=== PATIENT | female | born 1945 | race Caucasian/White ===

== ENCOUNTER 2018-03-14 01:33 | Inpatient (IN) | payer OTHER ==
[2018-03-14] MEDS ORDERED: HYDROCODONE/APAP 7.5/325 MG TAB ONE (02:33)
[2018-03-14] MEDS ORDERED: MEPERIDINE HCL 25 MG/0.5 ML ONE ×2 (03:40→05:04)
[2018-03-14] MEDS ORDERED: PROMETHAZINE 25 MG/ML VIAL ONE (03:41)
[2018-03-14 03:57] LABS: Absolute Lymphocytes (CBC) 1.3 K/uL (0.7-4.9); Absolute Neutrophil 14.5 K/uL (1.8-8.0); Basophils % 0.1 % (0-1.3); Eosinophils % 0.4 % (0-4.4); Hematocrit 41.5 % (36.0-45.0); MCH 27.3 pg (27.0-35.0); MCV 84.2 fL (80-100); MPV 7.7 fL (7.6-11.3); RBC Red Blood Cell Count 4.93 M/uL (3.86-4.86)
[2018-03-14 03:59] LABS: Protime INR 1.08
[2018-03-14 04:18] LABS: Potassium 3.6 mEq/L (3.6-5.0)
[2018-03-14 04:25] LABS: Albumin 4.2 g/dL (3.2-5.5); Bilirubin Direct 0.1 mg/dL (0-0.2); Bilirubin Total 0.4 mg/dL (0.3-1.2); Magnesium 1.9 mg/dL (1.8-2.5); Protein, Total 7.3 g/dL (6.0-8.3)
[2018-03-14 04:27] LABS: CKMB Creatine Kinase MB 2.7 ng/ml (0.3-4.0)
[2018-03-14] MEDS ORDERED: METOPROLOL TARTRATE 5 MG/5 ML INJ IV ONE (04:50)
--- NOTE | 2018-03-14 05:22 | EDPHYS ---
Physician Documentation [facility] Name: Rolando Cotto Age: 72 yrs Sex: Female : 1945 Arrival Date: 03/14/2018 Time: 01:49 Bed 15 Private MD: ED Physician Greg Antoine HPI: 03/14 02:51 This 72 yrs old Female presents to ER via EMS with unknown complaint. pkl 02:51 The patient or guardian reports an injury, pain. sustained from a fall. The complaints pkl affect the right hip. Onset: The symptoms/episode began/occurred just prior to arrival, 1 hour(s) ago. Associated signs and symptoms: Loss of consciousness: the patient experienced no loss of consciousness. Historical: - Allergies: 02:20 PENICILLINS; ea 02:20 Bactrim; ea - Home Meds: 02:20 carbamazepine 100 mg Oral chew 2 tabs every 8 hours [Active]; ea bisoprolol-hydrochlorothiazide 2.5-6.25 mg oral tab 1 tab once daily [Active]; losartan 100 mg oral tab 1 tab once daily [Active]; - PMHx: 02:20 Hypertension; ea - Immunization history:: Adult Immunizations up to date. - Social history:: Smoking status: Patient/guardian denies using tobacco. - Ebola Screening: : No symptoms or risks identified at this time. ROS: 02:51 Eyes: Negative for injury, pain, redness, and discharge, ENT: Negative for injury, pkl pain, and discharge, Neck: Negative for injury, pain, and swelling, Cardiovascular: Negative for chest pain, palpitations, and edema, Respiratory: Negative for shortness of breath, cough, wheezing, and pleuritic chest pain, Abdomen/GI: Negative for abdominal pain, nausea, vomiting, diarrhea, and constipation, Back: Negative for injury and pain, : Negative for injury, bleeding, discharge, and swelling. 02:51 MS/extremity: Positive for decreased range of motion, pain, of the right hip. 02:51 Skin: Negative for rash. 02:51 Neuro: Negative for altered mental status, loss of consciousness. Exam: 02:51 Head/Face: Normocephalic, atraumatic. Eyes: Pupils equal round and reactive to light, pkl extra-ocular motions intact. Lids and lashes normal. Conjunctiva and sclera are non-icteric and not injected. Cornea within normal limits. Periorbital areas with no swelling, redness, or edema. ENT: Nares patent. No nasal discharge, no septal abnormalities noted. Tympanic membranes are normal and external auditory canals are clear. Oropharynx with no redness, swelling, or masses, exudates, or evidence of obstruction, uvula midline. Mucous membranes moist. Neck: Trachea midline, no thyromegaly or masses palpated, and no cervical lymphadenopathy. Supple, full range of motion without nuchal rigidity, or vertebral point tenderness. No Meningismus. Chest/axilla: Normal chest wall appearance and motion. Nontender with no deformity. No lesions are appreciated. Cardiovascular: Regular rate and rhythm with a normal S1 and S2. No gallops, murmurs, or rubs. Normal PMI, no JVD. No pulse deficits. Respiratory: Lungs have equal breath sounds bilaterally, clear to auscultation and percussion. No rales, rhonchi or wheezes noted. No increased work of breathing, no retractions or nasal flaring. Abdomen/GI: Soft, non-tender, with normal bowel sounds. No distension or tympany. No guarding or rebound. No evidence of tenderness throughout. Back: No spinal tenderness. No costovertebral tenderness. Full range of motion. Skin: Warm, dry with normal turgor. Normal color with no rashes, no lesions, and no evidence of cellulitis. Neuro: Awake and alert, GCS 15, oriented to person, place, time, and situation. Cranial nerves II-XII grossly intact. Motor strength 5/5 in all extremities. Sensory grossly intact. Cerebellar exam normal. Normal gait. 02:51 Musculoskeletal/extremity: Extremities: grossly normal except: noted in the right hip: pain, tenderness, decreased ROM. Vital Signs: 01:30 BP 159 / 90; Pulse 129; Resp 18; Temp 97.6(O); Pulse Ox 93% on R/A; Weight 74.84 kg; ea Height 5 ft. 5 in. (165.10 cm); Pain 9/10; 03:51 BP 147 / 89; Pulse 144; Resp 18; Pulse Ox 97% on R/A; Pain 6/10; ea 04:30 BP 132 / 82; Pulse 139; Resp 18; Pulse Ox 98% ; ea 05:04 BP 138 / 72; Pulse 90; Resp 18; Pulse Ox 99% on 2 lpm NC; Pain 8/10; ea 05:44 BP 148 / 72; Pulse 84; Resp 18 S; Pulse Ox 97% on R/A; Pain 9/10; jd3 06:21 BP 131 / 58; Pulse 80; Resp 18; Temp 97.6(TE); Pulse Ox 99% on R/A; Pain 6/10; ea 01:30 Body Mass Index 27.46 (74.84 kg, 165.10 cm) ea MDM: 01:51 Patient medically screened. pkl 03:43 Data reviewed: vital signs, nurses notes, lab test result(s), EKG, radiologic studies, pkl plain films. 03/14 03:01 Order name: Basic Metabolic Panel; Complete Time: 04:59 pkl 03/14 03:01 Order name: BNP; Complete Time: 04:59 pkl 03/14 03:01 Order name: CBC with Diff; Complete Time: 06:26 pkl 03/14 03:01 Order name: Ckmb; Complete Time: 04:59 pkl 03/14 03:01 Order name: CPK; Complete Time: 04:59 pkl 03/14 03:01 Order name: LFT's; Complete Time: 04:59 pkl 03/14 02:31 Order name: Hip Right 2 View XRAY pkl 03/14 02:31 Order name: Pelvis XRAY pkl 03/14 03:00 Order name: XRAY CXR (1 view) pkl 03/14 03:01 Order name: Magnesium; Complete Time: 04:59 pkl 03/14 03:01 Order name: PT-INR; Complete Time: 04:59 pkl 03/14 03:01 Order name: Ptt, Activated; Complete Time: 04:59 pkl 03/14 03:01 Order name: Troponin (emerg Dept Use Only); Complete Time: 04:59 pkl 03/14 03:59 Order name: Manual Differential; Complete Time: 06:26 EDMS 03/14 03:01 Order name: EKG; Complete Time: 03:02 pkl 03/14 03:01 Order name: Cardiac monitoring; Complete Time: 04:49 pkl 03/14 03:01 Order name: EKG - Nurse/Tech; Complete Time: 04:49 pkl 03/14 03:01 Order name: IV Saline Lock; Complete Time: 04:50 pkl 03/14 03:01 Order name: Labs collected and sent; Complete Time: 04:50 pkl 03/14 03:01 Order name: O2 Per Protocol; Complete Time: 04:50 pkl 03/14 03:01 Order name: O2 Sat Monitoring; Complete Time: 04:50 pkl 03/14 03:01 Order name: Urine Dipstick-Ancillary (obtain specimen); Complete Time: 04:50 pkl Administered Medications: 02:35 Drug: [place] (7.5 mg-325 mg) 1 tabs Route: PO; ea 03:00 Follow up: Response: Pain is decreased jd3 04:19 Drug: Phenergan 12.5 mg Route: IVP; Site: right antecubital; ea 05:47 Follow up: Response: No adverse reaction; Nausea is decreased jd3 04:20 Drug: Demerol 25 mg Route: IVP; Site: right antecubital; ea 05:20 Follow up: Response: No adverse reaction jd3 05:00 Drug: NS 0.9% 1000 ml Route: IV; Rate: 100 ml/hr; Site: left antecubital; ea 05:47 Follow up: Response: No adverse reaction; IV Status: Infusion continued upon admission jd3 05:00 Drug: Lopressor 5 mg Route: IVP; Site: right antecubital; ea 05:47 Follow up: Response: Marked relief of symptoms jd3 05:12 Drug: Demerol 25 mg Route: IVP; Site: right antecubital; ea 05:40 Follow up: Response: No adverse reaction; Pain is unchanged, physician notified jd3 05:44 Drug: fentaNYL (PF) 50 mcg Route: IVP; Site: right antecubital; ea 06:11 Follow up: Response: No adverse reaction; Pain is decreased ea Disposition: 03/14/18 05:22 Hospitalization ordered by Jewel Mendiola for Inpatient Admission. Preliminary diagnosis is Subcapital fracture right femur. Supraventricular tachycardia. - Bed requested for Telemetry/MedSurg (Inpatient). - Status is Inpatient Admission. ea - Condition is Stable. - Problem is new. - Symptoms have improved. UTI on Admission? No Signatures: Dispatcher [employer] EDWY Elsa Mcmahon RN Greg Fragoso MD MD pkl Vivien David RN RN ea Davies, Jonathon RN jd3 Corrections: (The following items were deleted from the chart) 05:29 05:22 Hospitalization Ordered by Jewel Mendiola MD for Inpatient Admission. Preliminary mw diagnosis is Subcapital fracture right femur. Supraventricular tachycardia. Bed requested for Telemetry/MedSurg (Inpatient). Status is Inpatient Admission. Condition is Stable. Problem is new. Symptoms have improved. UTI on Admission? No. pkl 06:22 05:29 03/14/2018 05:22 Hospitalization Ordered by Jewel Mendiola MD for Inpatient ea Admission. Preliminary diagnosis is Subcapital fracture right femur. Supraventricular tachycardia. Bed requested for Telemetry/MedSurg (Inpatient). Status is Inpatient Admission. Condition is Stable. Problem is new. Symptoms have improved. UTI on Admission? No. mw
--- NOTE | 2018-03-14 05:22 | ER ---
Nurse's Notes [facility] Name: Rolando Cotto Age: 72 yrs Sex: Female : 1945 Arrival Date: 03/14/2018 Time: 01:49 Bed 15 Private MD: Diagnosis: Subcapital fracture right femur. Supraventricular tachycardia Presentation: 03/14 01:30 Presenting complaint: EMS states: Pt lost balance and fell. Pt denied hitting head or ea LOC. EMS states pt reported pain to right upper thigh that radiated to the groin and lower back. Transition of care: patient was not received from another setting of care. Onset of symptoms was March 14, 2018. Risk Assessment: Do you want to hurt yourself or someone else? Patient reports no desire to harm self or others. Initial Sepsis Screen: Does the patient meet any 2 criteria? No. Patient's initial sepsis screen is negative. Does the patient have a suspected source of infection? No. Patient's initial sepsis screen is negative. Care prior to arrival: None. 01:30 Method Of Arrival: EMS: [facility] ea 01:30 Acuity: [place] 3 ea Triage Assessment: 01:30 General: Appears uncomfortable, Behavior is cooperative. Pain: Complains of pain in ea right quadriceps Pain radiates to pelvis Pain currently is 9 out of 10 on a pain scale. Quality of pain is described as aching. EENT: No signs and/or symptoms were reported regarding the EENT system. Neuro: Level of Consciousness is awake, alert, obeys commands, Oriented to person, place, time, situation. Cardiovascular: Heart tones S1 S2 present Patient's skin is warm and dry. Respiratory: Airway is patent Respiratory effort is even, unlabored, Respiratory pattern is regular, symmetrical, Breath sounds are clear bilaterally. GI: No signs and/or symptoms were reported involving the gastrointestinal system. : No signs and/or symptoms were reported regarding the genitourinary system. Derm: Skin is pink, warm \T\ dry. Musculoskeletal: Reports pain in right quadriceps. Historical: - Allergies: 02:20 PENICILLINS; ea 02:20 Bactrim; ea - Home Meds: 02:20 carbamazepine 100 mg Oral chew 2 tabs every 8 hours [Active]; ea bisoprolol-hydrochlorothiazide 2.5-6.25 mg oral tab 1 tab once daily [Active]; losartan 100 mg oral tab 1 tab once daily [Active]; - PMHx: 02:20 Hypertension; ea - Immunization history:: Adult Immunizations up to date. - Social history:: Smoking status: Patient/guardian denies using tobacco. - Ebola Screening: : No symptoms or risks identified at this time. Screenin:22 Abuse screen: Denies threats or abuse. Nutritional screening: No deficits noted. ea Tuberculosis screening: No symptoms or risk factors identified. Fall Risk Fall in past 12 months (25 points). Assessment: 02:00 Reassessment: Patient and/or family updated on plan of care and expected duration. Pain ea level reassessed. Patient is alert, oriented x 3, equal unlabored respirations, skin warm/dry/pink. Awaiting results. 03:30 Reassessment: Patient and/or family updated on plan of care and expected duration. Pain ea level reassessed. Patient is alert, oriented x 3, equal unlabored respirations, skin warm/dry/pink. 04:55 Reassessment: Patient and/or family updated on plan of care and expected duration. Pain ea level reassessed. Patient is alert, oriented x 3, equal unlabored respirations, skin warm/dry/pink. 05:13 Reassessment: Patient and/or family updated on plan of care and expected duration. Pain ea level reassessed. Pt resting with eyes closed, respirations even and unlabored, chest expansions even and symmetrical. No s/s of pain or discomfort noted at this time. 06:11 Reassessment: Patient and/or family updated on plan of care and expected duration. Pain ea level reassessed. Patient is alert, oriented x 3, equal unlabored respirations, skin warm/dry/pink. Report called to Jennifer on fourth floor. Vital Signs: 01:30 BP 159 / 90; Pulse 129; Resp 18; Temp 97.6(O); Pulse Ox 93% on R/A; Weight 74.84 kg; ea Height 5 ft. 5 in. (165.10 cm); Pain 9/10; 03:51 BP 147 / 89; Pulse 144; Resp 18; Pulse Ox 97% on R/A; Pain 6/10; ea 04:30 BP 132 / 82; Pulse 139; Resp 18; Pulse Ox 98% ; ea 05:04 BP 138 / 72; Pulse 90; Resp 18; Pulse Ox 99% on 2 lpm NC; Pain 8/10; ea 05:44 BP 148 / 72; Pulse 84; Resp 18 S; Pulse Ox 97% on R/A; Pain 9/10; jd3 06:21 BP 131 / 58; Pulse 80; Resp 18; Temp 97.6(TE); Pulse Ox 99% on R/A; Pain 6/10; ea 01:30 Body Mass Index 27.46 (74.84 kg, 165.10 cm) ea ED Course: 01:30 Patient has correct armband on for positive identification. Bed in low position. Call ea light in reach. Side rails up X2. 01:30 Arm band placed on right wrist. Patient placed in an exam room, on a stretcher, on ea oxygen, on pulse oximetry. 01:49 Patient arrived in ED. ea 01:51 Greg Antoine MD is Attending Physician. pkl 02:16 Triage completed. ea 02:46 Vivien David RN is Primary Nurse. ea 03:08 X-ray completed. Portable x-ray completed in exam room. Patient tolerated procedure kw well. 03:12 Hip Right 2 View XRAY In Process Unspecified. EDMS 03:12 Pelvis XRAY In Process Unspecified. EDMS 03:12 XRAY CXR (1 view) In Process Unspecified. EDMS 04:50 Inserted saline lock: 22 gauge in right forearm, using aseptic technique. Blood ea collected. 05:21 Jewel Mendiola MD is Hospitalizing Provider. pkl 05:30 No provider procedures requiring assistance completed. ea 06:21 Patient admitted, IV remains in place. ea Administered Medications: 02:35 Drug: [place] (7.5 mg-325 mg) 1 tabs Route: PO; ea 03:00 Follow up: Response: Pain is decreased jd3 04:19 Drug: Phenergan 12.5 mg Route: IVP; Site: right antecubital; ea 05:47 Follow up: Response: No adverse reaction; Nausea is decreased jd3 04:20 Drug: Demerol 25 mg Route: IVP; Site: right antecubital; ea 05:20 Follow up: Response: No adverse reaction jd3 05:00 Drug: NS 0.9% 1000 ml Route: IV; Rate: 100 ml/hr; Site: left antecubital; ea 05:47 Follow up: Response: No adverse reaction; IV Status: Infusion continued upon admission jd3 05:00 Drug: Lopressor 5 mg Route: IVP; Site: right antecubital; ea 05:47 Follow up: Response: Marked relief of symptoms jd3 05:12 Drug: Demerol 25 mg Route: IVP; Site: right antecubital; ea 05:40 Follow up: Response: No adverse reaction; Pain is unchanged, physician notified jd3 05:44 Drug: fentaNYL (PF) 50 mcg Route: IVP; Site: right antecubital; ea 06:11 Follow up: Response: No adverse reaction; Pain is decreased ea Outcome: 05:22 Decision to Hospitalize by Provider. pkjunaid 05:34 Instructed on the need for admit. ea 06:20 Admitted to Med/surg accompanied by tech, via stretcher, with chart, Report called to fred Rodriguez RN 06:20 Condition: stable 06:22 Patient left the ED. ea Signatures: Dispatcher [employer] EDGreg Razo MD MD pkl Whitley, Kimberlee kw Antunez, Elena, RN RN Arnadlo Garcia RN RN jd3
[2018-03-14] MEDS ORDERED: MORPHINE 2 MG/ML SYR IV PRN (05:27)
[2018-03-14] MEDS ORDERED: ONDANSETRON 4 MG/2 ML VIAL IV PRN (05:27)
[2018-03-14] MEDS ORDERED: FENTANYL CITR 100 MCG/2 ML ONE (05:44)
[2018-03-14] MEDS: NA CHLORIDE 0.9% 1,000 ML IV SCH ×3 (06:00→20:26)
[2018-03-14 06:08] LABS: Blood Morphology Comment NOT SEEN (NOT SEEN); Platelet Estimate ADEQ
--- NOTE | 2018-03-14 08:16 | RAD REPORT ---
EXAM DESCRIPTION: Guy Single View03/14/2018 3:12 am CLINICAL HISTORY: Chest pain COMPARISON: none FINDINGS: The lungs appear clear of acute infiltrate. An area of scarring is present within the lef t lung. Calcified left lung granuloma is seen. The heart is normal size IMPRESSION: No acute abnormalities displayed
--- NOTE | 2018-03-14 08:17 | RAD REPORT ---
EXAM DESCRIPTION: RAD - Pelvis - 03/14/2018 3:12 am CLINICAL HISTORY: Pelvic pain status post injury FINDINGS: A transcervical fracture involves the right femur with mild displacement of fracture fragm ents. No dislocation is seen
--- NOTE | 2018-03-14 08:18 | RAD REPORT ---
EXAM DESCRIPTION: RAD - Hip Right 2 View - 03/14/2018 3:12 am CLINICAL HISTORY: Right hip pain FINDINGS: A transcervical fracture involves the right femur with mild displacement of fracture fragm ents. No dislocation is seen
[2018-03-14 10:22] VITALS: BMI 32.5
[2018-03-14] MEDS: MORPHINE 4 MG/ML SYR IV PRN ×2 (11:49→17:54)
--- NOTE | 2018-03-14 13:47 | CON ---
Date of Consultation: 03/14/2018 History Of Present Illness: Ms. Cotto is a 72-year-old female, who was seen in the past for a diff erent problem, this being the left knee pain accompanied with arthritis. She has been admitted. She had a fall last night injuring her right lower extremity. She was seen and examined in the emergenc y department. She was ruled out for other injuries; however, x-rays demonstrated displaced femoral n caor fracture on the right. Physical Examination: All the long bones and joints are palpated without pain with the exception of her right hip, which is painful to palpation or manipulation. Diagnostic Data: X-rays were reviewed, which revealed a displaced femoral neck fracture on the right . Assessment: This is a 72-year-old female, now with a displaced femoral neck fracture on the right. All risks, benefits, and alternatives to bipolar hemiarthroplasty were discussed with the patient and her family. They state they understand things as presented and wishes to proceed. Most likely, we will proceed tomorrow probably around 4 p.m. and she should be n.p.o. after 8 a.m. tomorrow morning. Otherwise all of her questions have been invited and answered today. ILIANA Voice ID: [id number] Report ID: [id number]
[2018-03-14] MEDS: CARBAMAZEPINE 200 MG TAB PO SCH ×2 (14:19→20:26)
--- NOTE | 2018-03-14 17:58 | P.HP ---
Certification for Inpatient Patient admitted to: Inpatient With expected LOS: >2 Midnights Practitioner: I am a practitioner with admitting privileges, knowledge of patient current condition, hospital course, and medical plan of care. Services: Services provided to patient in accordance with Admission requirements found in Title 42 Section 412.3 of the Code of Federal Regulations Patient History Date of Service: 03/14/18 Reason for admission: RIGHT HIP PAIN, SP FALL History of Present Illness: MS. HINKLE FELL ON RIGHT TROCHANTER AFTER GETTING UP. SHE AT TIMES GOES SIDWAYS AFTER SHE GETS UP AND SO HAPPENED TODAY ALSO. SHE HAS SUBCAPITAL FRACTURE. Allergies guaifenesin Allergy (Verified 11/18/17 17:48) Nausea/Vomiting Penicillins Allergy (Verified 11/18/17 17:48) Itching sulfamethoxazole [From Bactrim] Allergy (Verified 11/18/17 17:48) Nausea/Vomiting trimethoprim [From Bactrim] Allergy (Verified 11/18/17 17:48) Nausea/Vomiting Home Medications: Bisoprolol Fumarate [Zebeta] 5 mg PO DAILY 03/14/18 Carbamazepine 100 mg PO TID 03/14/18 Losartan Potassium [Cozaar] 100 mg PO DAILY 03/14/18 - Past Medical/Surgical History Has patient received pneumonia vaccine in the past: Yes Diabetic: No -: HTN -: trigeminal naurialgia -: skin cancer -: brain surgery/ screws -: cesearian -: radial rhiesotomy -: right breast beningn cyst removal - Family History Mother -: Hypertension, Cancer Father -: Stroke, Cancer - Social History Smoking Status: Never smoker Alcohol use: No CD- Drugs: No Caffeine use: Yes Place of Residence: Home Review of Systems 10-point ROS is otherwise unremarkable Musculoskeletal: As per HPI Physical Examination - Vital Signs Temperature: 97.0 F Blood Pressure: 184/80 Pulse: 83 Respirations: 18 Pulse Ox (%): 97 - Physical Exam General: Alert, Moderate distress HEENT: Atraumatic, PERRLA, Mucous membr. moist/pink, EOMI, Sclerae nonicteric Neck: Supple, 2+ carotid pulse no bruit, No LAD, Without JVD or thyroid abnormality Respiratory: Clear to auscultation bilaterally, Normal air movement Cardiovascular: Regular rate/rhythm, Normal S1 S2 Gastrointestinal: Normal bowel sounds, No tenderness Musculoskeletal: Other (RIGHT HP PAIN, SEVERE.) Integumentary: No rashes Neurological: Normal gait, Normal speech, Normal strength at 5/5 x4 extr, Normal tone, Normal affect Lymphatics: No axilla or inguinal lymphadenopathy - Studies Laboratory Data (last 24 hrs) 03/14/18 03:28: PT 12.7 H, INR 1.08, APTT 29.8 03/14/18 03:28: WBC 16.9 H, Hgb 13.5, Hct 41.5, Plt Count 240 03/14/18 03:28: B-Natriuretic Peptide 90 03/14/18 03:28: Sodium 135, Potassium 3.6, BUN 16, Creatinine 0.88, Glucose 165 H, Magnesium 1.9, Total Bilirubin 0.4, AST 25, ALT 18, Alkaline Phosphatase 92 Assessment and Plan - Problems (Diagnosis) (1) Hip fracture, right Current Visit: Yes Status: Acute Plan: DR. NEVES TO DO SURGERY IN AM MEDICALLY CLEARED WITH MILD RISK NO PERSONAL HISTORY OF CAD, SYMPTOMS OR RISK FACTORS EXCEPT FOR AGE. Qualifiers: Encounter type: initial encounter Fracture type: closed Qualified Code(s) : S72.001A - Fracture of unspecified part of neck of right femur, initial encounter for closed fracture (2) Chronic skin ulcer with fat layer exposed Current Visit: Yes Status: Chronic Plan: LISETH HAD ONE MORE BIOPSY AND I HAVE TO SEND THIS TO DR VILLELA 3 LOCAL LOT ATTENDANT HAVE NO ANSWERS YET. - Advance Directives Does patient have a Living Will: Yes Does patient have a Durable POA for Healthcare: Yes
[2018-03-14] MEDS: GABAPENTIN 100 MG CAP PO SCH (20:25)
[2018-03-14] MEDS ORDERED: CARBAMAZEPINE 200 MG TAB PO SCH (21:00)
[2018-03-15] MEDS ORDERED: MORPHINE 4 MG/ML SYR ONE (05:00)
[2018-03-15] MEDS: CARBAMAZEPINE 200 MG TAB PO SCH ×3 (08:26→20:18)
[2018-03-15] MEDS: GABAPENTIN 100 MG CAP PO SCH ×3 (08:26→20:18)
[2018-03-15] MEDS: BISOPROLOL 5 MG TABLET PO SCH (08:27)
[2018-03-15] MEDS: LOSARTAN POTASSIUM 50 MG TABLET PO SCH (08:27)
[2018-03-15] MEDS ORDERED: HOME MED 1 EA UNK (Losartan Potassium [Cozaar] 100 MG) PO SCH (09:00)
[2018-03-15] MEDS: NA CHLORIDE 0.9% 1,000 ML IV SCH ×2 (11:39→23:00)
[2018-03-15] MEDS: MORPHINE 4 MG/ML SYR IV PRN (15:55)
--- NOTE | 2018-03-15 18:28 | P.PN ---
Subjective Date of Service: 03/15/18 Chief Complaint: RIGHT HIP PAIN, SP FALL Subjective: Improving (SURGERY TODAY) Review of Systems 10-point ROS is otherwise unremarkable Musculoskeletal: Leg Pain, As per HPI Physical Examination - Vital Signs Temperature: 98.6 F Blood Pressure: 178/90 Pulse: 87 Respirations: 18 Pulse Ox (%): 96 - Physical Exam General: Alert, Mild distress HEENT: Atraumatic, PERRLA, EOMI Neck: Supple, JVD not distended Respiratory: Clear to auscultation bilaterally, Normal air movement Cardiovascular: Regular rate/rhythm, Normal S1 S2 Gastrointestinal: Normal bowel sounds, No tenderness Musculoskeletal: Other Integumentary: No rashes Neurological: Normal speech, Normal tone, Normal affect Lymphatics: No axilla or inguinal lymphadenopathy - Studies Medications List Reviewed: Yes Assessment And Plan - Current Problems (Diagnosis) (1) Hip fracture, right Current Visit: Yes Status: Acute Plan: DR. NEVES TO DO SURGERY IN AM MEDICALLY CLEARED WITH MILD RISK NO PERSONAL HISTORY OF CAD, SYMPTOMS OR RISK FACTORS EXCEPT FOR AGE. SURGERY TODAY. Qualifiers: Encounter type: initial encounter Fracture type: closed Qualified Code(s) : S72.001A - Fracture of unspecified part of neck of right femur, initial encounter for closed fracture (2) Chronic skin ulcer with fat layer exposed Current Visit: Yes Status: Chronic Plan: LISETH HAD ONE MORE BIOPSY AND I HAVE TO SEND THIS TO DR VILLELA 3 LOCAL CORPORATE SAFETY DIRECTOR HAVE NO ANSWERS YET. BX REPORT SHOWS ARTHROPOD INFESTATION REACTION. I ADVISED NEW MATTRESS TO THEM AND WASH SHEETS IN HOT WATER.
[2018-03-15] MEDS ORDERED: ENOXAPARIN 30 MG/0.3 ML SQ ONE (19:00)
[2018-03-16] MEDS: MORPHINE 4 MG/ML SYR IV PRN ×3 (04:21→22:37)
[2018-03-16] MEDS: NA CHLORIDE 0.9% 1,000 ML IV SCH ×2 (08:42→18:00)
[2018-03-16] MEDS: LOSARTAN POTASSIUM 50 MG TABLET PO SCH (08:42)
[2018-03-16] MEDS: CARBAMAZEPINE 200 MG TAB PO SCH ×3 (08:43→22:30)
[2018-03-16] MEDS: GABAPENTIN 100 MG CAP PO SCH ×3 (08:44→22:31)
[2018-03-16] MEDS: BISOPROLOL 5 MG TABLET PO SCH (08:44)
[2018-03-16] MEDS: TRIAMCINOLONE ACETONIDE IH SCH (08:50)
[2018-03-16] MEDS ORDERED: Ringers Lactate 1,000 ML IV ONE ×2 (12:50→16:20)
[2018-03-16] MEDS ORDERED: LIDOCAINE 1% MPF 5 ML VIAL ONE (13:40)
[2018-03-16] MEDS ORDERED: FENTANYL CITR 100 MCG/2 ML ONE ×2 (13:40→15:54)
[2018-03-16] MEDS ORDERED: PROPOFOL 200 MG/20 ML VIAL IV ONE (13:40)
[2018-03-16] MEDS ORDERED: TRANEXAMIC ACID 1,000 MG in NA CHLORIDE 0.9% 50 ML IV SCH (14:15)
[2018-03-16] MEDS ORDERED: CLINDAMYCIN INJ 900 MG in NA CHLORIDE 0.9% 50 ML IV ONE (14:15)
[2018-03-16] MEDS ORDERED: ROCURONIUM 50 MG/5 ML VIAL IV ONE ×2 (14:22→15:47)
[2018-03-16] MEDS ORDERED: EPHEDRINE SULF 50 MG/ML SYR ONE (15:10)
[2018-03-16] MEDS ORDERED: NS 0.9% VIAL 10 ML ONE (15:11)
[2018-03-16] MEDS ORDERED: NA CHLORIDE 0.9% 1,000 ML ONE (16:20)
[2018-03-16] MEDS ORDERED: GLYCOPYRROLATE 0.2 MG/ML SYR ONE (16:49)
[2018-03-16] MEDS ORDERED: NEOSTIGMINE 1 MG/ML -5 ML SYRINGE ONE (16:58)
--- NOTE | 2018-03-16 16:58 | P.BOP ---
Preoperative diagnosis: right hip femoral neck fx Postoperative diagnosis: same Primary procedure: right hip hemiarthoplasty Estimated blood loss: 300 ccs Anesthesia: General Complications: None Transferred to: Recovery Room Condition: Good
[2018-03-16] MEDS ORDERED: MEPERIDINE HCL 25 MG/0.5 ML ONE (17:30)
--- NOTE | 2018-03-16 21:25 | P.PN ---
Subjective Date of Service: 03/16/18 Chief Complaint: RIGHT HIP PAIN, SP FALL SURGERY TODAY. DELAYED BYA DAY. Review of Systems 10-point ROS is otherwise unremarkable Physical Examination - Vital Signs Temperature: 97.4 F Blood Pressure: 133/59 Pulse: 77 Respirations: 17 Pulse Ox (%): 94 - Physical Exam General: Alert, In no apparent distress HEENT: Atraumatic, PERRLA, EOMI Neck: Supple, JVD not distended Respiratory: Clear to auscultation bilaterally, Normal air movement Cardiovascular: Regular rate/rhythm, Normal S1 S2 Gastrointestinal: Normal bowel sounds, No tenderness Musculoskeletal: No tenderness Integumentary: No rashes Neurological: Normal speech, Normal tone, Normal affect Lymphatics: No axilla or inguinal lymphadenopathy - Studies Medications List Reviewed: Yes Assessment And Plan - Current Problems (Diagnosis) (1) Hip fracture, right Current Visit: Yes Status: Acute Plan: DR. NEVES TO DO SURGERY IN AM MEDICALLY CLEARED WITH MILD RISK NO PERSONAL HISTORY OF CAD, SYMPTOMS OR RISK FACTORS EXCEPT FOR AGE. SURGERY TODAY. Qualifiers: Encounter type: initial encounter Fracture type: closed Qualified Code(s) : S72.001A - Fracture of unspecified part of neck of right femur, initial encounter for closed fracture (2) Chronic skin ulcer with fat layer exposed Current Visit: Yes Status: Chronic Plan: LISETH HAD ONE MORE BIOPSY AND I HAVE TO SEND THIS TO DR VILLELA 3 LOCAL ONLINE EDITOR HAVE NO ANSWERS YET. BX REPORT SHOWS ARTHROPOD INFESTATION REACTION. I ADVISED NEW MATTRESS TO THEM AND WASH SHEETS IN HOT WATER. SHE HAS SPORADIC RARE SPOTS, NONE ACTIVE FOR NOW SKIN DOES NOT HAVE ANY ACUTE INFESTATTION.
[2018-03-17] MEDS: NA CHLORIDE 0.9% 1,000 ML IV SCH ×4 (00:12→20:44)
[2018-03-17] MEDS ORDERED: CEFAZOLIN/NS 1gm 1 GM/50 ML BAG IVPB SCH (01:00)
[2018-03-17] MEDS ORDERED: CEFAZOLIN SODIUM 1 GM/VIAL ONE (01:17)
[2018-03-17] MEDS ORDERED: NA CHLORIDE 0.9% 50 ML ONE (01:30)
[2018-03-17] MEDS: MORPHINE 4 MG/ML SYR IV PRN ×3 (02:12→10:21)
--- NOTE | 2018-03-17 03:29 | OP ---
Date of Procedure: 03/16/2018 Surgeon: Jb Patel MD Preoperative Diagnosis: Right hip femoral neck fracture which is displaced. Postoperative Diagnosis: Right hip femoral neck fracture which is displaced. Procedure: Right hip hemiarthroplasty using the Biomet fracture stem which is cemented. Complications: There were no complications. Specimen: The bone was sent to Pathology. Estimated Blood Loss: 300 cc. Indication For Operation: Ms. Cotto is a 72-year-old female who unfortunately fell injuring her [facility] lower extremity. She was seen and examined in the emergency department, where she was ruled out for other injuries. However, unfortunately, x-rays demonstrated a displaced right femoral neck fract ure. All risks, benefits, and alternatives of treating this have been discussed with the patient and family. They state they understand things as presented and wished to proceed. Description Of Procedure: The patient was taken to the operating room and placed in supine position. General anesthesia was obtained by Anesthesia staff. Following this, she was then transferred onto the operative table. She was then rolled left side down with all her bony prominences being checked and an axillary roll being used. She was then properly positioned using the hip positioners. Her [facility] lower extremity was then prepped and draped in usual sterile fashion for the procedure. A stand cynthia posterolateral incision was then taken down carefully through skin and soft tissue. There was qu ite a bit of adipose tissue. However, the correct incisional plane was maintained as we progress thr ough the adipose tissue with meticulous hemostasis being maintained. Following this, the fascia was encountered. A small stab wound was made in the fascia. The gluteal tendon was palpated to ensure c orrect placement of the fascial incision. This was then brought up slowly until near the tip of the greater trochanter when the fibers of the gluteus frank were encountered. They were then divided. Following this, some bursal tissue was removed and then the external rotators and capsule were then taken down and tagged for later repair. A Hohmann was placed under the lesser trochanter and a stand cynthia corduroy cutter operator perhaps slightly lower than standard neck cut was then achieved. This was followed b y removal of the neck pieces. The head was then removed and sized by ring gauges. Any obstructions or material within the acetabulum was gently removed. This was then irrigated. Following this, atte ntion turned back to the femur where a box shook patcher was used to lateralize. This was followed by cylin drical reaming up to a size 15, which was fairly surprising. However, broaching progressed to a size 13 progressing with a 14 may have been possible but perhaps fracturing the femur. Therefore, decisi on was made to place an 11 stem cemented. Femoral canal was then copiously irrigated until it runs c lean. Two Ray-Tecs were placed within the acetabulum. Third generation cementation technique was th en used and the fracture stem was then placed to appropriate depth and appropriate version. This was held in place until the cement was allowed to harden. Any unsupported cement was removed. The Ray- Tecs were removed from the acetabulum. I then trialed with a +3. This was somewhat difficult to red uce because of the patient's size, however, after it was reduced was found to be stable to greater th an 90 degrees of flexion, full adduction, and at least 45 degrees of internal rotation. There was no shuck. She does come back to full extension as well demonstrating it did not appear to be too tight . The trial ball was then removed. The wound was copiously irrigated and checked for any obstructio ns in the acetabulum. The final ball was then placed and relocated. It was stable and the same para meters. It was again irrigated and the external rotators and capsule were repaired back to the great er trochanter via bone tunnels. Had again irrigated and the fascia closed in a watertight fashion us ing heavy Vicryl sutures. Was again irrigated and the skin was closed using Vicryl sutures, followed by brooks. The patient was then placed in Aquacel dressing as well as a hip abduction pillow, awakened, and taken to recovery room in good condition. There were no complica tions. SE/MODL Voice ID: [id number] Report ID: [id number]
[2018-03-17 05:21] LABS: Absolute Lymphocytes (CBC) 1.1 K/uL (0.7-4.9); Absolute Neutrophil 7.7 K/uL (1.8-8.0); Basophils % 0.4 % (0-1.3); Eosinophils % 0.4 % (0-4.4); Hematocrit 30.8 % (36.0-45.0); Lymphocytes % 11.3 % (15.3-44.8); MCH 28.6 pg (27.0-35.0); MPV 8.1 fL (7.6-11.3); RBC Red Blood Cell Count 3.76 M/uL (3.86-4.86)
[2018-03-17 05:40] LABS: Potassium 3.8 mEq/L (3.6-5.0)
[2018-03-17] MEDS ORDERED: CEFAZOLIN/SWI 1gm 1 GM/10 ML SYR IV ONE (09:00)
[2018-03-17] MEDS: TRIAMCINOLONE ACETONIDE IH SCH (09:00)
[2018-03-17] MEDS: CARBAMAZEPINE 200 MG TAB PO SCH ×3 (09:05→20:39)
[2018-03-17] MEDS: BISOPROLOL 5 MG TABLET PO SCH (09:06)
[2018-03-17] MEDS: GABAPENTIN 100 MG CAP PO SCH ×3 (09:07→20:39)
[2018-03-17] MEDS: LOSARTAN POTASSIUM 50 MG TABLET PO SCH (09:07)
--- NOTE | 2018-03-17 13:08 | P.PN ---
Subjective Date of Service: 03/17/18 Chief Complaint: RIGHT HIP PAIN, SP FALL Subjective: Improving SURGERY TODAY. DELAYED BYA DAY. SP HIP REPAIR. Review of Systems 10-point ROS is otherwise unremarkable Physical Examination - Vital Signs Temperature: 99.2 F Blood Pressure: 144/68 Pulse: 104 Respirations: 18 Pulse Ox (%): 97 - Physical Exam General: Alert, Mild distress HEENT: Atraumatic, PERRLA, EOMI Neck: Supple, JVD not distended Respiratory: Clear to auscultation bilaterally, Normal air movement Cardiovascular: Regular rate/rhythm, Normal S1 S2 Gastrointestinal: Normal bowel sounds, No tenderness Musculoskeletal: No tenderness Integumentary: No rashes Neurological: Normal speech, Normal tone, Normal affect Lymphatics: No axilla or inguinal lymphadenopathy - Studies Medications List Reviewed: Yes Assessment And Plan - Current Problems (Diagnosis) (1) Hip fracture, right Current Visit: Yes Status: Acute Plan: DR. NEVES TO DO SURGERY IN AM MEDICALLY CLEARED WITH MILD RISK NO PERSONAL HISTORY OF CAD, SYMPTOMS OR RISK FACTORS EXCEPT FOR AGE. SURGERY TODAY. SP SURGERY STABLE TOREHAB IN AM. Qualifiers: Encounter type: initial encounter Fracture type: closed Qualified Code(s) : S72.001A - Fracture of unspecified part of neck of right femur, initial encounter for closed fracture (2) Chronic skin ulcer with fat layer exposed Current Visit: Yes Status: Chronic Plan: LISETH HAD ONE MORE BIOPSY AND I HAVE TO SEND THIS TO DR VILLELA 3 LOCAL VENEER DRIER TAILER HAVE NO ANSWERS YET. BX REPORT SHOWS ARTHROPOD INFESTATION REACTION. I ADVISED NEW MATTRESS TO THEM AND WASH SHEETS IN HOT WATER. SHE HAS SPORADIC RARE SPOTS, NONE ACTIVE FOR NOW SKIN DOES NOT HAVE ANY ACUTE INFESTATTION.
[2018-03-17] MEDS: ACETAMINOPHEN 500 MG TAB PO PRN (15:10)
[2018-03-17] MEDS: ENOXAPARIN 30 MG/0.3 ML SQ SCH (20:46)
--- NOTE | 2018-03-18 03:09 | DS ---
Subjective: The patient is seen today. She has recently completed physical therapy. She physical therapy for a while. When she attempted to stand, she was a little lightheaded and therefo re did very limited standing today, but otherwise doing well. Her heels are nontender. EHL, tibiali s anterior, and plantar flexion are strong. Her dressing is clean, dry, and intact. Her hemoglobin was in the 10s. At this point, we will start Lovenox. We will continue with physical therapy. I wi ll follow her at this time. ILIANA Voice ID: [id number] Report ID: [id number]
[2018-03-18] MEDS: ACETAMINOPHEN 500 MG TAB PO PRN ×2 (04:15→13:40)
[2018-03-18 05:37] LABS: Absolute Lymphocytes (CBC) 1.3 K/uL (0.7-4.9); Absolute Monocytes 1.4 K/uL (0.1-1.3); Absolute Neutrophil 7.5 K/uL (1.8-8.0); Basophils % 0.4 % (0-1.3); Eosinophils % 0.5 % (0-4.4); Hematocrit 28.1 % (36.0-45.0); Lymphocytes % 12.8 % (15.3-44.8); MCH 28.4 pg (27.0-35.0); MCV 82.8 fL (80-100); MPV 8.5 fL (7.6-11.3); Monocytes % 13.7 % (3.3-12.3); RBC Red Blood Cell Count 3.39 M/uL (3.86-4.86)
[2018-03-18] MEDS: NA CHLORIDE 0.9% 1,000 ML IV SCH ×3 (06:29→20:00)
[2018-03-18] MEDS: TRIAMCINOLONE ACETONIDE IH SCH (09:00)
[2018-03-18] MEDS: LOSARTAN POTASSIUM 50 MG TABLET PO SCH (10:23)
[2018-03-18] MEDS: BISOPROLOL 5 MG TABLET PO SCH (10:23)
[2018-03-18] MEDS: ENOXAPARIN 30 MG/0.3 ML SQ SCH ×2 (10:23→20:59)
[2018-03-18] MEDS: GABAPENTIN 100 MG CAP PO SCH ×3 (10:23→20:58)
[2018-03-18] MEDS: CARBAMAZEPINE 200 MG TAB PO SCH ×3 (10:23→20:59)
--- NOTE | 2018-03-18 16:47 | RAD REPORT ---
EXAM DESCRIPTION: RAD - Chest Single View - 03/18/2018 4:29 pm CLINICAL HISTORY: Fever, chest pain COMPARISON: 03/14/2018 FINDINGS: Portable technique limits examination quality. The lungs are grossly clear. The heart is normal in size. No displaced fractures. IMPRESSION: No acute intrathoracic process suspected.
--- NOTE | 2018-03-18 16:53 | P.PN ---
Subjective Date of Service: 03/18/18 Chief Complaint: FEVER TODAY Subjective: New changes SURGERY TODAY. DELAYED BYA DAY. SP HIP REPAIR. FEVER THIS PM NURSE CALLED. Review of Systems 10-point ROS is otherwise unremarkable General: Fever Physical Examination - Vital Signs Temperature: 101.5 F Blood Pressure: 152/70 Pulse: 104 Respirations: 18 Pulse Ox (%): 92 - Physical Exam General: Mild distress (FROM HIP.) HEENT: Atraumatic, PERRLA, EOMI Neck: Supple, JVD not distended Respiratory: Clear to auscultation bilaterally, Normal air movement Cardiovascular: Regular rate/rhythm, Normal S1 S2 Gastrointestinal: Normal bowel sounds, No tenderness Musculoskeletal: No tenderness Integumentary: No rashes Neurological: Normal speech, Normal tone, Normal affect Lymphatics: No axilla or inguinal lymphadenopathy - Studies Medications List Reviewed: Yes Assessment And Plan - Current Problems (Diagnosis) (1) Hip fracture, right Current Visit: Yes Status: Acute Plan: DR. NEVES TO DO SURGERY IN AM MEDICALLY CLEARED WITH MILD RISK NO PERSONAL HISTORY OF CAD, SYMPTOMS OR RISK FACTORS EXCEPT FOR AGE. SURGERY TODAY. SP SURGERY STABLE TOREHAB IN AM. Qualifiers: Encounter type: initial encounter Fracture type: closed Qualified Code(s) : S72.001A - Fracture of unspecified part of neck of right femur, initial encounter for closed fracture (2) Chronic skin ulcer with fat layer exposed Current Visit: Yes Status: Chronic Plan: LISETH HAD ONE MORE BIOPSY AND I HAVE TO SEND THIS TO DR VILLELA 3 LOCAL QUILLER HAND HAVE NO ANSWERS YET. BX REPORT SHOWS ARTHROPOD INFESTATION REACTION. I ADVISED NEW MATTRESS TO THEM AND WASH SHEETS IN HOT WATER. SHE HAS SPORADIC RARE SPOTS, NONE ACTIVE FOR NOW SKIN DOES NOT HAVE ANY ACUTE INFESTATTION. (3) Fever Current Visit: Yes Status: Acute Plan: NO SOURCE OF INFECTION NO RESP, GI, , NEURO OR DERMAL SYMPTOMS DO TWO CS [facility] CATH. AFTER REMOVING DAWSON. HOLD OFF ON ABX UNTIL CLEAR SOURCE IT MAY FROM POST OP HEMATOMA. STABLE. WILL WATCH DAILY
[2018-03-18 19:25] LABS: Urine Appearance CLEAR; Urine Bilirubin NEGATIVE (NEG); Urine Blood NEGATIVE (NEG); Urine Color YELLOW; Urine Glucose NEGATIVE (NEG); Urine Protein NEGATIVE (NEG)
[2018-03-18 19:45] LABS: Urine Bacteria <20 /HPF (<20); Urine Culture Reflex Order NOT NEEDED; Urine RBC <5 /HPF (NONE SEEN)
[2018-03-19] MEDS: NA CHLORIDE 0.9% 1,000 ML IV SCH ×2 (03:30→12:49)
[2018-03-19 07:04] LABS: BUN Blood Urea Nitrogen 9 mg/dL (6-20); Bicarbonate 24 mEq/L (21-31); Glucose Level 107 mg/dL (65-120); Potassium 3.6 mEq/L (3.6-5.0); Sodium Level 138 mEq/L (135-145)
[2018-03-19 07:16] LABS: Absolute Lymphocytes (CBC) 1.1 K/uL (0.7-4.9); Absolute Monocytes 0.9 K/uL (0.1-1.3); Absolute Neutrophil 6.7 K/uL (1.8-8.0); Basophils % 0.6 % (0-1.3); Eosinophils % 1.1 % (0-4.4); Hematocrit 28.2 % (36.0-45.0); Lymphocytes % 12.9 % (15.3-44.8); MCH 28.5 pg (27.0-35.0); MCV 82.7 fL (80-100); MPV 8.6 fL (7.6-11.3); Monocytes % 9.7 % (3.3-12.3)
[2018-03-19 07:18] LABS: Urine White Blood Cell Casts OK
[2018-03-19 07:19] LABS: Blood Morphology Comment NOT SEEN (NOT SEEN); Platelet Estimate ADEQ
[2018-03-19] MEDS: TRIAMCINOLONE ACETONIDE IH SCH (08:57)
[2018-03-19] MEDS: ENOXAPARIN 30 MG/0.3 ML SQ SCH ×2 (08:58→20:07)
[2018-03-19] MEDS: CARBAMAZEPINE 200 MG TAB PO SCH ×3 (08:59→20:07)
[2018-03-19] MEDS: GABAPENTIN 100 MG CAP PO SCH ×3 (08:59→20:07)
[2018-03-19] MEDS: BISOPROLOL 5 MG TABLET PO SCH (09:00)
[2018-03-19] MEDS: LOSARTAN POTASSIUM 50 MG TABLET PO SCH (09:00)
--- NOTE | 2018-03-19 11:26 | P.DS ---
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 HINKLE FELL ON RIGHT TROCHANTER AFTER GETTING UP. SHE AT TIMES GOES SIDWAYS AFTER SHE GETS UP AND SO HAPPENED TODAY ALSO. SHE HAS SUBCAPITAL FRACTURE. MR. HINKLE HAD FEVER YESTERDAY, SHE HAS NO SIGNS OF INFECTION. FEVER CAN HAPPEN WITH HEMATOMA, POST OP. SHE IS STABLE FOR REHAB. Vital Signs/Physical Exam: Temp Pulse Resp BP Pulse Ox 98.4 F 100 H 18 154/74 H 93 03/19/18 08:00 03/19/18 09:00 03/19/18 08:00 03/19/18 09:00 03/19/18 08:00 Laboratory Data at Discharge: WBC 8.9 K/uL (4.3-10.9) 03/19/18 05:33 Hgb 9.7 g/dL (12.0-15.0) L 03/19/18 05:33 Hct 28.2 % (36.0-45.0) L 03/19/18 05:33 Plt Count 173 K/uL (152-406) 03/19/18 05:33 PT 12.7 SECONDS (9.5-12.5) H 03/14/18 03:28 INR 1.08 03/14/18 03:28 APTT 29.8 SECONDS (24.3-36.9) 03/14/18 03:28 Sodium 138 mEq/L (135-145) 03/19/18 05:33 Potassium 3.6 mEq/L (3.6-5.0) 03/19/18 05:33 BUN 9 mg/dL (6-20) 03/19/18 05:33 Creatinine 0.65 mg/dL (0.44-1.00) 03/19/18 05:33 Glucose 107 mg/dL (65-120) 03/19/18 05:33 Magnesium 1.9 mg/dL (1.8-2.5) 03/14/18 03:28 Total Bilirubin 0.4 mg/dL (0.3-1.2) 03/14/18 03:28 AST 25 IU/L (10-42) 03/14/18 03:28 ALT 18 IU/L (10-60) 03/14/18 03:28 Alkaline Phosphatase 92 IU/L (42-121) 03/14/18 03:28 B-Natriuretic Peptide 90 pg/ml (<=100) 03/14/18 03:28 Home Medications: Bisoprolol Fumarate [Zebeta*] 5 mg PO DAILY 03/14/18 Carbamazepine 100 mg PO TID 03/14/18 Losartan Potassium [Cozaar] 100 mg PO DAILY 03/14/18 Triamcinolone Acetonide [Nasacort] 2 sprays IH DAILY 03/15/18 Enoxaparin Sodium [Lovenox 30 MG INJ*] 30 mg SQ Q12HR #1 syr 03/18/18 Gabapentin [Neurontin*] 100 mg PO TID #1 cap 03/18/18 New Medications: Enoxaparin Sodium [Lovenox 30 MG INJ*] 30 mg SQ Q12HR #1 syr Gabapentin [Neurontin*] 100 mg PO TID #1 cap Followup: Jewel Mendiola MD [Primary Care Provider] - Jb Patel MD [ACTIVE - CAN ADMIT] - 1-2 Weeks (Call to schedule an appointment)
[2018-03-19] MEDS: ACETAMINOPHEN 325 MG TABLET PO PRN ×2 (12:47→20:08)
[2018-03-19] MEDS ORDERED: MAGNESIUM HYDROXIDE 8% 30 ML PO ONE (12:55)
[2018-03-20] MEDS: NA CHLORIDE 0.9% 1,000 ML IV SCH (00:57)
[2018-03-20 06:01] LABS: Absolute Monocytes 0.7 K/uL (0.1-1.3); Absolute Neutrophil 4.7 K/uL (1.8-8.0); Basophils % 0.6 % (0-1.3); Eosinophils % 1.8 % (0-4.4); Hematocrit 25.7 % (36.0-45.0); Lymphocytes % 15.3 % (15.3-44.8); MCV 82.1 fL (80-100); MPV 8.2 fL (7.6-11.3); Monocytes % 11.2 % (3.3-12.3); RBC Red Blood Cell Count 3.13 M/uL (3.86-4.86)
[2018-03-20 08:36] VITALS: O2SAT 94
[2018-03-20] MEDS: TRIAMCINOLONE ACETONIDE IH SCH (08:40)
[2018-03-20] MEDS: ENOXAPARIN 30 MG/0.3 ML SQ SCH (08:45)
[2018-03-20] MEDS: BISOPROLOL 5 MG TABLET PO SCH (08:46)
[2018-03-20] MEDS: GABAPENTIN 100 MG CAP PO SCH (08:46)
[2018-03-20 08:47] VITALS: BP 181/78
[2018-03-20] MEDS: LOSARTAN POTASSIUM 50 MG TABLET PO SCH (08:47)
[2018-03-20] MEDS: CARBAMAZEPINE 200 MG TAB PO SCH (08:47)
[2018-03-20 09:13] VITALS: TEMP 97.9
--- NOTE | 2018-03-20 11:11 | P.DS ---
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 HINKLE FELL ON RIGHT TROCHANTER AFTER GETTING UP. SHE AT TIMES GOES SIDWAYS AFTER SHE GETS UP AND SO HAPPENED TODAY ALSO. SHE HAS SUBCAPITAL FRACTURE. MR. HINKLE HAD FEVER YESTERDAY, SHE HAS NO SIGNS OF INFECTION. FEVER CAN HAPPEN WITH HEMATOMA, POST OP. SHE IS STABLE FOR REHAB. DC DELAYED ONE DAY REHAB CAN' ACCEPT PATIENTS WHEN THE REHAB DOCTOR IS NOT ABLE TO SEE PATIENT WITHIN 24 HOURS. MEDIALLY STABLE. Vital Signs/Physical Exam: Temp Pulse Resp BP Pulse Ox 97.9 F 99 H 20 181/78 H 93 03/20/18 08:00 03/20/18 08:46 03/20/18 08:00 03/20/18 08:46 03/20/18 08:00 Laboratory Data at Discharge: WBC 6.6 K/uL (4.3-10.9) D 03/20/18 05:16 Hgb 9.1 g/dL (12.0-15.0) L 03/20/18 05:16 Hct 25.7 % (36.0-45.0) L 03/20/18 05:16 Plt Count 193 K/uL (152-406) 03/20/18 05:16 PT 12.7 SECONDS (9.5-12.5) H 03/14/18 03:28 INR 1.08 03/14/18 03:28 APTT 29.8 SECONDS (24.3-36.9) 03/14/18 03:28 Sodium 138 mEq/L (135-145) 03/19/18 05:33 Potassium 3.6 mEq/L (3.6-5.0) 03/19/18 05:33 BUN 9 mg/dL (6-20) 03/19/18 05:33 Creatinine 0.65 mg/dL (0.44-1.00) 03/19/18 05:33 Glucose 107 mg/dL (65-120) 03/19/18 05:33 Magnesium 1.9 mg/dL (1.8-2.5) 03/14/18 03:28 Total Bilirubin 0.4 mg/dL (0.3-1.2) 03/14/18 03:28 AST 25 IU/L (10-42) 03/14/18 03:28 ALT 18 IU/L (10-60) 03/14/18 03:28 Alkaline Phosphatase 92 IU/L (42-121) 03/14/18 03:28 B-Natriuretic Peptide 90 pg/ml (<=100) 03/14/18 03:28 Home Medications: Bisoprolol Fumarate [Zebeta*] 5 mg PO DAILY 03/14/18 Carbamazepine 100 mg PO TID 03/14/18 Losartan Potassium [Cozaar] 100 mg PO DAILY 03/14/18 Triamcinolone Acetonide [Nasacort] 2 sprays IH DAILY 03/15/18 Enoxaparin Sodium [Lovenox 30 MG INJ*] 30 mg SQ Q12HR #1 syr 03/18/18 Gabapentin [Neurontin*] 100 mg PO TID #1 cap 03/18/18 New Medications: Enoxaparin Sodium [Lovenox 30 MG INJ*] 30 mg SQ Q12HR #1 syr Gabapentin [Neurontin*] 100 mg PO TID #1 cap Followup: Jewel Mendiola MD [Primary Care Provider] - Jb Patel MD [ACTIVE - CAN ADMIT] - 1-2 Weeks (Call to schedule an appointment)
== END 2018-03-20 11:40 | DRG 470 ==
LOC: ER 01:33 → ERHOLD 05:30 → 4TH 05:38
PROVIDERS: ADMIT Internal Medicine; ATTEND Internal Medicine
PROC: 0SRR0J9 Replacement of Right Hip Joint, Femoral Surface with Synthetic Substitute, Cemented, Open Approach (ICD-10-PCS; principal; 2018-03-16 13:00)
DX: S72.001A Fracture of unspecified part of neck of right femur, initial encounter for closed fracture (principal); I10 Essential (primary) hypertension; G50.0 Trigeminal neuralgia; L98.492 Non-pressure chronic ulcer of skin of other sites with fat layer exposed; W19.XXXA Unspecified fall, initial encounter
CPT/HCPCS: 36415; 71045; 72170; 80048; 80076; 81001; 82550; 82553; 83735; 83880; 84484; 85025; 85610; 85730; 87040; 87086; 87088; 88305; 88311; 96361; 96374; 96375; 97163; 99285; J0690; J1650; J2175; J2270; J2550; J2710; J3010; J7030

== ENCOUNTER 2018-03-18 12:53 | Inpatient (IN) | payer OTHER ==
--- NOTE | 2018-03-18 15:05 | R.PREADM ---
SCREENING DATE AND TIME 03/18/2018 13:22 (CDT) ANTICIPATED REHAB ADMISSION DATE 03/20/[address] [facility] [place], [place] REFERRAL DATE AND TIME 03/18/2018 13:22 (CDT) ACUTE ADMIT DATE 03/14/2018 Previous Rehabilitation(s): No. REFERRING PHYSICIAN Jewel Mendiola REHAB FACILITY [facility] CLINICAL LIAISON Andre Parikh PHYSICIAN REVIEWER Dr. Joao Robles M.D. [facility] [id number] [facility] [id number] NAME DOC HINKLE ADDRESS [address] [facility] [id number] DATE OF 1945 AGE 72 SSN# [id number] GENDER female MARITAL STATUS RACE white ADMIT FROM 02 - [facility] PRE-HOSPITAL LIVING SETTING 01 - Home (private home/apt. board/care, assisted living, shelter, transitional living) HOME TYPE AND DETAILS Type of home: single family house # of levels in the residence: 1 # of steps within the residence: 0 # of steps to enter the residence: 1 PRE-HOSPITAL LIVING WITH Family/Relatives FAMILY SUPPORT Yes PRIMARY FAMILY CONTACT NAME NITESH HINKLE PRIMARY FAMILY CONTACT PHONE PHONE PRIMARY FAMILY CONTACT ON ADM.? no IS PRIMARY FAMILY CONTACT AUTH. REP.? no 1ST EMERGENCY CONTACT NIETSH HINKLE 1ST CONTACT PHONE PHONE 1ST CONTACT ON ADM. no IS 1ST CONTACT AUTH. REP.? no PHONE 2ND CONTACT ON ADM.? no PATIENT EMPLOYMENT STATUS Retired (for age) PATIENT EMPLOYER No Employer PAYOR INFORMATION: 1ST PAYOR NAME MEDICARE 1ST PAYOR PHONE [phone] 1ST PAYOR INJURY/ILLNESS DUE TO ACCIDENT? No ANOTHER DEMOCRAT RESPONSIBLE? No PRIMARY REHAB/ACUTE DIAGNOSIS: RIGHT HIP FEMORAL NECK FRACTURE ONSET DATE 03/14/2018 REHAB IMPAIRMENT CATEGORY (ADRIAN): 07 Fracture of LE (FracLE) does NOT meet 60% rule AFFECTED EXTREMITIES: RLE PRIMARY DIAGNOSIS-RELATED SURGERIES: RIGHT HIP HEMIARTHROPLASTY on 03/16/2018 COMORBID REHAB/ACUTE DIAGNOSES: - N/A HTN TRIGEMINAL NEURALGIA SKIN CANCER SUMMARY OF ACUTE HOSPITALIZATION: Pt. is a 72 yo Right-handed white female. Her impairment category is Orthopaedic Disorders 08 - Femur (Shaft) Fracture (08.2). Pre-morbidly, Pt. was independent/mod-I in Social Cognition, Self-Care, Locomotion, Sphincter Control , Transfers Control, and Communication; and she had good Sphincter Control. Currently, she has deficits of Balance, Locomotion, Endurance, Safety Awareness, Transfers Control, a nd Self-Care. Pt. is now referred to [facility] for acute in-patient rehabilitation in order to maximize patient's functional independence in activities of daily living, strength, ROM, and mobi lity. Patient has realistic goal of being discharged at assistance level 6-Sherrie to reside at Home with Fam syed/Relatives. PAST MEDICAL HISTORY HTN SKIN CANCER TRIGEMINAL NEURALGIA PAST SURGICAL HISTORY: BRAIN SURGERY CAESARIAN RADIAL RHIESOTOMY RIGHT BREAST BENIGN CYST REMOVAL MEDICATION ALLERGIES: GUAIFENESIN PENICILLIN Sulfamethoxazole TRIMETHOPRIM ENVIRONMENTAL ALLERGIES: None Known - Substance Allergies None Known - Other Allergies None Known CODE STATUS: Full code WEIGHT/HEIGHT/BMI: WEIGHT 190 lbs HEIGHT 5' 4" BMI 32.6 DIET: - Diet Type Regular - Diet - Solid Texture Regular - Diet - Liquid Texture Regular - Tube Feed N/A SKIN DIAGRAM: Incision on Other; extent - small; stage - NS(Not Stageable). Treatment - Per Physician's Orders. REVIEW OF SYSTEMS: - Gen Alert and awake Lying in bed No apparent distress Oriented to: person, time, and place - Vital Signs Temperature: 98.2 F SBP/DBP: 119/67 Pulse: 105 Resp: 18 Vital signs stable, afebrile - CVS RRR VITAL SIGNS Temperature: 98.2 F SBP/DBP: 119/67 Pulse: 105 Resp: 18 Vital signs stable, afebrile CURRENT SPHINCTER CONTROL: Pre-hospital bladder status: continent # of bladder accidents in the last 7 days prior to screenin Pre-hospital bowel status: continent # of bowel accidents in the last 7 days prior to screenin Last Bowel Movement Date: DETAILED CURRENT FUNCTIONAL STATUS: - Bladder accident frequency: Ind - No accidents in the past 7 days - Bowel accident frequency: Ind - No accidents in the past 7 days - Walking score based on distance walked: 1(<=50ft) - Wheelchair score based on distance traveled: 0(N/A) FUNCTIONAL STATUS: - Self-Care A. Eating Ind Ind B. Grooming Ind Sherrie C. Bathing Ind Dot D. Dressing - Upper Ind Dot E. Dressing - Lower Ind Dot F. Toileting Ind Dot - Sphincter Control G: Bladder control Ind Ind H: Bowel control Ind Ind - Transfers Control I. Bed/Chair/Wheelchair Ind maxA J. Toilet Ind maxA K. Tub/Shower Ind ADNO - Locomotion L. Walk/Wheelchair (C) Ind maxA L. Walk/Wheelchair (W) Ind maxA M. Stairs Ind ADNO - Communication N. Comprehension (B) Ind Ind O. Expression (B) Ind Ind - Social Cognition P. Social Interaction Ind Ind Q. Problem Solving Ind Ind R. Memory Ind Ind - Endurance Fair - Balance Fair - Safety Awareness Fair CURRENT FUNC. DEFICITS: Balance, Locomotion, Endurance, Safety Awareness, Transfers Control, and Self-Care THERAPY NOTES FROM ACUTE CARE: Attached. SPECIAL NEEDS: - Safety Concerns Skin breakdown precautions needed due to skin breakdown risk PRECAUTIONS: - Weight Bearing Precaution WBAT right LE - Fall Precaution Bed and chair alarm PATIENT NEEDS ACTIVE AND ONGOING THERAPEUTIC INTERVENTION OF MULTIPLE THERAPY DISCIPLINES, INCLUDING: - Occupational Therapy Evaluate and Treat. - Physical Therapy Evaluate and Treat. PATIENT NEEDS CLOSE MEDICAL SUPERVISION BY A REHABILITATION PHYSICIAN FOR: Bowel and Bladder Management Coordination of Treatment Team Medical and Co-Morbidity Management Wound Care Pain Management DVT Management PATIENT REQUIRES 24X7 REHAB NURSING FOR MEDICAL AND FUNCTIONAL MGT. OF THE FOLLOWING DEFICITS: ADL's Ambulation Bowel and Bladder Management Communication Disease Management Medication Management Patient/Family Education Providing Safe Environment Skin Integrity Transfers Pain Management PATIENT REQUIRES INTENSIVE, COORDINATED INTERDISCIPLINARY APPROACH TO REHAB: Arranging Home Equipment/Services Discharge Planning Family Intervention/Training Copper Plater/Case Management PATIENT REHAB POTENTIAL: Expected level of measurable improvement will be of a practical value to patient's functional capacit y or adaptations to impairments Has a viable Discharge Plan Medically appropriate; condition is sufficiently stable to participate in intensive rehab program Patient is able and expected to receive 3 hours of individualized therapy daily on at least 5 of ever y 7 days Patient's prognosis for significant practical improvement within a reasonable period of time appears Good DISCHARGE PLAN: - Estimated Length of Stay (days) 14. - Consensus on plan Discharge plan has been discussed with primary caregiver. Patient/Family is in agreement with the kalani n. Primary caregiver is in agreement with the plan. - Patient/Family Goals Return home with assistance. - Planned Living Setting Upon Discharge Home, to live with Family/Relatives. RECOMMENDED CARE LEVEL: IRF RECOMMENDATION DETAILS: Recommended Admission to Comprehensive Rehabilitation Program to Increase Functional [place] SCREENER'S COMPLETENESS CONFIRMATION: - Screening Confirmation The patient data collection on this preadmission screening form is finished PHYSICIANS REVIEW AND ADMISSION DETERMINATION Admit - Based on my review of the Pre-Admission Screening results, in my medical judgment and experie nce, I concur with the findings and recommend admission to [facility], as this patient requires an IRF level of care. SIGNATURE PANEL: Clinical Liaison - [electronically] signed by Andre Parikh on 03/18/2018 at 13:36 (CDT) Physician Reviewer - [electronically] signed by Dr. Joao Robles M.D. on 03/18/2018 at 14:05 (CDT )
[2018-03-20 11:36] VITALS: BMI 32.5
[2018-03-20] MEDS ORDERED: DOCUSATE NA/SENNA CONC 1 TAB PO PRN (12:25)
[2018-03-20] MEDS ORDERED: BISOPROLOL 5 MG TABLET PO SCH (13:15)
[2018-03-20] MEDS: ACETAMINOPHEN 500 MG TAB PO PRN (13:36)
[2018-03-20] MEDS: CARBAMAZEPINE 200 MG TAB PO SCH ×2 (13:36→20:52)
[2018-03-20] MEDS: FE SULF/FA/VIT B COMP & C TAB PO SCH (13:36)
[2018-03-20] MEDS: GABAPENTIN 100 MG CAP PO SCH ×2 (13:36→20:52)
[2018-03-20] MEDS: FERROUS SULFATE 325 MG TAB PO SCH (13:36)
[2018-03-20] MEDS ORDERED: LOSARTAN POTASSIUM 50 MG TABLET PO SCH (14:00)
[2018-03-20] MEDS: DOCUSATE NA 100 MG CAP PO SCH (14:26)
--- NOTE | 2018-03-20 16:26 | FAST ---
SHIFT START DATE/TIME: 03/20/2018 07:00 (CDT) SHIFT END DATE/TIME: 03/20/2018 19:00 (CDT) NAME DOC HINKLE DATE OF : 1945 DATE OF ADMISSION: 03/20/2018 11:23 (CDT) PHONE: AGE: 72 [facility]# [id number] GENDER: Female ENCOUNTER PHYSICIAN: Dr. Joao Robles M.D. ADMISSION DIAGNOSIS: - Orthopaedic Disorders 08 - Femur (Shaft) Fracture (08.2) RIGHT HIP FEMORAL NECK FRACTURE. EATING: EATING - STEP 1: Does the patient require assistance when eating? Yes. EATING - STEP 2: Does the patient require the assistance of a helper? No, patient only requires an assistive device, O R s/he takes more than reasonable time to eat, OR there is a safety concern, OR s/he requires modifie d food consistency EATING - SCORE: 6-CADEN GROOMING: Activity did not occur on this shift GROOMING - SCORE: 0-UNK BATHING: Activity did not occur on this shift BATHING - SCORE: 0-UNK DRESSING - UPPER BODY: Activity did not occur on this shift ARTICLES SCORE Total number of steps: 0 DRESSING - UPPER BODY - SCORE: 0-UNK DRESSING - LOWER BODY: Activity did not occur on this shift ARTICLES SCORE Total number of steps: 0 DRESSING - LOWER BODY - SCORE: 0-UNK TOILETING: TOILETING - STEP 1: Does the patient require assistance with toileting? Yes. TOILETING - STEP 2: Does the patient require the assistance of a helper? Yes. TOILETING - STEP 3: How much assistance does the patient require from the helper? Hands-on assistance from the helper TOILETING - STEP 4: Of the 3 tasks: 1) Adjusting clothing prior to use, 2) Cleansing of perineal area, 3) Adjusting clot ruperto after use; How many tasks does the patient perform WITHOUT assistance of the helper? One task TOILETING - SCORE: 2-MAX BLADDER MANAGEMENT: BLADDER MANAGEMENT - STEP 1: Does the patient control the bladder completely and intentionally without equipment or devices or med ications, and is always continent? Yes. BLADDER MANAGEMENT - SCORE: 7-IND BOWEL MANAGEMENT: Activity did not occur on this shift BOWEL MANAGEMENT - SCORE: 7-IND TRANSFERS: BED, CHAIR, WHEELCHAIR: TRANSFERS: BED, CHAIR, WHEELCHAIR - STEP 1: Does the patient require assistance with bed, chair, or wheelchair transfers? Yes. TRANSFERS: BED, CHAIR, WHEELCHAIR - STEP 2: Does the patient require the assistance of a helper? Yes. TRANSFERS: BED, CHAIR, WHEELCHAIR - STEP 3: How much assistance does the patient require from the helper? Lifting of the legs TRANSFERS: BED, CHAIR, WHEELCHAIR - STEP 4: How many legs does the patient require the helper to lift? one leg TRANSFERS: BED, CHAIR, WHEELCHAIR - SCORE: 4-MIN TRANSFERS: TOILET: TRANSFERS: TOILET - STEP 1: Does the patient require assistance with toilet transfers? Yes. TRANSFERS: TOILET - STEP 2: Does the patient require the assistance of a helper? Yes. TRANSFERS: TOILET - STEP 3: How much assistance does the patient require from the helper? Patient performs half or more of the tr ansferring tasks TRANSFERS: TOILET - STEP 4: Does the patient need only incidental help such as contact guard or steadying during toilet transfer? No. Patient needs more than incidental help TRANSFERS: TOILET - SCORE: 3-MOD TRANSFERS: SHOWER: Activity did not occur on this shift TRANSFERS: SHOWER - SCORE: 0-UNK TRANSFERS: TUB: Activity did not occur on this shift TRANSFERS: TUB - SCORE: 0-UNK LOCOMOTION: WALK: Activity did not occur on this shift LOCOMOTION: WALK - SCORE: 0-UNK LOCOMOTION: WHEELCHAIR: Activity did not occur on this shift LOCOMOTION: WHEELCHAIR - SCORE: 0-UNK COMPREHENSION: COMPREHENSION - SCORE: 0-UNK EXPRESSION EXPRESSION - SCORE: 0-UNK SOCIAL INTERACTION: SOCIAL INTERACTION - SCORE: 0-UNK PROBLEM SOLVING: PROBLEM SOLVING - SCORE: 0-UNK MEMORY: MEMORY - SCORE: 0-UNK SIGNATURE PANEL: The following modified sections: Eating - Score, Grooming - Score, Bathing - Score, Dressing - Upper Body - Score, Dressing - Lower Body - Score, Toileting - Score, Bladder Management - Score, Bowel Man agement - Score, Transfers: Bed, Chair, Wheelchair - Score, Transfers: Toilet - Score, Transfers: Coby wer - Score, Transfers: Tub - Score, Locomotion: Walk - Score, Locomotion: Wheelchair - Score, Compre hension - Score, Expression - Score, Social Interaction - Score, Problem Solving - Score, Memory - Sc ore were [electronically] signed by Tigre Wilson on WedMar 20 2018 15:26:29 GMT-0500 (Central Daylight Time)
[2018-03-20 20:39] LABS: Urine Appearance CLEAR; Urine Bilirubin NEGATIVE (NEG); Urine Blood NEGATIVE (NEG); Urine Color YELLOW; Urine Glucose NEGATIVE (NEG); Urine Protein NEGATIVE (NEG); Urine Specific Gravity 1.015 (1.005-1.030); Urine pH 7.5 (5.0-7.0)
[2018-03-20] MEDS: PROMOD 30 ML DOSE PO SCH (20:52)
[2018-03-20 20:54] LABS: Urine Bacteria 20-50 /HPF (<20); Urine Culture Reflex Order NOT NEEDED; Urine RBC NONE SEEN /HPF (NONE SEEN)
--- NOTE | 2018-03-21 03:06 | FAST ---
SHIFT START DATE/TIME: 03/20/2018 19:00 (CDT) SHIFT END DATE/TIME: 03/21/2018 07:00 (CDT) NAME DOC HINKLE DATE OF : 1945 DATE OF ADMISSION: 03/20/2018 11:23 (CDT) PHONE: AGE: 72 N# [id number] GENDER: Female ENCOUNTER PHYSICIAN: Dr. Joao Robles M.D. ADMISSION DIAGNOSIS: - Orthopaedic Disorders 08 - Femur (Shaft) Fracture (08.2) RIGHT HIP FEMORAL NECK FRACTURE. EATING: Activity did not occur on this shift EATING - SCORE: 0-UNK GROOMING: Activity did not occur on this shift GROOMING - SCORE: 0-UNK BATHING: Activity did not occur on this shift BATHING - SCORE: 0-UNK DRESSING - UPPER BODY: Activity did not occur on this shift ARTICLES SCORE Total number of steps: 0 DRESSING - UPPER BODY - SCORE: 0-UNK DRESSING - LOWER BODY: Activity did not occur on this shift ARTICLES SCORE Total number of steps: 0 DRESSING - LOWER BODY - SCORE: 0-UNK TOILETING: Activity did not occur on this shift TOILETING - SCORE: 0-UNK BLADDER MANAGEMENT: [place] removes incontinent device (Depends, pull ups, etc.); cleans the patient after accident / inco ntinent episode; and, applies new incontinent device. BLADDER MANAGEMENT - SCORE: 1-DEP BOWEL MANAGEMENT: Activity did not occur on this shift BOWEL MANAGEMENT - SCORE: 7-IND TRANSFERS: BED, CHAIR, WHEELCHAIR: TRANSFERS: BED, CHAIR, WHEELCHAIR - STEP 1: Does the patient require assistance with bed, chair, or wheelchair transfers? Yes. TRANSFERS: BED, CHAIR, WHEELCHAIR - STEP 2: Does the patient require the assistance of a helper? Yes. TRANSFERS: BED, CHAIR, WHEELCHAIR - STEP 3: How much assistance does the patient require from the helper? Lifting of the legs TRANSFERS: BED, CHAIR, WHEELCHAIR - STEP 4: How many legs does the patient require the helper to lift? both legs TRANSFERS: BED, CHAIR, WHEELCHAIR - SCORE: 3-MOD TRANSFERS: TOILET: TRANSFERS: TOILET - STEP 1: Does the patient require assistance with toilet transfers? Yes. TRANSFERS: TOILET - STEP 2: Does the patient require the assistance of a helper? Yes. TRANSFERS: TOILET - STEP 3: How much assistance does the patient require from the helper? Patient performs half or more of the tr ansferring tasks TRANSFERS: TOILET - STEP 4: Does the patient need only incidental help such as contact guard or steadying during toilet transfer? Yes. TRANSFERS: TOILET - SCORE: 4-MIN TRANSFERS: SHOWER: Activity did not occur on this shift TRANSFERS: SHOWER - SCORE: 0-UNK TRANSFERS: TUB: Activity did not occur on this shift TRANSFERS: TUB - SCORE: 0-UNK LOCOMOTION: WALK: Activity did not occur on this shift LOCOMOTION: WALK - SCORE: 0-UNK LOCOMOTION: WHEELCHAIR: Activity did not occur on this shift LOCOMOTION: WHEELCHAIR - SCORE: 0-UNK COMPREHENSION: COMPREHENSION - STEP 1: Does the patient require help to understand complex and abstract ideas (such as current events, finan neal, discharge planning, medical issues, relationships, etc)? No. COMPREHENSION - STEP 2: Does the patient need extra time, require an assistive device (such as glasses, hearing aids, or an a ugmentative communication system), OR does s/he have mild difficulty expressing complex and abstract ideas (including mild dysarthria or mild word-finding problems)? Yes. COMPREHENSION - SCORE: 6-CADEN EXPRESSION EXPRESSION - STEP 1: Does the patient require help expressing complex and abstract ideas (such as current events, finances , discharge planning, medical issues, relationships, etc)? No. EXPRESSION - STEP 2: Does the patient need extra time, require an assistive device (such as augmentive communication syste m or a communication board), OR does s/he have mild difficulty expressing complex and abstract ideas (including mild dysarthria or mild word-find problems)? No. EXPRESSION - SCORE: 7-IND SOCIAL INTERACTION: SOCIAL INTERACTION - STEP 1: Does the patient require a helper to interact with others in social and therapeutic situations? No. SOCIAL INTERACTION - STEP 2: Does the patient need extra time in social situations, OR does s/he interact with staff, other patien ts, and family members ONLY in structured environments, OR does s/he require medication for social in teraction? No. SOCIAL INTERACTION - SCORE: 7-IND PROBLEM SOLVING: PROBLEM SOLVING - STEP 1: Does the patient need help to solve complex problems such as managing a checking account or confronti ng interpersonal problems? No. PROBLEM SOLVING - STEP 2: Does the patient require extra time to make decisions or solve problems, OR does s/he have slight dif ficulty reading, initiating, or self-correcting in unfamiliar situations? No. PROBLEM SOLVING - SCORE: 7-IND MEMORY: MEMORY - STEP 1: Does the patient need help to remember frequently encountered people, daily routines, and executing r equests? No. MEMORY - STEP 2: Does the patient have slight difficulty recognizing frequently encountered people, daily routines, or executing requests without the need for repetition or using self-initiated or environmental cues to remember? No. MEMORY - SCORE: 7-IND SIGNATURE PANEL: The following modified sections: Eating - Score, Grooming - Score, Bathing - Score, Dressing - Upper Body - Score, Dressing - Lower Body - Score, Toileting - Score, Bladder Management - Score, Bowel Man agement - Score, Transfers: Bed, Chair, Wheelchair - Score, Transfers: Toilet - Score, Transfers: Coby wer - Score, Transfers: Tub - Score, Locomotion: Walk - Score, Locomotion: Wheelchair - Score, Compre hension - Score, Expression - Score, Social Interaction - Score, Problem Solving - Score, Memory - Sc ore were [electronically] signed by Teresa Bo RN on WedMar 21 2018 02:07:05 T-0500 ([facility] Time)
[2018-03-21 05:49] LABS: Absolute Lymphocytes (CBC) 1.3 K/uL (0.7-4.9); Absolute Monocytes 0.8 K/uL (0.1-1.3); Absolute Neutrophil 4.5 K/uL (1.8-8.0); Basophils % 0.9 % (0-1.3); Eosinophils % 2.1 % (0-4.4); Hematocrit 25.9 % (36.0-45.0); Lymphocytes % 18.6 % (15.3-44.8); MCH 28.3 pg (27.0-35.0); MCV 82.7 fL (80-100); MPV 7.9 fL (7.6-11.3); Monocytes % 11.6 % (3.3-12.3); RBC Red Blood Cell Count 3.13 M/uL (3.86-4.86)
[2018-03-21 06:42] LABS: Albumin 2.4 g/dL (3.2-5.5); BUN Blood Urea Nitrogen 12 mg/dL (6-20); Bicarbonate 25 mEq/L (21-31); Glucose Level 112 mg/dL (65-120); Potassium 3.3 mEq/L (3.6-5.0); Prealbumin 8.9 mg/dl (18-38); Sodium Level 139 mEq/L (135-145)
[2018-03-21] MEDS: PROMOD 30 ML DOSE PO SCH ×2 (08:00→20:56)
[2018-03-21] MEDS: FLUTICASONE 50MCG NASAL SPRAY NAS SCH (08:00)
[2018-03-21] MEDS ORDERED: ENOXAPARIN 30 MG/0.3 ML SQ SCH (08:00)
[2018-03-21] MEDS: TRIAMCINOLONE ACETONIDE IH SCH (08:00)
[2018-03-21] MEDS: ENOXAPARIN 30 MG/0.3 ML SQ SCH (08:41)
[2018-03-21] MEDS: DOCUSATE NA 100 MG CAP PO SCH (08:42)
[2018-03-21] MEDS: GABAPENTIN 100 MG CAP PO SCH ×3 (08:42→20:56)
[2018-03-21] MEDS: FERROUS SULFATE 325 MG TAB PO SCH (08:42)
[2018-03-21] MEDS: CARBAMAZEPINE 200 MG TAB PO SCH ×3 (08:42→20:56)
[2018-03-21] MEDS: FE SULF/FA/VIT B COMP & C TAB PO SCH (08:42)
[2018-03-21] MEDS: LOSARTAN POTASSIUM 50 MG TABLET PO SCH (08:43)
[2018-03-21] MEDS: BISOPROLOL 5 MG TABLET PO SCH (08:43)
[2018-03-21] MEDS: ACETAMINOPHEN 500 MG TAB PO PRN ×2 (09:35→14:43)
--- NOTE | 2018-03-21 15:53 | FAST ---
SHIFT START DATE/TIME: 03/21/2018 07:00 (CDT) SHIFT END DATE/TIME: 03/21/2018 19:00 (CDT) NAME DOC HINKLE DATE OF : 1945 DATE OF ADMISSION: 03/20/2018 11:23 (CDT) PHONE: AGE: 72 [facility]# [id number] GENDER: Female ENCOUNTER PHYSICIAN: Dr. Joao Robles M.D. ADMISSION DIAGNOSIS: - Orthopaedic Disorders 08 - Femur (Shaft) Fracture (08.2) RIGHT HIP FEMORAL NECK FRACTURE. EATING: EATING - STEP 1: Does the patient require assistance when eating? Yes. EATING - STEP 2: Does the patient require the assistance of a helper? Yes. EATING - STEP 3: Does the patient perform half or more of the eating tasks? Yes. EATING - STEP 4: Does the patient need only supervision, cuing, coaxing OR help to apply an orthosis OR help to cut fo od, open containers, pour liquids, or butter bread? Yes. EATING - SCORE: 5-SUP GROOMING: Comb/brush hair Oral care Wash, rinse, and dry face Wash, rinse, and dry hands GROOMING - STEP 1: Does the patient require assistance when grooming? Yes. GROOMING - STEP 2: Does the patient require the assistance of a helper? Yes. GROOMING - STEP 3: How much assistance does the patient require from the helper? Only prior equipment preparation/set up from the helper GROOMING - SCORE: 5-SUP BATHING: Activity did not occur on this shift BATHING - SCORE: 0-UNK DRESSING - UPPER BODY: T-shirt/pullover shirt (four steps) ARTICLES SCORE Total number of steps: 4 DRESSING - UPPER BODY - STEP 1: Does the patient require help when dressing above the waist? Yes. DRESSING - UPPER BODY - STEP 2: Does the patient require the assistance of a helper? Yes. DRESSING - UPPER BODY - STEP 3: Does the helper touch the patient while dressing? No. DRESSING - UPPER BODY - SCORE: 5-SUP DRESSING - LOWER BODY: Elastic waist pants (three steps) Slip-on shoe - Left foot (one step) Slip-on shoe - Right foot (one step) ARTICLES SCORE Total number of steps: 5 DRESSING - LOWER BODY - STEP 1: Does the patient require help when dressing below the waist? Yes. DRESSING - LOWER BODY - STEP 2: Does the patient require the assistance of a helper? Yes. DRESSING - LOWER BODY - STEP 3: Does the helper touch the patient while dressing? No. DRESSING - LOWER BODY - SCORE: 5-SUP TOILETING: TOILETING - STEP 1: Does the patient require assistance with toileting? Yes. TOILETING - STEP 2: Does the patient require the assistance of a helper? Yes. TOILETING - STEP 3: How much assistance does the patient require from the helper? Only supervision TOILETING - SCORE: 5-SUP BLADDER MANAGEMENT: BLADDER MANAGEMENT - STEP 1: Does the patient control the bladder completely and intentionally without equipment or devices or med ications, and is always continent? No. BLADDER MANAGEMENT - STEP 2: Does the patient require the assistance of a helper? Yes. BLADDER MANAGEMENT - STEP 3: How much assistance does the patient require from the helper? Only supervision, stand-by, cuing, or c oaxing BLADDER MANAGEMENT - SCORE: 5-SUP BLADDER MANAGEMENT - FREQUENCY OF ACCIDENTS: BLADDER MANAGEMENT(FA) - STEP 1: How many accidents has the patient had during the current shift? 0 BOWEL MANAGEMENT: Activity did not occur on this shift BOWEL MANAGEMENT - SCORE: 7-IND BOWEL MANAGEMENT - FREQUENCY OF ACCIDENTS: BOWEL MANAGEMENT(FA) - STEP 1: How many accidents has the patient had during the current shift? 0 TRANSFERS: BED, CHAIR, WHEELCHAIR: TRANSFERS: BED, CHAIR, WHEELCHAIR - STEP 1: Does the patient require assistance with bed, chair, or wheelchair transfers? Yes. TRANSFERS: BED, CHAIR, WHEELCHAIR - STEP 2: Does the patient require the assistance of a helper? Yes. TRANSFERS: BED, CHAIR, WHEELCHAIR - STEP 3: How much assistance does the patient require from the helper? Lifting of the legs TRANSFERS: BED, CHAIR, WHEELCHAIR - STEP 4: How many legs does the patient require the helper to lift? both legs TRANSFERS: BED, CHAIR, WHEELCHAIR - SCORE: 3-MOD TRANSFERS: TOILET: TRANSFERS: TOILET - STEP 1: Does the patient require assistance with toilet transfers? Yes. TRANSFERS: TOILET - STEP 2: Does the patient require the assistance of a helper? No. Patient only requires an assistive device cunningham ch as a grab bar or special seat, OR s/he takes more than reasonable time to perform toilet transfers , OR there is a safety concern when s/he performs toilet transfers. TRANSFERS: TOILET - SCORE: 6-CADEN TRANSFERS: SHOWER: Activity did not occur on this shift TRANSFERS: SHOWER - SCORE: 0-UNK TRANSFERS: TUB: Activity did not occur on this shift TRANSFERS: TUB - SCORE: 0-UNK LOCOMOTION: WALK: Activity did not occur on this shift LOCOMOTION: WALK - SCORE: 0-UNK LOCOMOTION: WHEELCHAIR: LOCOMOTION: WHEELCHAIR - STEP 1: Does the patient need help to go 150 feet in a wheelchair? Yes. LOCOMOTION: WHEELCHAIR - STEP 2: How much assistance does the patient need from the helper? Only supervision, cuing, or coaxing LOCOMOTION: WHEELCHAIR - SCORE: 5-SUP COMPREHENSION: COMPREHENSION: TYPE: Both COMPREHENSION - STEP 1: Does the patient require help to understand complex and abstract ideas (such as current events, finan neal, discharge planning, medical issues, relationships, etc)? No. COMPREHENSION - STEP 2: Does the patient need extra time, require an assistive device (such as glasses, hearing aids, or an a ugmentative communication system), OR does s/he have mild difficulty expressing complex and abstract ideas (including mild dysarthria or mild word-finding problems)? Yes. COMPREHENSION - SCORE: 6-CADEN EXPRESSION EXPRESSION: TYPE: Both EXPRESSION - STEP 1: Does the patient require help expressing complex and abstract ideas (such as current events, finances , discharge planning, medical issues, relationships, etc)? Yes. EXPRESSION - STEP 2: Does the patient require help to express basic necessities or ideas (such as hunger, thirst, sleep, s afety, daily schedule, room location, or discomfort) half or more of the time? No. EXPRESSION - STEP 3: How often does the patient need help to express directions and conversation about basic needs? Less t silvestre 10% of the time EXPRESSION - SCORE: 5-SUP SOCIAL INTERACTION: SOCIAL INTERACTION - STEP 1: Does the patient require a helper to interact with others in social and therapeutic situations? No. SOCIAL INTERACTION - STEP 2: Does the patient need extra time in social situations, OR does s/he interact with staff, other patien ts, and family members ONLY in structured environments, OR does s/he require medication for social in teraction? No. SOCIAL INTERACTION - SCORE: 7-IND PROBLEM SOLVING: PROBLEM SOLVING - STEP 1: Does the patient need help to solve complex problems such as managing a checking account or confronti ng interpersonal problems? Yes. PROBLEM SOLVING - STEP 2: Does the patient solve basic routine problems half or more of the time? Yes. PROBLEM SOLVING - STEP 3: How often does the patient need help to solve basic routine problems? Less than 10% of the time PROBLEM SOLVING - SCORE: 5-SUP MEMORY: MEMORY - STEP 1: Does the patient need help to remember frequently encountered people, daily routines, and executing r equests? No. MEMORY - STEP 2: Does the patient have slight difficulty recognizing frequently encountered people, daily routines, or executing requests without the need for repetition or using self-initiated or environmental cues to remember? Yes. MEMORY - SCORE: 6-CADEN SIGNATURE PANEL: The following modified sections: Eating - Score, Grooming - Score, Bathing - Score, Dressing - Upper Body - Score, Dressing - Lower Body - Score, Toileting - Score, Bladder Management - Score, Bowel Man agement - Score, Transfers: Bed, Chair, Wheelchair - Score, Transfers: Toilet - Score, Transfers: Coby wer - Score, Transfers: Tub - Score, Locomotion: Walk - Score, Locomotion: Wheelchair - Score, Compre hension - Score, Expression - Score, Social Interaction - Score, Problem Solving - Score, Memory - Sc ore were [electronically] signed by Cesia Dumont C.N.A. on WedMar 21 2018 14:53:47 T-0500 ([place] Daylight Time)
--- NOTE | 2018-03-21 16:42 | FAST ---
ENCOUNTER DATE AND TIME: 03/21/2018 08:00 (CDT) NAME DOC HINKLE DATE OF : 1945 DATE OF ADMISSION: 03/20/2018 11:23 (CDT) PHONE: AGE: 72 N# [id number] GENDER: Female ENCOUNTER PHYSICIAN: Dr. Joao Robles M.D. ADMISSION DIAGNOSIS: - Orthopaedic Disorders 08 - Femur (Shaft) Fracture (08.2) RIGHT HIP FEMORAL NECK FRACTURE. EATING: Activity did not occur on this shift EATING - SCORE: 0-UNK GROOMING: Activity did not occur on this shift GROOMING - SCORE: 0-UNK BATHING: Activity did not occur on this shift BATHING - SCORE: 0-UNK DRESSING - UPPER BODY: Activity did not occur on this shift Patient is not dressing in public clothing ARTICLES SCORE Total number of steps: 0 DRESSING - UPPER BODY - SCORE: 0-UNK DRESSING - LOWER BODY: Activity did not occur on this shift Patient is not dressing in public clothing ARTICLES SCORE Total number of steps: 0 DRESSING - LOWER BODY - SCORE: 0-UNK TOILETING: Activity did not occur on this shift TOILETING - SCORE: 0-UNK BLADDER MANAGEMENT: Activity did not occur on this shift BLADDER MANAGEMENT - SCORE: 7-IND BOWEL MANAGEMENT: Activity did not occur on this shift BOWEL MANAGEMENT - SCORE: 7-IND TRANSFERS: BED, CHAIR, WHEELCHAIR: TRANSFERS: BED, CHAIR, WHEELCHAIR - STEP 1: Does the patient require assistance with bed, chair, or wheelchair transfers? Yes. TRANSFERS: BED, CHAIR, WHEELCHAIR - STEP 2: Does the patient require the assistance of a helper? Yes. TRANSFERS: BED, CHAIR, WHEELCHAIR - STEP 3: How much assistance does the patient require from the helper? Lifting of the legs TRANSFERS: BED, CHAIR, WHEELCHAIR - STEP 4: How many legs does the patient require the helper to lift? one leg TRANSFERS: BED, CHAIR, WHEELCHAIR - SCORE: 4-MIN TRANSFERS: TOILET: Activity did not occur on this shift TRANSFERS: TOILET - SCORE: 0-UNK TRANSFERS: SHOWER: Activity did not occur on this shift TRANSFERS: SHOWER - SCORE: 0-UNK TRANSFERS: TUB: Activity did not occur on this shift TRANSFERS: TUB - SCORE: 0-UNK LOCOMOTION: WALK: Patient walks less than 50 feet LOCOMOTION: WALK - SCORE: 1-DEP LOCOMOTION: WHEELCHAIR: Patient propels wheelchair less than 50 ft LOCOMOTION: WHEELCHAIR - SCORE: 1-DEP LOCOMOTION: STAIRS: Activity did not occur on this shift LOCOMOTION: STAIRS - SCORE: 0-UNK COMPREHENSION: COMPREHENSION - SCORE: 0-UNK EXPRESSION EXPRESSION - SCORE: 0-UNK SOCIAL INTERACTION: SOCIAL INTERACTION - SCORE: 0-UNK PROBLEM SOLVING: PROBLEM SOLVING - SCORE: 0-UNK MEMORY: MEMORY - SCORE: 0-UNK SIGNATURE PANEL: The following modified sections: Transfers: Bed, Chair, Wheelchair - Score, Transfers: Toilet - Score , Locomotion: Walk - Score, Locomotion: Wheelchair - Score, Locomotion: Stairs - Score were [electron icaaman] signed by Mauro Rodriguez PT on WedMar 21 2018 15:42:51 T-0500 (Central Daylight Time)
--- NOTE | 2018-03-21 16:50 | R.HP ---
FACILITY: [facility] ENCOUNTER DATE AND TIME: 03/21/2018 14:55 (CDT) MR#: [id number] NAME DOC HINKLE ADDRESS: [address] [place] [address] CITY: [place] ZIP [id number] PHONE: DATE OF : 1945 AGE: 72 SSN# [id number] GENDER: Female DEXTERITY Right-handed MARITAL STATUS RACE White PRE-HOSPITAL LIVING SETTING 01 - Home (private home/apt. board/care, assisted living, prison, transitional living) PRE-HOSPITAL LIVING WITH Family/Relatives ENCOUNTER PHYSICIAN: Dr. Joao Robles M.D. REFERRING DOCTOR: dwaine Mendiola DATE OF ADMISSION: 03/20/2018 11:23 (CDT) REFERRING FACILITY [facility] HOME TYPE AND DETAILS: Type of home: single family house # of levels in the residence: 1 # of steps within the residence: 0 # of steps to enter the residence: 1 ADMISSION DIAGNOSIS: RIGHT HIP FEMORAL NECK FRACTURE ONSET DATE: 03/14/2018 PRIMARY DIAGNOSIS-RELATED SURGERIES: RIGHT HIP HEMIARTHROPLASTY on 03/16/2018 SECONDARY/COMORBID DIAGNOSES (TIERED): - N/A HTN TRIGEMINAL NEURALGIA SKIN CANCER HISTORY OF PRESENT ILLNESS (HPI): Pt. is a 72 yo Right-handed white female. Her impairment category is Orthopaedic Disorders 08 - Femur (Shaft) Fracture (08.2). Pre-morbidly, Pt. was independent/mod-I in Social Cognition, Self-Care, Locomotion, Sphincter Control , Transfers Control, and Communication; and she had good Sphincter Control. Currently, she has deficits of Balance, Locomotion, Endurance, Safety Awareness, Transfers Control, a nd Self-Care. Pt. is now referred to [facility] for acute in-patient rehabilitation in order to maximize patient's functional independence in activities of daily living, strength, ROM, and mobi lity. Patient has realistic goal of being discharged at assistance level 6-Sherrie to reside at Home with Fam syed/Relatives. MEDICATION ALLERGIES: GUAIFENESIN PENICILLIN Sulfamethoxazole TRIMETHOPRIM ENVIRONMENTAL ALLERGIES: None Known - Substance Allergies None Known - Other Allergies None Known PAST MEDICAL HISTORY: HTN SKIN CANCER TRIGEMINAL NEURALGIA PAST SURGICAL HISTORY: BRAIN SURGERY CAESARIAN RADIAL RHIESOTOMY RIGHT BREAST BENIGN CYST REMOVAL FAMILY HISTORY: Family history is not contributory. SOCIAL HISTORY: - Home Living Family/Relatives REVIEW OF SYSTEMS: - Gen No Chills No Fatigue No Fever - Eyes No Double Vision No itchiness - ENMT No Difficulty Swallowing - CVS No Chest Discomfort No Chest Pain No Fatigue No Weight Gain - Resp No Cough No Shortness of Breath - GI Continent No Abdominal Pain No Constipation No Diarrhea - Continent No Kidney Pain No Painful Urination No Urinary Urgency - MSK No Joint Pain No Muscle Cramps No Stiffness - Skin No Itching No Rash No Suspicious Lesions - Neuro No Coordination Difficulty No Difficulty with Concentration No Memory Loss No Seizures No Weakness - Psych No Anxiety No Depression No HIV Exposure No Persistent Infections No Seasonal Allergies - Endo No Cold/Heat Intolerance No Excessive Hunger No Excessive Thirst No Excessive Urination PHYSICAL EXAM - Gen Alert and awake Lying in bed No apparent distress Oriented to: person, time, and place - Skin No skin breakdown. Normacephalic - Eyes No abnormalities - ENMT No abnormalities - Neck No abnormalities - CVS RRR - Chest Clear - Abd Soft - GI + bowel sound Deferred - No abnormalities - Ext Right hip surgical site has good hemostasis. - MSK 4+/5 weakness in right lower extremity - Neuro 4/5 strength right lower extremity. - Psych No abnormalities VITAL SIGNS Temperature: 98.2 F SBP/DBP: 119/67 Pulse: 105 Resp: 18 Vital signs stable, afebrile NURSING: - Shower allowing shower - Skin care per protocol PRECAUTIONS: - Weight Bearing Precaution WBAT right LE - Fall Precaution Bed and chair alarm ACTIVITIES OOB only with supervision FUNCTIONAL STATUS: - Self-Care A. Eating Ind Ind B. Grooming Ind Sherrie C. Bathing Ind Dot D. Dressing - Upper Ind Dot E. Dressing - Lower Ind Dot F. Toileting Ind Dot - Sphincter Control G: Bladder control Ind Ind H: Bowel control Ind Ind - Transfers Control I. Bed/Chair/Wheelchair Ind maxA J. Toilet Ind maxA K. Tub/Shower Ind ADNO - Locomotion L. Walk/Wheelchair (C) Ind maxA L. Walk/Wheelchair (W) Ind maxA M. Stairs Ind ADNO - Communication N. Comprehension (B) Ind Ind O. Expression (B) Ind Ind - Social Cognition P. Social Interaction Ind Ind Q. Problem Solving Ind Ind R. Memory Ind Ind - Endurance Fair - Balance Fair - Safety Awareness Fair CURRENT FUNC. DEFICITS: Balance, Locomotion, Endurance, Safety Awareness, Transfers Control, and Self-Care ASSESSMENT: Pt. is a 72 yo Right-handed white female.Her impairment category is Orthopaedic Disorders 08 - Femur (Shaft) Fracture (08.2).Pre-morbidly, Pt. was independent/mod-I in Social Cognition, Self-Care, [place] motion, Sphincter Control, Transfers Control, and Communication; and she had good Sphincter Control.C urrently, she has deficits of Balance, Locomotion, Endurance, Safety Awareness, Transfers Control, an d Self-Care.Pt. is now referred to [facility] for acute in-patient rehabilitat ion in order to maximize patient's functional independence in activities of daily living, strength, R OM, and mobility.- Rehab Goal Patient has realistic goal of being discharged at assistance level 6-Sherrie to reside at Home with Fam syed/Relatives. REHAB PLAN: - Physical Therapy Decreased range of motion - to improve, our physical therapists will perform initial evaluation of pt 's status upon admission and devise an individualized program for increasing patient's Range of Motio n. Gait dysfunction - to improve, our physical therapists will perform initial evaluation of pt's status upon admission and devise an individualized program for Gait Training, and Wheel Chair mobility Inability to transfer - to improve, our physical therapists will perform initial evaluation of pt's s tatus upon admission and devise an individualized program for Bed mobility Need for home safety evaluation - to improve, our physical therapists will perform initial evaluation of pt's status upon admission and devise an individualized program for Home Evaluation Need in caregiver upon discharge - to improve, our physical therapists will perform initial evaluatio n of pt's status upon admission and devise an individualized program for Caregiver Training New precaution - to improve, our physical therapists will perform initial evaluation of pt's status u allyson admission and devise an individualized program for Patient precaution education Poor balance - to improve, our physical therapists will perform initial evaluation of pt's status upo n admission and devise an individualized program for Balance Training Poor endurance - to improve, our physical therapists will perform initial evaluation of pt's status u allyson admission and devise an individualized program for Endurance Training Weakness - to improve, our physical therapists will perform initial evaluation of pt's status upon ad mission and devise an individualized program for Aquatic Therapy, Neuromuscular Reeducation, and Stre ngthening Achieving independence - to improve, our physical therapists will perform initial evaluation of pt's status upon admission and devise an individualized program for Community Reintegration Activities - Occupational Therapy ADL deficits - to improve, our occupation therapists will perform initial evaluation of pt's status u allyson admission and devise an individualized program for Bathing, Bed mobility, Community Reintegration , Cooking, Dressing, Eating, Fine Motor Skills, Grooming, Homemaking, Kitchen Mobility, Laundry, Estelle ent Education, Safety Awareness, Splinting - Positioning, Transfers(Toilet, Tub, Shower), and Wheel C hair Management Need for continuum of care manager - to improve, our occupation therapists will perform initial evaluation of pt's s tatus upon admission and devise an individualized program for Caregiver Training Weakness - to improve, our occupation therapists will perform initial evaluation of pt's status upon admission and devise an individualized program for Aquatic Therapy, Balance, Endurance, UE ROM, and U E strengthening MEDICAL PLAN: - Diet Type Start Regular - Diet - Liquid Texture Start Regular - Tube Feed Start N/A - Weight Bearing Precaution WBAT right LE - Fall Precaution Bed and chair alarm - Skin care per protocol - Diet - Solid Texture Regular - Shower shower DISCHARGE PLAN: - Estimated Length of Stay (days) 14. - Consensus on plan Discharge plan has been discussed with primary caregiver. Patient/Family is in agreement with the kalani n. Primary caregiver is in agreement with the plan. - Patient/Family Goals Return home with assistance. - Planned Living Setting Upon Discharge Home, to live with Family/Relatives. SIGNATURE PANEL: (CDT)
--- NOTE | 2018-03-21 16:50 | PAPE ---
PATIENT: [facility] MR# [id number] REFERRING DOCTOR dwaine Mendiola EVALUATION DATE AND TIME 03/21/2018 15:50 (CDT) NAME DOC HINKLE DATE OF 1945 AGE 72 PHONE N# [id number] GENDER female EVALUATING PHYSICIAN Dr. Joao Robles M.D. ADMISSION DIAGNOSIS: RIGHT HIP FEMORAL NECK FRACTURE ONSET DATE 03/14/2018 SECONDARY/COMORBID DIAGNOSES TIERED: - N/A HTN TRIGEMINAL NEURALGIA SKIN CANCER POST-ADMISSION FUNCTIONAL/MEDICAL STATUS: - Bladder Same accident frequency: Ind - No accidents in the past 7 days - Bowel Same accident frequency: Ind - No accidents in the past 7 days - Walking Same score based on distance walked: 1(<=50ft) - Wheelchair Same score based on distance traveled: 0(N/A) STATUS CHANGE EVALUATION: No change in Functional or Medical Status is identified compared with Pre-Admission screening. PATIENT NEEDS CLOSE MEDICAL SUPERVISION BY A REHABILITATION PHYSICIAN FOR: Bowel and Bladder Management Coordination of Treatment Team Medical and Co-Morbidity Management Wound Care Pain Management DVT Management PATIENT REQUIRES 24X7 REHAB NURSING FOR MEDICAL AND FUNCTIONAL MGT. OF THE FOLLOWING DEFICITS: ADL's Ambulation Bowel and Bladder Management Communication Disease Management Medication Management Patient/Family Education Providing Safe Environment Skin Integrity Transfers Pain Management PATIENT REQUIRES INTENSIVE, COORDINATED INTERDISCIPLINARY APPROACH TO REHAB: Arranging Home Equipment/Services Discharge Planning Family Intervention/Training [employer] Consultant/Case Management LIST OF IDENTIFIED AND POTENTIAL PROBLEMS: Alteration in leisure activities Bladder, Incontinence Bowel, Incontinence Infection, Actual or Potential Mobility Impaired Pain, Alteration in Comfort Self Care Deficit Skin Integrity, Actual or Potential Urinary Tract Infection (UTI), Actual or Potential PATIENT COULD BE AT RISK FOR COMPLICATIONS FROM ADVERSE MEDICAL CONDITIONS DUE TO HIS/HER COMORBIDITI ES AND THE RIGORS OF THE INTENSIVE REHABILLITATION PROGRAM. METHODS OR INTERVENTIONS TO AVOID COMPLIC ATIONS INCLUDE: - Deep Vein Thrombosis (DVT) Prophylaxis therapy for prevention . Sequential Compression Device (SCD). TE D Hose. - Bleeding Assess lab values and manage abnormalities. Nursing to teach precautions for anti-coagulation therapy . Wound to be assessed every shift. - Infection Clinical staff to assess and manage the signs and symptoms of infection including fever, redness, war mth, etc. - Urinary Tract Infection - Falls Patient will be evaluated for Fall Precautions and will be placed on Fall Precautions as indicated pe r protocol. - Skin Breakdown Nursing will assess skin daily using assessment tool and will place on Skin Breakdown Precautions as indicated per protocol. - Pain Clinical staff may employ non-medication methods such as massage, distraction, decrease stimulus, etc . as needed. Clinical staff will assess patient's pain level every shift per protocol to assess and e nsure pain management effectiveness. Medications will be given and the pain level re-assessed. PRELIMINARY PLAN OF CARE: - Physical Therapy Patient needs Physical Therapy for a daily minimum of 1.5 hours at least 5 out of 7 days, to improve: Mobility, Strengthening, Transfers, Stretching, ROM, Endurance, Ability to manage stairs, Gait, and Balance. - Rehabilitation Nursing Patient requires 24x7 Rehabilitation Nursing for: Pain Issues, Identifying and preventing risk factor s, Monitoring and reporting current medical conditions, Assisting with ambulation and transfer, Les ting with all ADL-s, Teaching patients about disease process and medications, Family teaching, Provid ing safe environment, Bowel and Bladder Issues, Skin Integrity, and Medication Management. Patient needs [employer] Consultant and/or Case Management for: Discharge Planning, Arranging Home Equipmen t or Services, and Family Interventions. - Dietary and Nutrition Services Patient needs Dietary and Nutrition Services for: Adequate Nutrition, Nutritional Supplements, and Nu tritional Education. - Occupational Therapy Patient needs Occupational Therapy for a daily minimum of 1.5 hours at least 5 out of 7 days, to impr ove Activities of Daily Living, including: Eating, Grooming, Bathing, Dressing, Toileting, Toilet Tra nsfers, Community Reintegration, Higher functional activities, Adaptive Equipment, Splinting, Househo ld Tasks, and Other activities as determined. POTENTIAL FUNCTIONAL GOALS FOR PATIENT TO ACHIEVE BY DISCHARGE: - Safety Precaution Patient will remain free from falls or injury at time of discharge. - Bed Mobility Patient will perform bed mobility at 4-Dot level of assistance. - Transfers Patient will complete transfers from bed to chair at 4-Dot level of assistance. - Mobility Patient will ambulate 150 ft with 4-Dot level of assistance with RW. PATIENT REHAB POTENTIAL Expected level of measurable improvement will be of a practical value to patient's functional capacit y or adaptations to impairments Has a viable Discharge Plan Medically appropriate; condition is sufficiently stable to participate in intensive rehab program Patient is able and expected to receive 3 hours of individualized therapy daily on at least 5 of ever y 7 days Patient's prognosis for significant practical improvement within a reasonable period of time appears Good DISCHARGE PLAN: - Estimated Length of Stay (days) 14. - Consensus on plan Discharge plan has been discussed with primary caregiver. Patient/Family is in agreement with the kalani n. Primary caregiver is in agreement with the plan. - Patient/Family Goals Return home with assistance. - Planned Living Setting Upon Discharge Home, to live with Family/Relatives. CONCLUSION ON REHABILITATION NECESSITY: I have evaluated patient's pre-admission functional status and, comparing it to the patient's post-ad mission functional status now, I conclude that the pre-admission assessment was accurate. Patient's c ondition on admission supports the medical necessity of admission to IRF. It is safe to proceed with patient's therapy program. SIGNATURE PANEL: (CDT)
--- NOTE | 2018-03-21 17:57 | P.PN ---
Subjective Date of Service: 03/21/18 Chief Complaint: FU , WELL Subjective: Improving Review of Systems 10-point ROS is otherwise unremarkable Physical Examination - Vital Signs Temperature: 97.4 F Blood Pressure: 140/69 Pulse: 101 Respirations: 20 Pulse Ox (%): 93 - Physical Exam General: Alert, In no apparent distress HEENT: Atraumatic, PERRLA, EOMI Neck: Supple, JVD not distended Respiratory: Clear to auscultation bilaterally, Normal air movement Cardiovascular: Regular rate/rhythm, Normal S1 S2 Gastrointestinal: Normal bowel sounds, No tenderness Musculoskeletal: Other (RIGHT HIP SP SURGERY.) Integumentary: No rashes Neurological: Normal speech, Normal tone, Normal affect Lymphatics: No axilla or inguinal lymphadenopathy - Studies Laboratory Data (last 24 hrs) 03/21/18 05:34: Sodium 139, Potassium 3.3 L, BUN 12, Creatinine 0.60, Glucose 112, Magnesium 2.0 03/21/18 05:34: WBC 6.7, Hgb 8.9 L, Hct 25.9 L, Plt Count 258 D Medications List Reviewed: Yes Assessment And Plan - Current Problems (Diagnosis) (1) HTN (hypertension) Current Visit: Yes Status: Acute (2) Hip fracture, right Current Visit: No Status: Acute Plan: RESUME PT LOW K- FRUIT DAILY CHECK TWICE A WEEK SHE IS NOT ON DIURETICS. Qualifiers: Fracture type: closed
[2018-03-21] MEDS ORDERED: POLYETHYL GLY 3350 17 GM/DOSE PO PRN (19:15)
--- NOTE | 2018-03-22 03:13 | FAST ---
SHIFT START DATE/TIME: 03/21/2018 19:00 (CDT) SHIFT END DATE/TIME: 03/22/2018 07:00 (CDT) NAME DOC HINKLE DATE OF : 1945 DATE OF ADMISSION: 03/20/2018 11:23 (CDT) PHONE: AGE: 72 [facility]# [id number] GENDER: Female ENCOUNTER PHYSICIAN: Dr. Joao Robles M.D. ADMISSION DIAGNOSIS: - Orthopaedic Disorders 08 - Femur (Shaft) Fracture (08.2) RIGHT HIP FEMORAL NECK FRACTURE. EATING: Activity did not occur on this shift EATING - SCORE: 0-UNK GROOMING: Wash, rinse, and dry hands GROOMING - STEP 1: Does the patient require assistance when grooming? Yes. GROOMING - STEP 2: Does the patient require the assistance of a helper? Yes. GROOMING - STEP 3: How much assistance does the patient require from the helper? Only prior equipment preparation/set up from the helper GROOMING - SCORE: 5-SUP BATHING: Activity did not occur on this shift BATHING - SCORE: 0-UNK DRESSING - UPPER BODY: Patient is not dressing in public clothing ARTICLES SCORE Total number of steps: 0 DRESSING - UPPER BODY - SCORE: 0-UNK DRESSING - LOWER BODY: Patient is not dressing in public clothing ARTICLES SCORE Total number of steps: 0 DRESSING - LOWER BODY - SCORE: 0-UNK TOILETING: TOILETING - STEP 1: Does the patient require assistance with toileting? Yes. TOILETING - STEP 2: Does the patient require the assistance of a helper? Yes. TOILETING - STEP 3: How much assistance does the patient require from the helper? Hands-on assistance from the helper TOILETING - STEP 4: Of the 3 tasks: 1) Adjusting clothing prior to use, 2) Cleansing of perineal area, 3) Adjusting clot ruperto after use; How many tasks does the patient perform WITHOUT assistance of the helper? Three tasks with steadying assistance from the helper TOILETING - SCORE: 4-MIN BLADDER MANAGEMENT: BLADDER MANAGEMENT - STEP 1: Does the patient control the bladder completely and intentionally without equipment or devices or med ications, and is always continent? No. BLADDER MANAGEMENT - STEP 2: Does the patient require the assistance of a helper? Yes. BLADDER MANAGEMENT - STEP 3: How much assistance does the patient require from the helper? Patient requires contact assistance fro m the helper BLADDER MANAGEMENT - STEP 4: How much contact assistance does the patient require from the helper? Patient requires minimal assist ance to maintain an external device - by positioning, and the patient performs 75% or more of bladder management tasks, while the helper provides less than 25% of the assistance to position patient on / off bedpan BLADDER MANAGEMENT - SCORE: 4-MIN BOWEL MANAGEMENT: Activity did not occur on this shift BOWEL MANAGEMENT - SCORE: 7-IND TRANSFERS: BED, CHAIR, WHEELCHAIR: TRANSFERS: BED, CHAIR, WHEELCHAIR - STEP 1: Does the patient require assistance with bed, chair, or wheelchair transfers? Yes. TRANSFERS: BED, CHAIR, WHEELCHAIR - STEP 2: Does the patient require the assistance of a helper? Yes. TRANSFERS: BED, CHAIR, WHEELCHAIR - STEP 3: How much assistance does the patient require from the helper? Lifting of the legs TRANSFERS: BED, CHAIR, WHEELCHAIR - STEP 4: How many legs does the patient require the helper to lift? one leg TRANSFERS: BED, CHAIR, WHEELCHAIR - SCORE: 4-MIN TRANSFERS: TOILET: TRANSFERS: TOILET - STEP 1: Does the patient require assistance with toilet transfers? Yes. TRANSFERS: TOILET - STEP 2: Does the patient require the assistance of a helper? Yes. TRANSFERS: TOILET - STEP 3: How much assistance does the patient require from the helper? Patient performs half or more of the tr ansferring tasks TRANSFERS: TOILET - STEP 4: Does the patient need only incidental help such as contact guard or steadying during toilet transfer? No. Patient needs more than incidental help TRANSFERS: TOILET - SCORE: 3-MOD TRANSFERS: SHOWER: Activity did not occur on this shift TRANSFERS: SHOWER - SCORE: 0-UNK TRANSFERS: TUB: Activity did not occur on this shift TRANSFERS: TUB - SCORE: 0-UNK LOCOMOTION: WALK: Activity did not occur on this shift LOCOMOTION: WALK - SCORE: 0-UNK LOCOMOTION: WHEELCHAIR: Activity did not occur on this shift LOCOMOTION: WHEELCHAIR - SCORE: 0-UNK COMPREHENSION: COMPREHENSION: TYPE: Both COMPREHENSION - STEP 1: Does the patient require help to understand complex and abstract ideas (such as current events, finan neal, discharge planning, medical issues, relationships, etc)? No. COMPREHENSION - STEP 2: Does the patient need extra time, require an assistive device (such as glasses, hearing aids, or an a ugmentative communication system), OR does s/he have mild difficulty expressing complex and abstract ideas (including mild dysarthria or mild word-finding problems)? Yes. COMPREHENSION - SCORE: 6-CADEN EXPRESSION EXPRESSION: TYPE: Both EXPRESSION - STEP 1: Does the patient require help expressing complex and abstract ideas (such as current events, finances , discharge planning, medical issues, relationships, etc)? No. EXPRESSION - STEP 2: Does the patient need extra time, require an assistive device (such as augmentive communication syste m or a communication board), OR does s/he have mild difficulty expressing complex and abstract ideas (including mild dysarthria or mild word-find problems)? No. EXPRESSION - SCORE: 7-IND SOCIAL INTERACTION: SOCIAL INTERACTION - STEP 1: Does the patient require a helper to interact with others in social and therapeutic situations? No. SOCIAL INTERACTION - STEP 2: Does the patient need extra time in social situations, OR does s/he interact with staff, other patien ts, and family members ONLY in structured environments, OR does s/he require medication for social in teraction? No. SOCIAL INTERACTION - SCORE: 7-IND PROBLEM SOLVING: PROBLEM SOLVING - STEP 1: Does the patient need help to solve complex problems such as managing a checking account or confronti ng interpersonal problems? No. PROBLEM SOLVING - STEP 2: Does the patient require extra time to make decisions or solve problems, OR does s/he have slight dif ficulty reading, initiating, or self-correcting in unfamiliar situations? No. PROBLEM SOLVING - SCORE: 7-IND MEMORY: MEMORY - STEP 1: Does the patient need help to remember frequently encountered people, daily routines, and executing r equests? No. MEMORY - STEP 2: Does the patient have slight difficulty recognizing frequently encountered people, daily routines, or executing requests without the need for repetition or using self-initiated or environmental cues to remember? No. MEMORY - SCORE: 7-IND
[2018-03-22] MEDS: FLUTICASONE 50MCG NASAL SPRAY NAS SCH (06:53)
[2018-03-22] MEDS: FERROUS SULFATE 325 MG TAB PO SCH (06:54)
[2018-03-22] MEDS: FE SULF/FA/VIT B COMP & C TAB PO SCH (06:54)
[2018-03-22] MEDS: ACETAMINOPHEN 500 MG TAB PO PRN ×2 (06:54→12:52)
[2018-03-22] MEDS: ENOXAPARIN 30 MG/0.3 ML SQ SCH (06:54)
[2018-03-22] MEDS: DOCUSATE NA 100 MG CAP PO SCH (06:55)
[2018-03-22] MEDS: GABAPENTIN 100 MG CAP PO SCH ×3 (06:55→20:59)
[2018-03-22] MEDS: BISOPROLOL 5 MG TABLET PO SCH (06:55)
[2018-03-22] MEDS: CARBAMAZEPINE 200 MG TAB PO SCH ×3 (06:57→20:59)
[2018-03-22] MEDS: LOSARTAN POTASSIUM 50 MG TABLET PO SCH (06:57)
[2018-03-22] MEDS: PROMOD 30 ML DOSE PO SCH ×2 (06:58→20:59)
[2018-03-22] MEDS: TRIAMCINOLONE ACETONIDE IH SCH (06:58)
--- NOTE | 2018-03-22 12:56 | P.PN ---
Subjective Date of Service: 03/22/18 Chief Complaint: FU , WELL Subjective: Improving Review of Systems 10-point ROS is otherwise unremarkable Physical Examination - Vital Signs Temperature: 97.4 F Blood Pressure: 157/77 Pulse: 113 Respirations: 20 Pulse Ox (%): 95 - Physical Exam General: Alert, In no apparent distress HEENT: Atraumatic, PERRLA, EOMI Neck: Supple, JVD not distended Respiratory: Clear to auscultation bilaterally, Normal air movement Cardiovascular: Regular rate/rhythm, Normal S1 S2 Gastrointestinal: Normal bowel sounds, No tenderness Musculoskeletal: Other (RIGHT HIP PAIN.) Integumentary: No rashes Neurological: Normal speech, Normal tone, Normal affect Lymphatics: No axilla or inguinal lymphadenopathy - Studies Microbiology Data (last 24 hrs): 03/20/18 20:28 Clean Catch Urine [place] Count - Final >100,000 CFU/ML. 03/20/18 20:28 Clean Catch Urine - Final Enterococcus Faecalis Medications List Reviewed: Yes Assessment And Plan - Current Problems (Diagnosis) (1) HTN (hypertension) Onset Date: 03/22/18 Current Visit: Yes Status: Acute Qualifiers: Hypertension type: essential hypertension Qualified Code(s): I10 - Essential (primary) hypertension (2) Hip fracture, right Onset Date: 03/22/18 Current Visit: Yes Status: Acute Plan: RESUME PT LOW K- FRUIT DAILY CHECK TWICE A WEEK SHE IS NOT ON DIURETICS. Qualifiers: Fracture type: closed
--- NOTE | 2018-03-22 15:37 | FAST ---
SHIFT START DATE/TIME: 03/22/2018 07:00 (CDT) SHIFT END DATE/TIME: 03/22/2018 19:00 (CDT) NAME DOC HINKLE DATE OF : 1945 DATE OF ADMISSION: 03/20/2018 11:23 (CDT) PHONE: AGE: 72 [facility]# [id number] GENDER: Female ENCOUNTER PHYSICIAN: Dr. Joao Robles M.D. ADMISSION DIAGNOSIS: - Orthopaedic Disorders 08 - Femur (Shaft) Fracture (08.2) RIGHT HIP FEMORAL NECK FRACTURE. EATING: EATING - STEP 1: Does the patient require assistance when eating? Yes. EATING - STEP 2: Does the patient require the assistance of a helper? Yes. EATING - STEP 3: Does the patient perform half or more of the eating tasks? Yes. EATING - STEP 4: Does the patient need only supervision, cuing, coaxing OR help to apply an orthosis OR help to cut fo od, open containers, pour liquids, or butter bread? Yes. EATING - SCORE: 5-SUP GROOMING: Comb/brush hair Oral care Wash, rinse, and dry face Wash, rinse, and dry hands GROOMING - STEP 1: Does the patient require assistance when grooming? Yes. GROOMING - STEP 2: Does the patient require the assistance of a helper? Yes. GROOMING - STEP 3: How much assistance does the patient require from the helper? Only prior equipment preparation/set up from the helper GROOMING - SCORE: 5-SUP BATHING: Activity did not occur on this shift BATHING - SCORE: 0-UNK DRESSING - UPPER BODY: Bra (three steps) T-shirt/pullover shirt (four steps) ARTICLES SCORE Total number of steps: 7 DRESSING - UPPER BODY - STEP 1: Does the patient require help when dressing above the waist? Yes. DRESSING - UPPER BODY - STEP 2: Does the patient require the assistance of a helper? Yes. DRESSING - UPPER BODY - STEP 3: Does the helper touch the patient while dressing? No. DRESSING - UPPER BODY - SCORE: 5-SUP DRESSING - LOWER BODY: Elastic waist pants (three steps) Slip-on shoe - Left foot (one step) Slip-on shoe - Right foot (one step) Underwear (three steps) ARTICLES SCORE Total number of steps: 8 DRESSING - LOWER BODY - STEP 1: Does the patient require help when dressing below the waist? Yes. DRESSING - LOWER BODY - STEP 2: Does the patient require the assistance of a helper? Yes. DRESSING - LOWER BODY - STEP 3: Does the helper touch the patient while dressing? No. DRESSING - LOWER BODY - SCORE: 5-SUP TOILETING: TOILETING - STEP 1: Does the patient require assistance with toileting? Yes. TOILETING - STEP 2: Does the patient require the assistance of a helper? Yes. TOILETING - STEP 3: How much assistance does the patient require from the helper? Only supervision TOILETING - SCORE: 5-SUP BLADDER MANAGEMENT: BLADDER MANAGEMENT - STEP 1: Does the patient control the bladder completely and intentionally without equipment or devices or med ications, and is always continent? No. BLADDER MANAGEMENT - STEP 2: Does the patient require the assistance of a helper? Yes. BLADDER MANAGEMENT - STEP 3: How much assistance does the patient require from the helper? Only supervision, stand-by, cuing, or c oaxing BLADDER MANAGEMENT - SCORE: 5-SUP BLADDER MANAGEMENT - FREQUENCY OF ACCIDENTS: BLADDER MANAGEMENT(FA) - STEP 1: How many accidents has the patient had during the current shift? 0 BOWEL MANAGEMENT: Activity did not occur on this shift BOWEL MANAGEMENT - SCORE: 7-IND BOWEL MANAGEMENT - FREQUENCY OF ACCIDENTS: BOWEL MANAGEMENT(FA) - STEP 1: How many accidents has the patient had during the current shift? 0 TRANSFERS: BED, CHAIR, WHEELCHAIR: TRANSFERS: BED, CHAIR, WHEELCHAIR - STEP 1: Does the patient require assistance with bed, chair, or wheelchair transfers? Yes. TRANSFERS: BED, CHAIR, WHEELCHAIR - STEP 2: Does the patient require the assistance of a helper? Yes. TRANSFERS: BED, CHAIR, WHEELCHAIR - STEP 3: How much assistance does the patient require from the helper? Only supervision TRANSFERS: BED, CHAIR, WHEELCHAIR - SCORE: 5-SUP TRANSFERS: TOILET: TRANSFERS: TOILET - STEP 1: Does the patient require assistance with toilet transfers? Yes. TRANSFERS: TOILET - STEP 2: Does the patient require the assistance of a helper? No. Patient only requires an assistive device cunningham ch as a grab bar or special seat, OR s/he takes more than reasonable time to perform toilet transfers , OR there is a safety concern when s/he performs toilet transfers. TRANSFERS: TOILET - SCORE: 6-CADEN TRANSFERS: SHOWER: Activity did not occur on this shift TRANSFERS: SHOWER - SCORE: 0-UNK TRANSFERS: TUB: Activity did not occur on this shift TRANSFERS: TUB - SCORE: 0-UNK LOCOMOTION: WALK: Activity did not occur on this shift LOCOMOTION: WALK - SCORE: 0-UNK LOCOMOTION: WHEELCHAIR: LOCOMOTION: WHEELCHAIR - STEP 1: Does the patient need help to go 150 feet in a wheelchair? Yes. LOCOMOTION: WHEELCHAIR - STEP 2: How much assistance does the patient need from the helper? Only supervision, cuing, or coaxing LOCOMOTION: WHEELCHAIR - SCORE: 5-SUP COMPREHENSION: COMPREHENSION: TYPE: Both COMPREHENSION - STEP 1: Does the patient require help to understand complex and abstract ideas (such as current events, finan neal, discharge planning, medical issues, relationships, etc)? No. COMPREHENSION - STEP 2: Does the patient need extra time, require an assistive device (such as glasses, hearing aids, or an a ugmentative communication system), OR does s/he have mild difficulty expressing complex and abstract ideas (including mild dysarthria or mild word-finding problems)? Yes. COMPREHENSION - SCORE: 6-CADEN EXPRESSION EXPRESSION - STEP 1: Does the patient require help expressing complex and abstract ideas (such as current events, finances , discharge planning, medical issues, relationships, etc)? Yes. EXPRESSION - STEP 2: Does the patient require help to express basic necessities or ideas (such as hunger, thirst, sleep, s afety, daily schedule, room location, or discomfort) half or more of the time? No. EXPRESSION - STEP 3: How often does the patient need help to express directions and conversation about basic needs? Less t silvestre 10% of the time EXPRESSION - SCORE: 5-SUP SOCIAL INTERACTION: SOCIAL INTERACTION - STEP 1: Does the patient require a helper to interact with others in social and therapeutic situations? No. SOCIAL INTERACTION - STEP 2: Does the patient need extra time in social situations, OR does s/he interact with staff, other patien ts, and family members ONLY in structured environments, OR does s/he require medication for social in teraction? Yes, patient needs extra time SOCIAL INTERACTION - SCORE: 6-CADEN PROBLEM SOLVING: PROBLEM SOLVING - STEP 1: Does the patient need help to solve complex problems such as managing a checking account or confronti ng interpersonal problems? Yes. PROBLEM SOLVING - STEP 2: Does the patient solve basic routine problems half or more of the time? Yes. PROBLEM SOLVING - STEP 3: How often does the patient need help to solve basic routine problems? Less than 10% of the time PROBLEM SOLVING - SCORE: 5-SUP MEMORY: MEMORY - STEP 1: Does the patient need help to remember frequently encountered people, daily routines, and executing r equests? No. MEMORY - STEP 2: Does the patient have slight difficulty recognizing frequently encountered people, daily routines, or executing requests without the need for repetition or using self-initiated or environmental cues to remember? Yes. MEMORY - SCORE: 6-CADEN SIGNATURE PANEL: The following modified sections: Eating - Score, Grooming - Score, Bathing - Score, Dressing - Upper Body - Score, Dressing - Lower Body - Score, Toileting - Score, Bladder Management - Score, Bowel Man agement - Score, Transfers: Bed, Chair, Wheelchair - Score, Transfers: Toilet - Score, Transfers: Coby wer - Score, Transfers: Tub - Score, Locomotion: Walk - Score, Locomotion: Wheelchair - Score, Compre hension - Score, Expression - Score, Social Interaction - Score, Problem Solving - Score, Memory - Sc ore were [electronically] signed by Cesia Dumont C.N.A. on WedMar 22 2018 14:38:01 T-0500 (Cent[facility] Daylight [facility])
--- NOTE | 2018-03-22 17:14 | FAST ---
ENCOUNTER DATE AND TIME: 03/21/2018 08:00 (CDT) NAME DOC HINKLE DATE OF : 1945 DATE OF ADMISSION: 03/20/2018 11:23 (CDT) PHONE: AGE: 72 N# [id number] GENDER: Female ENCOUNTER PHYSICIAN: Dr. Joao Robles M.D. ADMISSION DIAGNOSIS: - Orthopaedic Disorders 08 - Femur (Shaft) Fracture (08.2) RIGHT HIP FEMORAL NECK FRACTURE. EATING: EATING - STEP 1: Does the patient require assistance when eating? No. EATING - SCORE: 7-IND GROOMING: Comb/brush hair Oral care Wash, rinse, and dry face Wash, rinse, and dry hands GROOMING - STEP 1: Does the patient require assistance when grooming? No. GROOMING - SCORE: 7-IND BATHING: Abdomen Buttocks Chest Left arm Left lower leg and foot Left upper leg Perineal area Right arm Right lower leg and foot Right upper leg BATHING - STEP 1: Does the patient require assistance when bathing? Yes. BATHING - STEP 2: Does the patient require the assistance of a helper? Yes. BATHING - STEP 3: How much assistance does the patient require from the helper? More than just incidental help BATHING - STEP 4: What percent of the body parts did the patient bathe WITHOUT the helper? Half or more of the body par ts BATHING - SCORE: 3-MOD DRESSING - UPPER BODY: Bra (three steps) T-shirt/pullover shirt (four steps) ARTICLES SCORE Total number of steps: 7 DRESSING - UPPER BODY - STEP 1: Does the patient require help when dressing above the waist? Yes. DRESSING - UPPER BODY - STEP 2: Does the patient require the assistance of a helper? Yes. DRESSING - UPPER BODY - STEP 3: Does the helper touch the patient while dressing? No. DRESSING - UPPER BODY - SCORE: 5-SUP DRESSING - LOWER BODY: Elastic waist pants (three steps) Sock - Left foot (one step) Sock - Right foot (one step) Underwear (three steps) ARTICLES SCORE Total number of steps: 8 DRESSING - LOWER BODY - STEP 1: Does the patient require help when dressing below the waist? Yes. DRESSING - LOWER BODY - STEP 2: Does the patient require the assistance of a helper? Yes. DRESSING - LOWER BODY - STEP 3: Does the helper touch the patient while dressing? Yes. DRESSING - LOWER BODY - STEP 4: How many of the total steps does the patient complete on his/her own? 2 DRESSING - LOWER BODY - STEP 5: Does patient require total assistance for dressing below the waist such as the helper holding clothin g and performing basically all the activities? No. DRESSING - LOWER BODY - SCORE: 2-MAX TOILETING: TOILETING - STEP 1: Does the patient require assistance with toileting? Yes. TOILETING - STEP 2: Does the patient require the assistance of a helper? Yes. TOILETING - STEP 3: How much assistance does the patient require from the helper? Hands-on assistance from the helper TOILETING - STEP 4: Of the 3 tasks: 1) Adjusting clothing prior to use, 2) Cleansing of perineal area, 3) Adjusting clot ruperto after use; How many tasks does the patient perform WITHOUT assistance of the helper? One task TOILETING - SCORE: 2-MAX BLADDER MANAGEMENT: Activity did not occur on this shift BLADDER MANAGEMENT - SCORE: 7-IND BOWEL MANAGEMENT: Activity did not occur on this shift BOWEL MANAGEMENT - SCORE: 7-IND TRANSFERS: BED, CHAIR, WHEELCHAIR: Activity did not occur on this shift TRANSFERS: BED, CHAIR, WHEELCHAIR - SCORE: 0-UNK TRANSFERS: TOILET: TRANSFERS: TOILET - STEP 1: Does the patient require assistance with toilet transfers? Yes. TRANSFERS: TOILET - STEP 2: Does the patient require the assistance of a helper? Yes. TRANSFERS: TOILET - STEP 3: How much assistance does the patient require from the helper? Patient performs half or more of the tr ansferring tasks TRANSFERS: TOILET - STEP 4: Does the patient need only incidental help such as contact guard or steadying during toilet transfer? Yes. TRANSFERS: TOILET - SCORE: 4-MIN TRANSFERS: SHOWER: TRANSFERS: SHOWER - STEP 1: Does the patient require assistance with shower transfers? Yes. TRANSFERS: SHOWER - STEP 2: Does the patient require the assistance of a helper? Yes. TRANSFERS: SHOWER - STEP 3: How much assistance does the patient require from the helper? Only incidental help such as contact gu arding or steadying during shower transfers, or help to lift one leg into the shower TRANSFERS: SHOWER - SCORE: 4-MIN TRANSFERS: TUB: Activity did not occur on this shift TRANSFERS: TUB - SCORE: 0-UNK LOCOMOTION: WALK: Activity did not occur on this shift LOCOMOTION: WALK - SCORE: 0-UNK LOCOMOTION: WHEELCHAIR: Activity did not occur on this shift LOCOMOTION: WHEELCHAIR - SCORE: 0-UNK LOCOMOTION: STAIRS: Activity did not occur on this shift LOCOMOTION: STAIRS - SCORE: 0-UNK COMPREHENSION: COMPREHENSION: TYPE: Both COMPREHENSION - STEP 1: Does the patient require help to understand complex and abstract ideas (such as current events, finan neal, discharge planning, medical issues, relationships, etc)? No. COMPREHENSION - STEP 2: Does the patient need extra time, require an assistive device (such as glasses, hearing aids, or an a ugmentative communication system), OR does s/he have mild difficulty expressing complex and abstract ideas (including mild dysarthria or mild word-finding problems)? No. COMPREHENSION - SCORE: 7-IND EXPRESSION EXPRESSION: TYPE: Both EXPRESSION - STEP 1: Does the patient require help expressing complex and abstract ideas (such as current events, finances , discharge planning, medical issues, relationships, etc)? No. EXPRESSION - STEP 2: Does the patient need extra time, require an assistive device (such as augmentive communication syste m or a communication board), OR does s/he have mild difficulty expressing complex and abstract ideas (including mild dysarthria or mild word-find problems)? No. EXPRESSION - SCORE: 7-IND SOCIAL INTERACTION: SOCIAL INTERACTION - STEP 1: Does the patient require a helper to interact with others in social and therapeutic situations? No. SOCIAL INTERACTION - STEP 2: Does the patient need extra time in social situations, OR does s/he interact with staff, other patien ts, and family members ONLY in structured environments, OR does s/he require medication for social in teraction? No. SOCIAL INTERACTION - SCORE: 7-IND PROBLEM SOLVING: PROBLEM SOLVING - STEP 1: Does the patient need help to solve complex problems such as managing a checking account or confronti ng interpersonal problems? No. PROBLEM SOLVING - STEP 2: Does the patient require extra time to make decisions or solve problems, OR does s/he have slight dif ficulty reading, initiating, or self-correcting in unfamiliar situations? Yes, patient needs extra ti me. PROBLEM SOLVING - SCORE: 6-CADEN MEMORY: MEMORY - STEP 1: Does the patient need help to remember frequently encountered people, daily routines, and executing r equests? No. MEMORY - STEP 2: Does the patient have slight difficulty recognizing frequently encountered people, daily routines, or executing requests without the need for repetition or using self-initiated or environmental cues to remember? Yes. MEMORY - SCORE: 6-CADEN SIGNATURE PANEL: The following modified sections: Eating - Score, Grooming - Score, Bathing - Score, Dressing - Upper Body - Score, Dressing - Lower Body - Score, Toileting - Score, Transfers: Bed, Chair, Wheelchair - S core, Transfers: Toilet - Score, Transfers: Tub - Score, Transfers: Shower - Score, Comprehension - S core, Expression - Score, Social Interaction - Score, Problem Solving - Score, Memory - Score were [e lectronically] signed by Izabela Callahan OT on WedMar 22 2018 16:14:50 T-0500 ([place] Day[place])
--- NOTE | 2018-03-22 17:41 | FAST ---
ENCOUNTER DATE AND TIME: 03/22/2018 08:00 (CDT) NAME DOC HINKLE DATE OF : 1945 DATE OF ADMISSION: 03/20/2018 11:23 (CDT) PHONE: AGE: 72 N# [id number] GENDER: Female ENCOUNTER PHYSICIAN: Dr. Joao Robles M.D. ADMISSION DIAGNOSIS: - Orthopaedic Disorders 08 - Femur (Shaft) Fracture (08.2) RIGHT HIP FEMORAL NECK FRACTURE. EATING: Activity did not occur on this shift EATING - SCORE: 0-UNK GROOMING: Activity did not occur on this shift GROOMING - SCORE: 0-UNK BATHING: Activity did not occur on this shift BATHING - SCORE: 0-UNK DRESSING - UPPER BODY: Activity did not occur on this shift Patient is not dressing in public clothing ARTICLES SCORE Total number of steps: 0 DRESSING - UPPER BODY - SCORE: 0-UNK DRESSING - LOWER BODY: Activity did not occur on this shift Patient is not dressing in public clothing ARTICLES SCORE Total number of steps: 0 DRESSING - LOWER BODY - SCORE: 0-UNK TOILETING: Activity did not occur on this shift TOILETING - SCORE: 0-UNK BLADDER MANAGEMENT: Activity did not occur on this shift BLADDER MANAGEMENT - SCORE: 7-IND BOWEL MANAGEMENT: Activity did not occur on this shift BOWEL MANAGEMENT - SCORE: 7-IND TRANSFERS: BED, CHAIR, WHEELCHAIR: TRANSFERS: BED, CHAIR, WHEELCHAIR - STEP 1: Does the patient require assistance with bed, chair, or wheelchair transfers? Yes. TRANSFERS: BED, CHAIR, WHEELCHAIR - STEP 2: Does the patient require the assistance of a helper? Yes. TRANSFERS: BED, CHAIR, WHEELCHAIR - STEP 3: How much assistance does the patient require from the helper? Only supervision TRANSFERS: BED, CHAIR, WHEELCHAIR - SCORE: 5-SUP TRANSFERS: TOILET: Activity did not occur on this shift TRANSFERS: TOILET - SCORE: 0-UNK TRANSFERS: SHOWER: Activity did not occur on this shift TRANSFERS: SHOWER - SCORE: 0-UNK TRANSFERS: TUB: Activity did not occur on this shift TRANSFERS: TUB - SCORE: 0-UNK LOCOMOTION: WALK: LOCOMOTION: WALK - STEP 1: Does the patient need help to walk 150 feet? Yes. LOCOMOTION: WALK - STEP 2: How much assistance does the patient require to walk a minimum of 150 feet? Only incidental help such as contact guarding or steadying LOCOMOTION: WALK - SCORE: 4-MIN LOCOMOTION: WHEELCHAIR: Activity did not occur on this shift LOCOMOTION: WHEELCHAIR - SCORE: 0-UNK LOCOMOTION: STAIRS: Activity did not occur on this shift LOCOMOTION: STAIRS - SCORE: 0-UNK COMPREHENSION: COMPREHENSION - SCORE: 0-UNK EXPRESSION EXPRESSION - SCORE: 0-UNK SOCIAL INTERACTION: SOCIAL INTERACTION - SCORE: 0-UNK PROBLEM SOLVING: PROBLEM SOLVING - SCORE: 0-UNK MEMORY: MEMORY - SCORE: 0-UNK SIGNATURE PANEL: The following modified sections: Transfers: Bed, Chair, Wheelchair - Score, Transfers: Toilet - Score , Locomotion: Walk - Score, Locomotion: Wheelchair - Score, Locomotion: Stairs - Score were [electron icaaman] signed by Mauro Rodriguez PT on WedMar 22 2018 16:41:31 T-0500 (Central Daylight Time)
--- NOTE | 2018-03-22 19:30 | R.PN ---
ENCOUNTER DATE AND TIME: 03/22/2018 18:25 (CDT) NAME DOC HINKLE DATE OF : 1945 DATE OF ADMISSION: 03/20/2018 11:23 (CDT) RIGHT HIP FEMORAL NECK FRACTURECHIEF COMPLAINT: Right hip fracture SUBJECTIVE: Pt denied any Shortness of Breath. Pt denied any depression. Ambulated 480' with contact guard assistance using a rolling walker. Wheelchair mobility 300 feet x 2 with standby assistance, with rolling walker 90 feet x 3 with contac t guard assistance. VITAL SIGNS Temperature: 98.2 F SBP/DBP: 157/77 Pulse: 113 Resp: 16 MEDICATION ALLERGIES: GUAIFENESIN PENICILLIN Sulfamethoxazole TRIMETHOPRIM ENVIRONMENTAL ALLERGIES: None Known - Substance Allergies None Known - Other Allergies None Known NURSING: - Shower allowing shower - Skin care per protocol PRECAUTIONS: - Weight Bearing Precaution WBAT right LE - Fall Precaution Bed and chair alarm ACTIVITIES OOB only with supervision THERAPIES: - Occupational Therapy Evaluate and Treat. - Physical Therapy Evaluate and Treat. PHYSICAL EXAM - Gen Alert and awake Lying in bed No apparent distress Oriented to: person, time, and place - Skin No skin breakdown. Normacephalic - Eyes No abnormalities - ENMT No abnormalities - Neck No abnormalities - CVS RRR - Chest Clear - Abd Soft - GI + bowel sound Deferred - No abnormalities - Ext Right hip surgical site has good hemostasis. - MSK 4+/5 weakness in right lower extremity - Neuro 4/5 strength right lower extremity. - Psych No abnormalities ASSESSMENT: Pt. is a 72 yo Right-handed white female.Her impairment category is Orthopaedic Disorders 08 - Femur (Shaft) Fracture (08.2).Pre-morbidly, Pt. was independent/mod-I in Social Cognition, Self-Care, [place] motion, Sphincter Control, Transfers Control, and Communication; and she had good Sphincter Control.C urrently, she has deficits of Balance, Locomotion, Endurance, Safety Awareness, Transfers Control, an d Self-Care.Pt. is now referred to [facility] for acute in-patient rehabilitat ion in order to maximize patient's functional independence in activities of daily living, strength, R OM, and mobility.- Rehab Goal Patient has realistic goal of being discharged at assistance level 6-Sherrie to reside at Home with Fam syed/Relatives. MDM/PLAN: - Diet Type Continue Regular - Physical Therapy Decreased range of motion - to improve, our physical therapists will perform initial evaluation of p t's status upon admission and devise an individualized program for increasing patient's Range of [place] on. Gait dysfunction - to improve, our physical therapists will perform initial evaluation of pt's statu s upon admission and devise an individualized program for Gait Training, and Wheel Chair mobility Inability to transfer - to improve, our physical therapists will perform initial evaluation of pt's status upon admission and devise an individualized program for Bed mobility Need for home safety evaluation - to improve, our physical therapists will perform initial evaluatio n of pt's status upon admission and devise an individualized program for Home Evaluation Need in caregiver upon discharge - to improve, our physical therapists will perform initial evaluati on of pt's status upon admission and devise an individualized program for Caregiver Training New precaution - to improve, our physical therapists will perform initial evaluation of pt's status upon admission and devise an individualized program for Patient precaution education Poor balance - to improve, our physical therapists will perform initial evaluation of pt's status up on admission and devise an individualized program for Balance Training Poor endurance - to improve, our physical therapists will perform initial evaluation of pt's status upon admission and devise an individualized program for Endurance Training Weakness - to improve, our physical therapists will perform initial evaluation of pt's status upon a dmission and devise an individualized program for Aquatic Therapy, Neuromuscular Reeducation, and Str engthening Achieving independence - to improve, our physical therapists will perform initial evaluation of pt's status upon admission and devise an individualized program for Community Reintegration Activities - Diet - Liquid Texture Continue Regular - Tube Feed Continue N/A - Weight Bearing Precaution WBAT right LE - Fall Precaution Bed and chair alarm - Skin care per protocol - Diet - Solid Texture Continue Regular - Shower allowing shower - Occupational Therapy ADL deficits - to improve, our occupation therapists will perform initial evaluation of pt's status upon admission and devise an individualized program for Bathing, Bed mobility, Community Reintegratio n, Cooking, Dressing, Eating, Fine Motor Skills, Grooming, Homemaking, Kitchen Mobility, Laundry, Pat ient Education, Safety Awareness, Splinting - Positioning, Transfers(Toilet, Tub, Shower), and Wheel Chair Management Need for home care assistant - to improve, our occupation therapists will perform initial evaluation of pt's status upon admission and devise an individualized program for Caregiver Training Weakness - to improve, our occupation therapists will perform initial evaluation of pt's status upon admission and devise an individualized program for Aquatic Therapy, Balance, Endurance, UE ROM, and UE strengthening FUNCTIONAL STATUS: UPDATED AT WEEKLY TEAM CONFERENCE - Bladder Same accident frequency: 7-Ind - No accidents in the past 7 days - Bowel Same accident frequency: 7-Ind - No accidents in the past 7 days - Walking Same score based on distance walked: 1(<=50ft) - Wheelchair Same score based on distance traveled: 0(N/A) FUNCTIONAL STATUS: - Self-Care A. Eating Ind B. Grooming Sherrie C. Bathing Dot D. Dressing - Upper Dot E. Dressing - Lower Dot F. Toileting Dto - Sphincter Control G: Bladder control Ind H: Bowel control Ind - Transfers Control I. Bed/Chair/Wheelchair maxA J. Toilet maxA K. Tub/Shower ADNO - Locomotion L. Walk/Wheelchair (C) maxA L. Walk/Wheelchair (W) maxA M. Stairs ADNO - Communication N. Comprehension (B) Ind O. Expression (B) Ind - Social Cognition P. Social Interaction Ind Q. Problem Solving Ind R. Memory Ind - Endurance Fair - Balance Fair - Safety Awareness Fair CURRENT FUNC. DEFICITS: Balance, Locomotion, Endurance, Safety Awareness, Transfers Control, and Self-Care SIGNATURE PANEL: (CDT)
--- NOTE | 2018-03-23 04:20 | FAST ---
SHIFT START DATE/TIME: 03/22/2018 19:00 (CDT) SHIFT END DATE/TIME: 03/23/2018 07:00 (CDT) NAME DOC HINKLE DATE OF : 1945 DATE OF ADMISSION: 03/20/2018 11:23 (CDT) PHONE: AGE: 72 [facility]# [id number] GENDER: Female ENCOUNTER PHYSICIAN: Dr. Joao Robles M.D. ADMISSION DIAGNOSIS: - Orthopaedic Disorders 08 - Femur (Shaft) Fracture (08.2) RIGHT HIP FEMORAL NECK FRACTURE. EATING: Activity did not occur on this shift EATING - SCORE: 0-UNK GROOMING: Activity did not occur on this shift GROOMING - SCORE: 0-UNK BATHING: Activity did not occur on this shift BATHING - SCORE: 0-UNK DRESSING - UPPER BODY: Activity did not occur on this shift ARTICLES SCORE Total number of steps: 0 DRESSING - UPPER BODY - SCORE: 0-UNK DRESSING - LOWER BODY: Activity did not occur on this shift ARTICLES SCORE Total number of steps: 0 DRESSING - LOWER BODY - SCORE: 0-UNK TOILETING: TOILETING - STEP 1: Does the patient require assistance with toileting? Yes. TOILETING - STEP 2: Does the patient require the assistance of a helper? Yes. TOILETING - STEP 3: How much assistance does the patient require from the helper? Only supervision TOILETING - SCORE: 5-SUP BLADDER MANAGEMENT: BLADDER MANAGEMENT - STEP 1: Does the patient control the bladder completely and intentionally without equipment or devices or med ications, and is always continent? No. BLADDER MANAGEMENT - STEP 2: Does the patient require the assistance of a helper? Yes. BLADDER MANAGEMENT - STEP 3: How much assistance does the patient require from the helper? Only supervision, stand-by, cuing, or c oaxing BLADDER MANAGEMENT - SCORE: 5-SUP BLADDER MANAGEMENT - FREQUENCY OF ACCIDENTS: BLADDER MANAGEMENT(FA) - STEP 1: How many accidents has the patient had during the current shift? 0 BOWEL MANAGEMENT: Activity did not occur on this shift BOWEL MANAGEMENT - SCORE: 7-IND BOWEL MANAGEMENT - FREQUENCY OF ACCIDENTS: BOWEL MANAGEMENT(FA) - STEP 1: How many accidents has the patient had during the current shift? 0 TRANSFERS: BED, CHAIR, WHEELCHAIR: TRANSFERS: BED, CHAIR, WHEELCHAIR - STEP 1: Does the patient require assistance with bed, chair, or wheelchair transfers? Yes. TRANSFERS: BED, CHAIR, WHEELCHAIR - STEP 2: Does the patient require the assistance of a helper? Yes. TRANSFERS: BED, CHAIR, WHEELCHAIR - STEP 3: How much assistance does the patient require from the helper? Lifting of the legs TRANSFERS: BED, CHAIR, WHEELCHAIR - STEP 4: How many legs does the patient require the helper to lift? one leg TRANSFERS: BED, CHAIR, WHEELCHAIR - SCORE: 4-MIN TRANSFERS: TOILET: TRANSFERS: TOILET - STEP 1: Does the patient require assistance with toilet transfers? Yes. TRANSFERS: TOILET - STEP 2: Does the patient require the assistance of a helper? Yes. TRANSFERS: TOILET - STEP 3: How much assistance does the patient require from the helper? Only supervision, cuing, coaxing, OR he lp to set out transfer equipment or to lock brakes and/or lift foot rests TRANSFERS: TOILET - SCORE: 5-SUP TRANSFERS: SHOWER: Activity did not occur on this shift TRANSFERS: SHOWER - SCORE: 0-UNK TRANSFERS: TUB: Activity did not occur on this shift TRANSFERS: TUB - SCORE: 0-UNK LOCOMOTION: WALK: Activity did not occur on this shift LOCOMOTION: WALK - SCORE: 0-UNK LOCOMOTION: WHEELCHAIR: Activity did not occur on this shift LOCOMOTION: WHEELCHAIR - SCORE: 0-UNK COMPREHENSION: COMPREHENSION: TYPE: Both COMPREHENSION - STEP 1: Does the patient require help to understand complex and abstract ideas (such as current events, finan neal, discharge planning, medical issues, relationships, etc)? No. COMPREHENSION - STEP 2: Does the patient need extra time, require an assistive device (such as glasses, hearing aids, or an a ugmentative communication system), OR does s/he have mild difficulty expressing complex and abstract ideas (including mild dysarthria or mild word-finding problems)? Yes. COMPREHENSION - SCORE: 6-CADEN EXPRESSION EXPRESSION: TYPE: Both EXPRESSION - STEP 1: Does the patient require help expressing complex and abstract ideas (such as current events, finances , discharge planning, medical issues, relationships, etc)? Yes. EXPRESSION - STEP 2: Does the patient require help to express basic necessities or ideas (such as hunger, thirst, sleep, s afety, daily schedule, room location, or discomfort) half or more of the time? No. EXPRESSION - STEP 3: How often does the patient need help to express directions and conversation about basic needs? Less t silvestre 10% of the time EXPRESSION - SCORE: 5-SUP SOCIAL INTERACTION: SOCIAL INTERACTION - STEP 1: Does the patient require a helper to interact with others in social and therapeutic situations? No. SOCIAL INTERACTION - STEP 2: Does the patient need extra time in social situations, OR does s/he interact with staff, other patien ts, and family members ONLY in structured environments, OR does s/he require medication for social in teraction? No. SOCIAL INTERACTION - SCORE: 7-IND PROBLEM SOLVING: PROBLEM SOLVING - STEP 1: Does the patient need help to solve complex problems such as managing a checking account or confronti ng interpersonal problems? Yes. PROBLEM SOLVING - STEP 2: Does the patient solve basic routine problems half or more of the time? Yes. PROBLEM SOLVING - STEP 3: How often does the patient need help to solve basic routine problems? Less than 10% of the time PROBLEM SOLVING - SCORE: 5-SUP MEMORY: MEMORY - STEP 1: Does the patient need help to remember frequently encountered people, daily routines, and executing r equests? No. MEMORY - STEP 2: Does the patient have slight difficulty recognizing frequently encountered people, daily routines, or executing requests without the need for repetition or using self-initiated or environmental cues to remember? Yes. MEMORY - SCORE: 6-CADEN SIGNATURE PANEL: The following modified sections: Eating - Score, Grooming - Score, Bathing - Score, Dressing - Upper Body - Score, Dressing - Lower Body - Score, Toileting - Score, Bladder Management - Score, Bowel Man agement - Score, Transfers: Bed, Chair, Wheelchair - Score, Transfers: Toilet - Score, Transfers: Coby wer - Score, Transfers: Tub - Score, Locomotion: Walk - Score, Locomotion: Wheelchair - Score, Compre hension - Score, Expression - Score, Social Interaction - Score, Problem Solving - Score, Memory - Sc ore were [electronically] signed by Luz Hein RN on WedMar 23 2018 03:20:22 GMT-0500 (Centra l Daylight Time)
[2018-03-23] MEDS: ACETAMINOPHEN 500 MG TAB PO PRN ×2 (05:13→14:10)
[2018-03-23] MEDS: LOSARTAN POTASSIUM 50 MG TABLET PO SCH (08:00)
[2018-03-23] MEDS: BISOPROLOL 5 MG TABLET PO SCH (08:00)
[2018-03-23] MEDS: ENOXAPARIN 30 MG/0.3 ML SQ SCH (08:16)
[2018-03-23] MEDS: DOCUSATE NA 100 MG CAP PO SCH (08:17)
[2018-03-23] MEDS: CARBAMAZEPINE 200 MG TAB PO SCH ×3 (08:18→20:29)
[2018-03-23] MEDS: GABAPENTIN 100 MG CAP PO SCH ×3 (08:18→20:29)
[2018-03-23] MEDS: FERROUS SULFATE 325 MG TAB PO SCH (08:18)
[2018-03-23] MEDS: FE SULF/FA/VIT B COMP & C TAB PO SCH (08:18)
[2018-03-23] MEDS: PROMOD 30 ML DOSE PO SCH ×2 (08:19→20:30)
[2018-03-23] MEDS: TRIAMCINOLONE ACETONIDE IH SCH (08:44)
--- NOTE | 2018-03-23 10:55 | RAD REPORT ---
EXAM DESCRIPTION: VASExtremity Venous [facility] Ltd03/23/2018 10:31 am CLINICAL HISTORY: Right leg pain and swelling. COMPARISON: None. FINDINGS: Right common femoral, superficial femoral are compressible and demonstrate augmentation. D oppler demonstrates good flow. Echogenic material consistent with acute thrombus is present within the right popliteal and right pos terior tibial veins IMPRESSION: Acute thrombus within the right popliteal and right posterior tibial veins. The exam was discussed with Dr. Mendiola 10:50 a.m. 03/23/2018
--- NOTE | 2018-03-23 12:02 | FAST ---
SHIFT START DATE/TIME: 03/23/2018 07:00 (CDT) SHIFT END DATE/TIME: 03/23/2018 19:00 (CDT) NAME DOC HINKLE DATE OF : 1945 DATE OF ADMISSION: 03/20/2018 11:23 (CDT) PHONE: AGE: 72 [facility]# [id number] GENDER: Female ENCOUNTER PHYSICIAN: Dr. Joao Robles M.D. ADMISSION DIAGNOSIS: - Orthopaedic Disorders 08 - Femur (Shaft) Fracture (08.2) RIGHT HIP FEMORAL NECK FRACTURE. EATING: EATING - STEP 1: Does the patient require assistance when eating? Yes. EATING - STEP 2: Does the patient require the assistance of a helper? No, patient only requires an assistive device, O R s/he takes more than reasonable time to eat, OR there is a safety concern, OR s/he requires modifie d food consistency EATING - SCORE: 6-CADEN GROOMING: Activity did not occur on this shift GROOMING - SCORE: 0-UNK BATHING: Activity did not occur on this shift BATHING - SCORE: 0-UNK DRESSING - UPPER BODY: Activity did not occur on this shift ARTICLES SCORE Total number of steps: 0 DRESSING - UPPER BODY - SCORE: 0-UNK DRESSING - LOWER BODY: Activity did not occur on this shift ARTICLES SCORE Total number of steps: 0 DRESSING - LOWER BODY - SCORE: 0-UNK TOILETING: TOILETING - STEP 1: Does the patient require assistance with toileting? Yes. TOILETING - STEP 2: Does the patient require the assistance of a helper? Yes. TOILETING - STEP 3: How much assistance does the patient require from the helper? Hands-on assistance from the helper TOILETING - STEP 4: Of the 3 tasks: 1) Adjusting clothing prior to use, 2) Cleansing of perineal area, 3) Adjusting clot ruperto after use; How many tasks does the patient perform WITHOUT assistance of the helper? Three tasks with steadying assistance from the helper TOILETING - SCORE: 4-MIN BLADDER MANAGEMENT: BLADDER MANAGEMENT - STEP 1: Does the patient control the bladder completely and intentionally without equipment or devices or med ications, and is always continent? No. BLADDER MANAGEMENT - STEP 2: Does the patient require the assistance of a helper? No, patient requires and independently uses an a ssistive device, such as a urinal, bedpan, bedside commode, catheter, absorbent pad, or collecting de vice BLADDER MANAGEMENT - SCORE: 6-CADEN BOWEL MANAGEMENT: Activity did not occur on this shift BOWEL MANAGEMENT - SCORE: 7-IND TRANSFERS: BED, CHAIR, WHEELCHAIR: TRANSFERS: BED, CHAIR, WHEELCHAIR - STEP 1: Does the patient require assistance with bed, chair, or wheelchair transfers? Yes. TRANSFERS: BED, CHAIR, WHEELCHAIR - STEP 2: Does the patient require the assistance of a helper? Yes. TRANSFERS: BED, CHAIR, WHEELCHAIR - STEP 3: How much assistance does the patient require from the helper? Steadying/guiding assistance TRANSFERS: BED, CHAIR, WHEELCHAIR - SCORE: 4-MIN TRANSFERS: TOILET: TRANSFERS: TOILET - STEP 1: Does the patient require assistance with toilet transfers? Yes. TRANSFERS: TOILET - STEP 2: Does the patient require the assistance of a helper? Yes. TRANSFERS: TOILET - STEP 3: How much assistance does the patient require from the helper? Only supervision, cuing, coaxing, OR he lp to set out transfer equipment or to lock brakes and/or lift foot rests TRANSFERS: TOILET - SCORE: 5-SUP TRANSFERS: SHOWER: Activity did not occur on this shift TRANSFERS: SHOWER - SCORE: 0-UNK TRANSFERS: TUB: Activity did not occur on this shift TRANSFERS: TUB - SCORE: 0-UNK LOCOMOTION: WALK: Activity did not occur on this shift LOCOMOTION: WALK - SCORE: 0-UNK LOCOMOTION: WHEELCHAIR: Activity did not occur on this shift LOCOMOTION: WHEELCHAIR - SCORE: 0-UNK COMPREHENSION: COMPREHENSION - SCORE: 0-UNK EXPRESSION EXPRESSION - SCORE: 0-UNK SOCIAL INTERACTION: SOCIAL INTERACTION - SCORE: 0-UNK PROBLEM SOLVING: PROBLEM SOLVING - SCORE: 0-UNK MEMORY: MEMORY - SCORE: 0-UNK SIGNATURE PANEL: The following modified sections: Eating - Score, Grooming - Score, Bathing - Score, Dressing - Upper Body - Score, Dressing - Lower Body - Score, Toileting - Score, Bladder Management - Score, Bowel Man agement - Score, Transfers: Bed, Chair, Wheelchair - Score, Transfers: Toilet - Score, Transfers: Coby wer - Score, Transfers: Tub - Score, Locomotion: Walk - Score, Locomotion: Wheelchair - Score, Compre hension - Score, Expression - Score, Social Interaction - Score, Problem Solving - Score, Memory - Sc ore were [electronically] signed by Tigre Wilson on WedMar 23 2018 11:03:00 GMT-0500 (Central Daylight Time)
--- NOTE | 2018-03-23 16:23 | FAST ---
ENCOUNTER DATE AND TIME: 03/23/2018 08:00 (CDT) NAME DOC HINKLE DATE OF : 1945 DATE OF ADMISSION: 03/20/2018 11:23 (CDT) PHONE: AGE: 72 N# [id number] GENDER: Female ENCOUNTER PHYSICIAN: Dr. Joao Robles M.D. ADMISSION DIAGNOSIS: - Orthopaedic Disorders 08 - Femur (Shaft) Fracture (08.2) RIGHT HIP FEMORAL NECK FRACTURE. EATING: Activity did not occur on this shift EATING - SCORE: 0-UNK GROOMING: Activity did not occur on this shift GROOMING - SCORE: 0-UNK BATHING: Activity did not occur on this shift BATHING - SCORE: 0-UNK DRESSING - UPPER BODY: Activity did not occur on this shift Patient is not dressing in public clothing ARTICLES SCORE Total number of steps: 0 DRESSING - UPPER BODY - SCORE: 0-UNK DRESSING - LOWER BODY: Activity did not occur on this shift Patient is not dressing in public clothing ARTICLES SCORE Total number of steps: 0 DRESSING - LOWER BODY - SCORE: 0-UNK TOILETING: Activity did not occur on this shift TOILETING - SCORE: 0-UNK BLADDER MANAGEMENT: Activity did not occur on this shift BLADDER MANAGEMENT - SCORE: 7-IND BOWEL MANAGEMENT: Activity did not occur on this shift BOWEL MANAGEMENT - SCORE: 7-IND TRANSFERS: BED, CHAIR, WHEELCHAIR: TRANSFERS: BED, CHAIR, WHEELCHAIR - STEP 1: Does the patient require assistance with bed, chair, or wheelchair transfers? Yes. TRANSFERS: BED, CHAIR, WHEELCHAIR - STEP 2: Does the patient require the assistance of a helper? Yes. TRANSFERS: BED, CHAIR, WHEELCHAIR - STEP 3: How much assistance does the patient require from the helper? Only supervision TRANSFERS: BED, CHAIR, WHEELCHAIR - SCORE: 5-SUP TRANSFERS: TOILET: Activity did not occur on this shift TRANSFERS: TOILET - SCORE: 0-UNK TRANSFERS: SHOWER: Activity did not occur on this shift TRANSFERS: SHOWER - SCORE: 0-UNK TRANSFERS: TUB: Activity did not occur on this shift TRANSFERS: TUB - SCORE: 0-UNK LOCOMOTION: WALK: LOCOMOTION: WALK - STEP 1: Does the patient need help to walk 150 feet? Yes. LOCOMOTION: WALK - STEP 2: How much assistance does the patient require to walk a minimum of 150 feet? Only supervision, cuing, or coaxing LOCOMOTION: WALK - SCORE: 5-SUP LOCOMOTION: WHEELCHAIR: LOCOMOTION: WHEELCHAIR - STEP 1: Does the patient need help to go 150 feet in a wheelchair? Yes. LOCOMOTION: WHEELCHAIR - STEP 2: How much assistance does the patient need from the helper? Only supervision, cuing, or coaxing LOCOMOTION: WHEELCHAIR - SCORE: 5-SUP LOCOMOTION: STAIRS: Activity did not occur on this shift LOCOMOTION: STAIRS - SCORE: 0-UNK COMPREHENSION: COMPREHENSION - SCORE: 0-UNK EXPRESSION EXPRESSION - SCORE: 0-UNK SOCIAL INTERACTION: SOCIAL INTERACTION - SCORE: 0-UNK PROBLEM SOLVING: PROBLEM SOLVING - SCORE: 0-UNK MEMORY: MEMORY - SCORE: 0-UNK SIGNATURE PANEL: The following modified sections: Transfers: Bed, Chair, Wheelchair - Score, Transfers: Toilet - Score , Locomotion: Walk - Score, Locomotion: Wheelchair - Score, Locomotion: Stairs - Score were [[email or web address] [email or web address]] signed by Angel Stewart PTA on WedMar 23 2018 15:23:24 T-0500 (Central Daylight Time)
[2018-03-23] MEDS: APIXABAN 5 MG TABLET PO SCH (20:30)
--- NOTE | 2018-03-24 03:05 | FAST ---
SHIFT START DATE/TIME: 03/23/2018 19:00 (CDT) SHIFT END DATE/TIME: 03/24/2018 07:00 (CDT) NAME DOC HINKLE DATE OF : 1945 DATE OF ADMISSION: 03/20/2018 11:23 (CDT) PHONE: AGE: 72 N# [id number] GENDER: Female ENCOUNTER PHYSICIAN: Dr. Joao Robles M.D. ADMISSION DIAGNOSIS: - Orthopaedic Disorders 08 - Femur (Shaft) Fracture (08.2) RIGHT HIP FEMORAL NECK FRACTURE. EATING: Activity did not occur on this shift EATING - SCORE: 0-UNK GROOMING: Activity did not occur on this shift GROOMING - SCORE: 0-UNK BATHING: Activity did not occur on this shift BATHING - SCORE: 0-UNK DRESSING - UPPER BODY: Patient is not dressing in public clothing ARTICLES SCORE Total number of steps: 0 DRESSING - UPPER BODY - SCORE: 0-UNK DRESSING - LOWER BODY: Patient is not dressing in public clothing ARTICLES SCORE Total number of steps: 0 DRESSING - LOWER BODY - SCORE: 0-UNK TOILETING: Activity did not occur on this shift TOILETING - SCORE: 0-UNK BLADDER MANAGEMENT: Carr removes incontinent device (Depends, pull ups, etc.); cleans the patient after accident / inco ntinent episode; and, applies new incontinent device. BLADDER MANAGEMENT - SCORE: 1-DEP BOWEL MANAGEMENT: Activity did not occur on this shift BOWEL MANAGEMENT - SCORE: 7-IND TRANSFERS: BED, CHAIR, WHEELCHAIR: TRANSFERS: BED, CHAIR, WHEELCHAIR - STEP 1: Does the patient require assistance with bed, chair, or wheelchair transfers? Yes. TRANSFERS: BED, CHAIR, WHEELCHAIR - STEP 2: Does the patient require the assistance of a helper? Yes. TRANSFERS: BED, CHAIR, WHEELCHAIR - STEP 3: How much assistance does the patient require from the helper? Lifting of the legs TRANSFERS: BED, CHAIR, WHEELCHAIR - STEP 4: How many legs does the patient require the helper to lift? both legs TRANSFERS: BED, CHAIR, WHEELCHAIR - SCORE: 3-MOD TRANSFERS: TOILET: TRANSFERS: TOILET - STEP 1: Does the patient require assistance with toilet transfers? Yes. TRANSFERS: TOILET - STEP 2: Does the patient require the assistance of a helper? Yes. TRANSFERS: TOILET - STEP 3: How much assistance does the patient require from the helper? Patient performs half or more of the tr ansferring tasks TRANSFERS: TOILET - STEP 4: Does the patient need only incidental help such as contact guard or steadying during toilet transfer? Yes. TRANSFERS: TOILET - SCORE: 4-MIN TRANSFERS: SHOWER: Activity did not occur on this shift TRANSFERS: SHOWER - SCORE: 0-UNK TRANSFERS: TUB: Activity did not occur on this shift TRANSFERS: TUB - SCORE: 0-UNK LOCOMOTION: WALK: Activity did not occur on this shift LOCOMOTION: WALK - SCORE: 0-UNK LOCOMOTION: WHEELCHAIR: Activity did not occur on this shift LOCOMOTION: WHEELCHAIR - SCORE: 0-UNK COMPREHENSION: COMPREHENSION - STEP 1: Does the patient require help to understand complex and abstract ideas (such as current events, finan neal, discharge planning, medical issues, relationships, etc)? No. COMPREHENSION - STEP 2: Does the patient need extra time, require an assistive device (such as glasses, hearing aids, or an a ugmentative communication system), OR does s/he have mild difficulty expressing complex and abstract ideas (including mild dysarthria or mild word-finding problems)? Yes. COMPREHENSION - SCORE: 6-CADEN EXPRESSION EXPRESSION - STEP 1: Does the patient require help expressing complex and abstract ideas (such as current events, finances , discharge planning, medical issues, relationships, etc)? No. EXPRESSION - STEP 2: Does the patient need extra time, require an assistive device (such as augmentive communication syste m or a communication board), OR does s/he have mild difficulty expressing complex and abstract ideas (including mild dysarthria or mild word-find problems)? No. EXPRESSION - SCORE: 7-IND SOCIAL INTERACTION: SOCIAL INTERACTION - STEP 1: Does the patient require a helper to interact with others in social and therapeutic situations? No. SOCIAL INTERACTION - STEP 2: Does the patient need extra time in social situations, OR does s/he interact with staff, other patien ts, and family members ONLY in structured environments, OR does s/he require medication for social in teraction? No. SOCIAL INTERACTION - SCORE: 7-IND PROBLEM SOLVING: PROBLEM SOLVING - STEP 1: Does the patient need help to solve complex problems such as managing a checking account or confronti ng interpersonal problems? No. PROBLEM SOLVING - STEP 2: Does the patient require extra time to make decisions or solve problems, OR does s/he have slight dif ficulty reading, initiating, or self-correcting in unfamiliar situations? No. PROBLEM SOLVING - SCORE: 7-IND MEMORY: MEMORY - STEP 1: Does the patient need help to remember frequently encountered people, daily routines, and executing r equests? No. MEMORY - STEP 2: Does the patient have slight difficulty recognizing frequently encountered people, daily routines, or executing requests without the need for repetition or using self-initiated or environmental cues to remember? No. MEMORY - SCORE: 7-IND SIGNATURE PANEL: The following modified sections: Eating - Score, Grooming - Score, Bathing - Score, Dressing - Upper Body - Score, Dressing - Lower Body - Score, Toileting - Score, Bladder Management - Score, Bowel Man agement - Score, Transfers: Bed, Chair, Wheelchair - Score, Transfers: Toilet - Score, Transfers: Coby wer - Score, Transfers: Tub - Score, Locomotion: Walk - Score, Locomotion: Wheelchair - Score, Compre hension - Score, Expression - Score, Social Interaction - Score, Problem Solving - Score, Memory - Sc ore were [electronically] signed by Teresa Bo RN on WedMar 24 2018 02:06:09 [facility]-[id number] (Count includes the [facility] Time)
[2018-03-24 05:56] LABS: Absolute Lymphocytes (CBC) 1.2 K/uL (0.7-4.9); Absolute Neutrophil 6.9 K/uL (1.8-8.0); Basophils % 0.6 % (0-1.3); Eosinophils % 1.8 % (0-4.4); Hematocrit 26.8 % (36.0-45.0); Lymphocytes % 13.2 % (15.3-44.8); MCH 27.6 pg (27.0-35.0); MPV 8.1 fL (7.6-11.3); Monocytes % 10.9 % (3.3-12.3); RBC Red Blood Cell Count 3.19 M/uL (3.86-4.86)
[2018-03-24 06:14] LABS: Albumin 2.5 g/dL (3.4-5.0); Potassium 3.1 mmol/L (3.5-5.1); Prealbumin 13.3 mg/dL (20-40)
[2018-03-24] MEDS: TRIAMCINOLONE ACETONIDE IH SCH (08:00)
[2018-03-24] MEDS: GABAPENTIN 100 MG CAP PO SCH ×3 (08:20→20:18)
[2018-03-24] MEDS: DOCUSATE NA 100 MG CAP PO SCH (08:20)
[2018-03-24] MEDS: APIXABAN 5 MG TABLET PO SCH (08:20)
[2018-03-24] MEDS: FE SULF/FA/VIT B COMP & C TAB PO SCH (08:20)
[2018-03-24] MEDS: BISOPROLOL 5 MG TABLET PO SCH (08:21)
[2018-03-24] MEDS: ACETAMINOPHEN 500 MG TAB PO PRN ×2 (08:21→13:32)
[2018-03-24] MEDS: LOSARTAN POTASSIUM 50 MG TABLET PO SCH (08:21)
[2018-03-24] MEDS: FERROUS SULFATE 325 MG TAB PO SCH (08:21)
[2018-03-24] MEDS: CARBAMAZEPINE 200 MG TAB PO SCH ×3 (08:22→20:18)
[2018-03-24] MEDS: PROMOD 30 ML DOSE PO SCH ×2 (08:23→20:17)
[2018-03-24] MEDS: SPIRONOLACTONE 25 MG TABLET PO SCH (09:35)
[2018-03-24] MEDS: ENOXAPARIN 100 MG/ML SYR SQ SCH ×2 (09:39→20:18)
--- NOTE | 2018-03-24 12:54 | P.CNS ---
Date of Consult: 03/24/18 Reason for Consult: Right leg DVT Chief Complaint: DVT History of Present Illness: Patient is a pleasant 72-year-old lady who just recently had her right hip surgery developed acute swelling of her right leg and was found to have an acute DVT patient was transferred from the acute to rehab currently had leg was all swollen there are and on admission to the rehab floor it had decreased in size patient started complaining of pain in the right leg and Doppler shows acute DVT even though she was on DVT prophylaxis patient still has some discomfort elevate her legs no prior history of thromboembolism denies any shortness of breath or chest pain Allergies guaifenesin Allergy (Verified 11/18/17 17:48) Nausea/Vomiting Penicillins Allergy (Verified 11/18/17 17:48) Itching sulfamethoxazole [From Bactrim] Allergy (Verified 11/18/17 17:48) Nausea/Vomiting trimethoprim [From Bactrim] Allergy (Verified 11/18/17 17:48) Nausea/Vomiting Home Medications: Bisoprolol Fumarate [Zebeta*] 5 mg PO DAILY 03/14/18 Carbamazepine 100 mg PO TID 03/14/18 Losartan Potassium [Cozaar] 100 mg PO DAILY 03/14/18 Triamcinolone Acetonide [Nasacort] 2 sprays IH DAILY 03/15/18 Enoxaparin Sodium [Lovenox 30 MG INJ*] 30 mg SQ Q12HR #1 syr 03/18/18 Gabapentin [Neurontin*] 100 mg PO TID #1 cap 03/18/18 - Past Medical/Surgical History Diabetic: No -: HTN -: trigeminal naurialgia -: skin cancer -: brain surgery/screws -: cesearian -: radial rhiesotomy -: right breast beningn cyst removal - Family History Mother Medical History: Hypertension, Cancer Father Medical History: Stroke, Cancer - Social History Alcohol use: No CD- Drugs: No Caffeine use: Yes Place of Residence: Home Review of Systems 10-point ROS is otherwise unremarkable Physical Examination Temp Pulse Resp BP Pulse Ox 98.0 F 104 H 18 171/80 H 95 03/24/18 08:00 03/24/18 09:35 03/24/18 08:00 03/24/18 09:35 03/24/18 08:00 General: Alert, Oriented x3 HEENT: Atraumatic Neck: Supple Respiratory: Clear to auscultation bilaterally Cardiovascular: Normal S1 S2, Edema (3+ edema of the right leg) Gastrointestinal: Normal bowel sounds, Soft and benign Musculoskeletal: No clubbing, No swelling Laboratory Data (last 24 hrs) 03/24/18 05:24: WBC 9.4 D, Hgb 8.8 L, Hct 26.8 L, Plt Count 366 D 03/24/18 05:24: Sodium 139, Potassium 3.1 L, BUN 16, Creatinine 0.70, Glucose 114 H - Problems (1) Dvt femoral (deep venous thrombosis) Current Visit: Yes Status: Acute Plan: Patient is 72 years of age admitted with acute DVT after hip surgery on 03/16 despite being on prophylaxis for DVT her leg swelling is declining although she has some discomfort I suggest using regular compression stockings change to Lovenox for 1 or 2 days until a swelling has declined and then I agree with Eliquis 10 mg twice a day for 7 days and 5 mg twice a day for a total of 3 months longer if patient is not ambulating patient is mildly anemic little hypokalemic of order some spironolactone which will probably help reduce swelling blood pressure is elevated chest x-ray is clear daily room air pulse ox Qualifiers: Laterality: right
--- NOTE | 2018-03-24 13:06 | P.PN ---
Subjective Date of Service: 03/23/18 Chief Complaint: RIGHT LEG PAIN Subjective: C/O voiced (TODAY SHE SAIDSHE HAD PAIN.) Review of Systems 10-point ROS is otherwise unremarkable General: Weakness, Malaise Cardiovascular: As per HPI Physical Examination - Vital Signs Temperature: 98.0 F Blood Pressure: 171/80 Pulse: 104 Respirations: 18 Pulse Ox (%): 95 - Physical Exam General: Alert, Mild distress HEENT: Atraumatic, PERRLA, EOMI Neck: Supple, JVD not distended Respiratory: Clear to auscultation bilaterally, Normal air movement Cardiovascular: Regular rate/rhythm, Normal S1 S2 Gastrointestinal: Normal bowel sounds, No tenderness Musculoskeletal: Tenderness (RIHGT LEG AND THIGH.) Integumentary: No rashes Neurological: Normal speech, Normal tone, Normal affect Lymphatics: No axilla or inguinal lymphadenopathy - Studies Laboratory Data (last 24 hrs) 03/24/18 05:24: WBC 9.4 D, Hgb 8.8 L, Hct 26.8 L, Plt Count 366 D 03/24/18 05:24: Sodium 139, Potassium 3.1 L, BUN 16, Creatinine 0.70, Glucose 114 H Medications List Reviewed: Yes Assessment And Plan - Current Problems (Diagnosis) (1) HTN (hypertension) Onset Date: 03/22/18 Current Visit: Yes Status: Acute Qualifiers: Hypertension type: essential hypertension Qualified Code(s): I10 - Essential (primary) hypertension (2) Hip fracture, right Onset Date: 03/22/18 Current Visit: Yes Status: Acute Plan: RESUME PT LOW K- FRUIT DAILY CHECK TWICE A WEEK SHE IS NOT ON DIURETICS. Qualifiers: Fracture type: closed (3) Right leg pain Current Visit: Yes Status: Acute Plan: ORDER STAT VENOUS DOPPLER POSITIVE STOPPED LOVENOX STARTED ELIQUIS PO BID 10 MG. STAT.
--- NOTE | 2018-03-24 13:08 | P.PN ---
Subjective Date of Service: 03/24/18 Chief Complaint: RIGHT LEG PAIN Subjective: C/O voiced, Worsening Review of Systems 10-point ROS is otherwise unremarkable Musculoskeletal: Leg Pain Physical Examination - Vital Signs Temperature: 98.0 F Blood Pressure: 171/80 Pulse: 104 Respirations: 18 Pulse Ox (%): 95 - Physical Exam General: Alert, Acute distress, Mild distress, Moderate distress HEENT: Atraumatic, PERRLA, EOMI Neck: Supple, JVD not distended Respiratory: Clear to auscultation bilaterally, Normal air movement Cardiovascular: Regular rate/rhythm, Normal S1 S2 Gastrointestinal: Normal bowel sounds, No tenderness Musculoskeletal: No tenderness Integumentary: No rashes Neurological: Normal speech, Normal tone, Normal affect Lymphatics: No axilla or inguinal lymphadenopathy - Studies Laboratory Data (last 24 hrs) 03/24/18 05:24: WBC 9.4 D, Hgb 8.8 L, Hct 26.8 L, Plt Count 366 D 03/24/18 05:24: Sodium 139, Potassium 3.1 L, BUN 16, Creatinine 0.70, Glucose 114 H Medications List Reviewed: Yes Assessment And Plan - Current Problems (Diagnosis) (1) HTN (hypertension) Onset Date: 03/22/18 Current Visit: Yes Status: Acute Qualifiers: Hypertension type: essential hypertension Qualified Code(s): I10 - Essential (primary) hypertension (2) Hip fracture, right Onset Date: 03/22/18 Current Visit: Yes Status: Acute Plan: RESUME PT LOW K- FRUIT DAILY CHECK TWICE A WEEK SHE IS NOT ON DIURETICS. Qualifiers: Fracture type: closed (3) Right leg pain Current Visit: Yes Status: Acute Plan: ORDER STAT VENOUS DOPPLER POSITIVE STOPPED LOVENOX STARTED ELIQUIS PO BID 10 MG. STAT. (4) Right leg DVT Current Visit: Yes Status: Acute Plan: LOVENOX BID 90 MG WATCH HG DAILY DR. ANN WANTS TO GIVE THIS FOR TWO DAYS. SHE IS IN MORE PAIN THAN YESTERDAY. WILL RESUME ELIQUIS LATER. Qualifiers: Affected thrombotic vein of extremity: popliteal
--- NOTE | 2018-03-24 16:14 | FAST ---
SHIFT START DATE/TIME: 03/24/2018 07:00 (CDT) SHIFT END DATE/TIME: 03/24/2018 19:00 (CDT) NAME DOC HINKLE DATE OF : 1945 DATE OF ADMISSION: 03/20/2018 11:23 (CDT) PHONE: AGE: 72 [facility]# [id number] GENDER: Female ENCOUNTER PHYSICIAN: Dr. Joao Robles M.D. ADMISSION DIAGNOSIS: - Orthopaedic Disorders 08 - Unilateral Hip Fracture (08.11) RIGHT HIP FEMORAL NECK FRACTURE. EATING: EATING - STEP 1: Does the patient require assistance when eating? Yes. EATING - STEP 2: Does the patient require the assistance of a helper? No, patient only requires an assistive device, O R s/he takes more than reasonable time to eat, OR there is a safety concern, OR s/he requires modifie d food consistency EATING - SCORE: 6-CADEN GROOMING: Comb/brush hair Oral care Wash, rinse, and dry face Wash, rinse, and dry hands GROOMING - STEP 1: Does the patient require assistance when grooming? Yes. GROOMING - STEP 2: Does the patient require the assistance of a helper? No. The patient only requires an assistive devic e, OR takes more than reasonable time to groom, OR there is a concern for safety as the patient groom s GROOMING - SCORE: 6-CADEN BATHING: Activity did not occur on this shift BATHING - SCORE: 0-UNK DRESSING - UPPER BODY: Bra (three steps) T-shirt/pullover shirt (four steps) ARTICLES SCORE Total number of steps: 7 DRESSING - UPPER BODY - STEP 1: Does the patient require help when dressing above the waist? Yes. DRESSING - UPPER BODY - STEP 2: Does the patient require the assistance of a helper? Yes. DRESSING - UPPER BODY - STEP 3: Does the helper touch the patient while dressing? No. DRESSING - UPPER BODY - SCORE: 5-SUP DRESSING - LOWER BODY: Elastic waist pants (three steps) ARTICLES SCORE Total number of steps: 3 DRESSING - LOWER BODY - STEP 1: Does the patient require help when dressing below the waist? Yes. DRESSING - LOWER BODY - STEP 2: Does the patient require the assistance of a helper? Yes. DRESSING - LOWER BODY - STEP 3: Does the helper touch the patient while dressing? Yes. DRESSING - LOWER BODY - STEP 4: How many of the total steps does the patient complete on his/her own? 2 DRESSING - LOWER BODY - SCORE: 3-MOD TOILETING: TOILETING - STEP 1: Does the patient require assistance with toileting? Yes. TOILETING - STEP 2: Does the patient require the assistance of a helper? Yes. TOILETING - STEP 3: How much assistance does the patient require from the helper? Hands-on assistance from the helper TOILETING - STEP 4: Of the 3 tasks: 1) Adjusting clothing prior to use, 2) Cleansing of perineal area, 3) Adjusting clot ruperto after use; How many tasks does the patient perform WITHOUT assistance of the helper? Three tasks with steadying assistance from the helper TOILETING - SCORE: 4-MIN BLADDER MANAGEMENT: BLADDER MANAGEMENT - STEP 1: Does the patient control the bladder completely and intentionally without equipment or devices or med ications, and is always continent? No. BLADDER MANAGEMENT - STEP 2: Does the patient require the assistance of a helper? No, patient requires and independently uses an a ssistive device, such as a urinal, bedpan, bedside commode, catheter, absorbent pad, or collecting de vice BLADDER MANAGEMENT - SCORE: 6-CADEN BOWEL MANAGEMENT: BOWEL MANAGEMENT - STEP 1: Does the patient control bowels completely and intentionally without equipment devices or medications AND is always continent? No. BOWEL MANAGEMENT - STEP 2: Does the patient require the assistance of a helper? No, patient requires and manages independently a n assistive device such as a bedpan, bedside commode, absorbent pad, incontinent device, or collectin g device BOWEL MANAGEMENT - SCORE: 6-CADEN TRANSFERS: BED, CHAIR, WHEELCHAIR: TRANSFERS: BED, CHAIR, WHEELCHAIR - STEP 1: Does the patient require assistance with bed, chair, or wheelchair transfers? Yes. TRANSFERS: BED, CHAIR, WHEELCHAIR - STEP 2: Does the patient require the assistance of a helper? Yes. TRANSFERS: BED, CHAIR, WHEELCHAIR - STEP 3: How much assistance does the patient require from the helper? Lifting of the legs TRANSFERS: BED, CHAIR, WHEELCHAIR - STEP 4: How many legs does the patient require the helper to lift? one leg TRANSFERS: BED, CHAIR, WHEELCHAIR - SCORE: 4-MIN TRANSFERS: TOILET: TRANSFERS: TOILET - STEP 1: Does the patient require assistance with toilet transfers? Yes. TRANSFERS: TOILET - STEP 2: Does the patient require the assistance of a helper? Yes. TRANSFERS: TOILET - STEP 3: How much assistance does the patient require from the helper? Patient performs half or more of the tr ansferring tasks TRANSFERS: TOILET - STEP 4: Does the patient need only incidental help such as contact guard or steadying during toilet transfer? Yes. TRANSFERS: TOILET - SCORE: 4-MIN TRANSFERS: SHOWER: Activity did not occur on this shift TRANSFERS: SHOWER - SCORE: 0-UNK TRANSFERS: TUB: Activity did not occur on this shift TRANSFERS: TUB - SCORE: 0-UNK LOCOMOTION: WALK: Activity did not occur on this shift LOCOMOTION: WALK - SCORE: 0-UNK LOCOMOTION: WHEELCHAIR: Activity did not occur on this shift LOCOMOTION: WHEELCHAIR - SCORE: 0-UNK COMPREHENSION: COMPREHENSION - SCORE: 0-UNK EXPRESSION EXPRESSION - SCORE: 0-UNK SOCIAL INTERACTION: SOCIAL INTERACTION - SCORE: 0-UNK PROBLEM SOLVING: PROBLEM SOLVING - SCORE: 0-UNK MEMORY: MEMORY - SCORE: 0-UNK SIGNATURE PANEL: The following modified sections: Eating - Score, Grooming - Score, Dressing - Upper Body - Score, John ssing - Lower Body - Score, Bathing - Score, Toileting - Score, Bladder Management - Score, Bowel Man agement - Score, Transfers: Bed, Chair, Wheelchair - Score, Transfers: Toilet - Score, Transfers: Coby wer - Score, Transfers: Tub - Score, Locomotion: Walk - Score, Locomotion: Wheelchair - Score, Compre hension - Score, Expression - Score, Social Interaction - Score, Problem Solving - Score, Memory - Sc ore were [electronically] signed by Tigre Wilson on WedMar 24 2018 15:15:22 GMT-0500 (Central Daylight Time)
[2018-03-24] MEDS: POTASSIUM CL SA 10 MEQ TAB PO SCH (20:18)
--- NOTE | 2018-03-25 03:12 | FAST ---
SHIFT START DATE/TIME: 03/24/2018 19:00 (CDT) SHIFT END DATE/TIME: 03/25/2018 07:00 (CDT) NAME DOC HINKLE DATE OF : 1945 DATE OF ADMISSION: 03/20/2018 11:23 (CDT) PHONE: AGE: 72 N# [id number] GENDER: Female ENCOUNTER PHYSICIAN: Dr. Joao Robles M.D. ADMISSION DIAGNOSIS: - Orthopaedic Disorders 08 - Unilateral Hip Fracture (08.11) RIGHT HIP FEMORAL NECK FRACTURE. EATING: Activity did not occur on this shift EATING - SCORE: 0-UNK GROOMING: Activity did not occur on this shift GROOMING - SCORE: 0-UNK BATHING: Activity did not occur on this shift BATHING - SCORE: 0-UNK DRESSING - UPPER BODY: Patient is not dressing in public clothing ARTICLES SCORE Total number of steps: 0 DRESSING - UPPER BODY - SCORE: 0-UNK DRESSING - LOWER BODY: Patient is not dressing in public clothing ARTICLES SCORE Total number of steps: 0 DRESSING - LOWER BODY - SCORE: 0-UNK TOILETING: TOILETING - STEP 1: Does the patient require assistance with toileting? Yes. TOILETING - STEP 2: Does the patient require the assistance of a helper? Yes. TOILETING - STEP 3: How much assistance does the patient require from the helper? Hands-on assistance from the helper TOILETING - STEP 4: Of the 3 tasks: 1) Adjusting clothing prior to use, 2) Cleansing of perineal area, 3) Adjusting clot ruperto after use; How many tasks does the patient perform WITHOUT assistance of the helper? Two tasks TOILETING - SCORE: 3-MOD BLADDER MANAGEMENT: [place] removes incontinent device (Depends, pull ups, etc.); cleans the patient after accident / inco ntinent episode; and, applies new incontinent device. BLADDER MANAGEMENT - SCORE: 1-DEP BOWEL MANAGEMENT: Activity did not occur on this shift BOWEL MANAGEMENT - SCORE: 7-IND TRANSFERS: BED, CHAIR, WHEELCHAIR: TRANSFERS: BED, CHAIR, WHEELCHAIR - STEP 1: Does the patient require assistance with bed, chair, or wheelchair transfers? Yes. TRANSFERS: BED, CHAIR, WHEELCHAIR - STEP 2: Does the patient require the assistance of a helper? Yes. TRANSFERS: BED, CHAIR, WHEELCHAIR - STEP 3: How much assistance does the patient require from the helper? Lifting of the legs TRANSFERS: BED, CHAIR, WHEELCHAIR - STEP 4: How many legs does the patient require the helper to lift? both legs TRANSFERS: BED, CHAIR, WHEELCHAIR - SCORE: 3-MOD TRANSFERS: TOILET: TRANSFERS: TOILET - STEP 1: Does the patient require assistance with toilet transfers? Yes. TRANSFERS: TOILET - STEP 2: Does the patient require the assistance of a helper? Yes. TRANSFERS: TOILET - STEP 3: How much assistance does the patient require from the helper? Patient performs half or more of the tr ansferring tasks TRANSFERS: TOILET - STEP 4: Does the patient need only incidental help such as contact guard or steadying during toilet transfer? Yes. TRANSFERS: TOILET - SCORE: 4-MIN TRANSFERS: SHOWER: Activity did not occur on this shift TRANSFERS: SHOWER - SCORE: 0-UNK TRANSFERS: TUB: Activity did not occur on this shift TRANSFERS: TUB - SCORE: 0-UNK LOCOMOTION: WALK: Activity did not occur on this shift LOCOMOTION: WALK - SCORE: 0-UNK LOCOMOTION: WHEELCHAIR: Activity did not occur on this shift LOCOMOTION: WHEELCHAIR - SCORE: 0-UNK COMPREHENSION: COMPREHENSION - STEP 1: Does the patient require help to understand complex and abstract ideas (such as current events, finan neal, discharge planning, medical issues, relationships, etc)? No. COMPREHENSION - STEP 2: Does the patient need extra time, require an assistive device (such as glasses, hearing aids, or an a ugmentative communication system), OR does s/he have mild difficulty expressing complex and abstract ideas (including mild dysarthria or mild word-finding problems)? Yes. COMPREHENSION - SCORE: 6-CADEN EXPRESSION EXPRESSION - STEP 1: Does the patient require help expressing complex and abstract ideas (such as current events, finances , discharge planning, medical issues, relationships, etc)? No. EXPRESSION - STEP 2: Does the patient need extra time, require an assistive device (such as augmentive communication syste m or a communication board), OR does s/he have mild difficulty expressing complex and abstract ideas (including mild dysarthria or mild word-find problems)? No. EXPRESSION - SCORE: 7-IND SOCIAL INTERACTION: SOCIAL INTERACTION - STEP 1: Does the patient require a helper to interact with others in social and therapeutic situations? No. SOCIAL INTERACTION - STEP 2: Does the patient need extra time in social situations, OR does s/he interact with staff, other patien ts, and family members ONLY in structured environments, OR does s/he require medication for social in teraction? No. SOCIAL INTERACTION - SCORE: 7-IND PROBLEM SOLVING: PROBLEM SOLVING - STEP 1: Does the patient need help to solve complex problems such as managing a checking account or confronti ng interpersonal problems? No. PROBLEM SOLVING - STEP 2: Does the patient require extra time to make decisions or solve problems, OR does s/he have slight dif ficulty reading, initiating, or self-correcting in unfamiliar situations? No. PROBLEM SOLVING - SCORE: 7-IND MEMORY: MEMORY - STEP 1: Does the patient need help to remember frequently encountered people, daily routines, and executing r equests? No. MEMORY - STEP 2: Does the patient have slight difficulty recognizing frequently encountered people, daily routines, or executing requests without the need for repetition or using self-initiated or environmental cues to remember? No. MEMORY - SCORE: 7-IND SIGNATURE PANEL: The following modified sections: Eating - Score, Grooming - Score, Bathing - Score, Dressing - Upper Body - Score, Dressing - Lower Body - Score, Toileting - Score, Bladder Management - Score, Bowel Man agement - Score, Transfers: Bed, Chair, Wheelchair - Score, Transfers: Toilet - Score, Transfers: [place] wer - Score, Transfers: Tub - Score, Locomotion: Walk - Score, Locomotion: Wheelchair - Score, Compre hension - Score, Expression - Score, Social Interaction - Score, Problem Solving - Score, Memory - Sc ore were [electronically] signed by Teresa Bo RN on WedMar 25 2018 02:12:46 [facility]00 [facility]
[2018-03-25 06:16] LABS: Absolute Lymphocytes (CBC) 1.7 K/uL (0.7-4.9); Absolute Monocytes 0.8 K/uL (0.1-1.3); Absolute Neutrophil 5.2 K/uL (1.8-8.0); Basophils % 1.2 % (0-1.3); Hematocrit 26.4 % (36.0-45.0); Lymphocytes % 21.5 % (15.3-44.8); MCH 27.9 pg (27.0-35.0); MCV 84.2 fL (80-100); Monocytes % 10.2 % (3.3-12.3); RBC Red Blood Cell Count 3.13 M/uL (3.86-4.86)
[2018-03-25] MEDS: ENOXAPARIN 100 MG/ML SYR SQ SCH ×2 (07:04→20:10)
[2018-03-25] MEDS: ACETAMINOPHEN 500 MG TAB PO PRN ×2 (07:05→12:17)
[2018-03-25] MEDS: POTASSIUM CL SA 10 MEQ TAB PO SCH ×2 (07:05→20:09)
[2018-03-25] MEDS: LOSARTAN POTASSIUM 50 MG TABLET PO SCH (07:05)
[2018-03-25] MEDS: FERROUS SULFATE 325 MG TAB PO SCH (07:05)
[2018-03-25] MEDS: FE SULF/FA/VIT B COMP & C TAB PO SCH (07:05)
[2018-03-25] MEDS: DOCUSATE NA 100 MG CAP PO SCH (07:05)
[2018-03-25] MEDS: GABAPENTIN 100 MG CAP PO SCH ×3 (07:05→20:10)
[2018-03-25] MEDS: BISOPROLOL 5 MG TABLET PO SCH (07:06)
[2018-03-25] MEDS: CARBAMAZEPINE 200 MG TAB PO SCH ×3 (07:06→20:09)
[2018-03-25] MEDS: SPIRONOLACTONE 25 MG TABLET PO SCH (07:06)
[2018-03-25] MEDS: PROMOD 30 ML DOSE PO SCH ×2 (07:07→20:13)
[2018-03-25] MEDS: TRIAMCINOLONE ACETONIDE IH SCH (07:07)
[2018-03-25 08:43] LABS: Ferritin 370.5 ng/mL (8-388)
--- NOTE | 2018-03-25 09:23 | P.RH.PN ---
Estimated Length of Stay: 13 Expected Discharge Date: 04/01/18 Discharge Disposition Plan: Home Family Support: Yes Vital Signs: Last Vital Signs Temp 97.6 F 03/25/18 07:22 Pulse 92 H 03/25/18 07:22 Resp 16 03/25/18 07:22 BP 158/79 H 03/25/18 07:22 Pulse Ox 93 03/25/18 07:22 Laboratory: Laboratory Last Values WBC 7.9 K/uL (4.3-10.9) D 03/25/18 05:44 RBC 3.13 M/uL (3.86-4.86) L 03/25/18 05:44 Hgb 8.7 g/dL (12.0-15.0) L 03/25/18 05:44 Hct 26.4 % (36.0-45.0) L 03/25/18 05:44 MCV 84.2 fL (80-100) 03/25/18 05:44 MCH 27.9 pg (27.0-35.0) 03/25/18 05:44 MCHC 33.1 g/dL (32.0-36.0) 03/25/18 05:44 RDW 13.7 % (12.1-15.2) 03/25/18 05:44 Plt Count 424 K/uL (152-406) H 03/25/18 05:44 MPV 8.0 fL (7.6-11.3) 03/25/18 05:44 Neutrophils % 65.1 % (41.7-73.7) 03/25/18 05:44 Lymphocytes % 21.5 % (15.3-44.8) 03/25/18 05:44 Monocytes % 10.2 % (3.3-12.3) 03/25/18 05:44 Eosinophils % 2.0 % (0-4.4) 03/25/18 05:44 Basophils % 1.2 % (0-1.3) 03/25/18 05:44 Absolute Neutrophils 5.2 K/uL (1.8-8.0) 03/25/18 05:44 Absolute Lymphocytes 1.7 K/uL (0.7-4.9) 03/25/18 05:44 Absolute Monocytes 0.8 K/uL (0.1-1.3) 03/25/18 05:44 Absolute Eosinophils 0.2 K/uL (0-0.5) 03/25/18 05:44 Absolute Basophils 0.1 K/uL (0-0.5) 03/25/18 05:44 ESR Westergren 31 mm/HR (0-30) H 03/22/18 05:25 Sodium 139 mmol/L (136-145) 03/24/18 05:24 Potassium 3.1 mmol/L (3.5-5.1) L 03/24/18 05:24 Chloride 107 mmol/L (98-107) 03/24/18 05:24 Carbon Dioxide 27 mmol/L (21-32) 03/24/18 05:24 BUN 16 mg/dL (7-18) 03/24/18 05:24 Creatinine 0.70 mg/dL (0.55-1.3) 03/24/18 05:24 Estimated GFR 83 mL/min (=/>90) L 03/24/18 05:24 Glucose 114 mg/dL (74-106) H 03/24/18 05:24 Calcium 8.6 mg/dL (8.5-10.1) 03/24/18 05:24 Magnesium 2.0 mg/dL (1.8-2.5) 03/21/18 05:34 Iron 16.0 ug/dL (50-170) L 03/25/18 04:42 TIBC 102 ug/dL (250-460) L 03/25/18 04:42 Transferrin 73 mg/dL (200-360) L 03/25/18 04:42 Transferrin % Sat 15.7 % (20.0-50.0) L 03/25/18 04:42 Ferritin 370.5 ng/mL (8-388) 03/25/18 04:42 Lactate Dehydrogenase 195 U/L (84-246) 03/25/18 04:42 C-Reactive Protein 154.9 mg/L (<10.0) H 03/22/18 05:25 Albumin 2.5 g/dL (3.4-5.0) L 03/24/18 05:24 Prealbumin 13.3 mg/dL (20-40) L 03/24/18 05:24 Vitamin B12 530 pg/mL (193-986) 03/25/18 04:42 Urine Color Yellow 03/20/18 20:28 Urine Appearance Clear 03/20/18 20:28 Urine pH 7.5 (5.0-7.0) H 03/20/18 20:28 Ur Specific [place] 1.015 (1.005-1.030) 03/20/18 20:28 Urine Ketones Trace (NEG) 03/20/18 20:28 Urine Blood Negative (NEG) 03/20/18 20:28 Urine Nitrite Negative (NEG) 03/20/18 20:28 Urine Bilirubin Negative (NEG) 03/20/18 20:28 Urine Urobilinogen 1.0 mg/dL (0.2-1.0) 03/20/18 20:28 Ur Leukocyte Esterase Negative (NEG) 03/20/18 20:28 Urine RBC None seen /HPF (NONE SEEN) 03/20/18 20:28 Urine WBC <5 /HPF (<5) 03/20/18 20:28 Ur Squamous Epith Cells <5 /HPF (NONE SEEN) 03/20/18 20:28 Urine Bacteria 20-50 /HPF (<20) H 03/20/18 20:28 Urine Culture Reflexed Not needed 03/20/18 20:28 Urine Glucose Negative (NEG) 03/20/18 20:28 Urine Total Protein Negative (NEG) 03/20/18 20:28 Weight: 190 lb Wound Present: No Closed Surgical Incision Present: Yes Negative Pressure Wound Therapy Present: No Physician Update: Potassium is mildly low at 3.1. She is taking Kcl 10 meq twice daily. Hgb is mildly low at 8.7. She is taking hemocyte plus and ferrous sulfate. She is doing well with physical and occupational therapy at contact guard assistance level. Dr. Mendiola is managing her medical conditions. Functional Improvement: Patient was SBA w/ transfers and gait tx., prior to being informed of DVT in R LE, however currently is apprehensive toward PT for these reasons. Will continue to work w/ patient per results of DVT. Functional Improvement Occupational Therapy: pt can benifit with therapy services to increase pt's UB strength for adl and for all functional transfers. Cont to educate and train the pt on energy conservation techniques and safety using the A/E for LB dressing. Cont to increase pt's static/dynamic standing tolerance for adl tasks. Cont with the POC and the goals by the supervising OTR. 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 Please see the Rehabilitation Signature page for all necessary signatures.
--- NOTE | 2018-03-25 09:25 | P.RH.PN ---
Estimated Length of Stay: 16 Expected Discharge Date: 03/30/18 Discharge Disposition Plan: Home Family Support: Yes Fdc Goal: Mobility, Transfers, Self Care Vital Signs: Last Vital Signs Temp 97.6 F 03/25/18 07:22 Pulse 92 H 03/25/18 07:22 Resp 16 03/25/18 07:22 BP 158/79 H 03/25/18 07:22 Pulse Ox 93 03/25/18 07:22 Laboratory: Laboratory Last Values WBC 7.9 K/uL (4.3-10.9) D 03/25/18 05:44 RBC 3.13 M/uL (3.86-4.86) L 03/25/18 05:44 Hgb 8.7 g/dL (12.0-15.0) L 03/25/18 05:44 Hct 26.4 % (36.0-45.0) L 03/25/18 05:44 MCV 84.2 fL (80-100) 03/25/18 05:44 MCH 27.9 pg (27.0-35.0) 03/25/18 05:44 MCHC 33.1 g/dL (32.0-36.0) 03/25/18 05:44 RDW 13.7 % (12.1-15.2) 03/25/18 05:44 Plt Count 424 K/uL (152-406) H 03/25/18 05:44 MPV 8.0 fL (7.6-11.3) 03/25/18 05:44 Neutrophils % 65.1 % (41.7-73.7) 03/25/18 05:44 Lymphocytes % 21.5 % (15.3-44.8) 03/25/18 05:44 Monocytes % 10.2 % (3.3-12.3) 03/25/18 05:44 Eosinophils % 2.0 % (0-4.4) 03/25/18 05:44 Basophils % 1.2 % (0-1.3) 03/25/18 05:44 Absolute Neutrophils 5.2 K/uL (1.8-8.0) 03/25/18 05:44 Absolute Lymphocytes 1.7 K/uL (0.7-4.9) 03/25/18 05:44 Absolute Monocytes 0.8 K/uL (0.1-1.3) 03/25/18 05:44 Absolute Eosinophils 0.2 K/uL (0-0.5) 03/25/18 05:44 Absolute Basophils 0.1 K/uL (0-0.5) 03/25/18 05:44 ESR Westergren 31 mm/HR (0-30) H 03/22/18 05:25 Sodium 139 mmol/L (136-145) 03/24/18 05:24 Potassium 3.1 mmol/L (3.5-5.1) L 03/24/18 05:24 Chloride 107 mmol/L (98-107) 03/24/18 05:24 Carbon Dioxide 27 mmol/L (21-32) 03/24/18 05:24 BUN 16 mg/dL (7-18) 03/24/18 05:24 Creatinine 0.70 mg/dL (0.55-1.3) 03/24/18 05:24 Estimated GFR 83 mL/min (=/>90) L 03/24/18 05:24 Glucose 114 mg/dL (74-106) H 03/24/18 05:24 Calcium 8.6 mg/dL (8.5-10.1) 03/24/18 05:24 Magnesium 2.0 mg/dL (1.8-2.5) 03/21/18 05:34 Iron 16.0 ug/dL (50-170) L 03/25/18 04:42 TIBC 102 ug/dL (250-460) L 03/25/18 04:42 Transferrin 73 mg/dL (200-360) L 03/25/18 04:42 Transferrin % Sat 15.7 % (20.0-50.0) L 03/25/18 04:42 Ferritin 370.5 ng/mL (8-388) 03/25/18 04:42 Lactate Dehydrogenase 195 U/L (84-246) 03/25/18 04:42 C-Reactive Protein 154.9 mg/L (<10.0) H 03/22/18 05:25 Albumin 2.5 g/dL (3.4-5.0) L 03/24/18 05:24 Prealbumin 13.3 mg/dL (20-40) L 03/24/18 05:24 Vitamin B12 530 pg/mL (193-986) 03/25/18 04:42 Urine Color Yellow 03/20/18 20:28 Urine Appearance Clear 03/20/18 20:28 Urine pH 7.5 (5.0-7.0) H 03/20/18 20:28 Ur Specific [place] 1.015 (1.005-1.030) 03/20/18 20:28 Urine Ketones Trace (NEG) 03/20/18 20:28 Urine Blood Negative (NEG) 03/20/18 20:28 Urine Nitrite Negative (NEG) 03/20/18 20:28 Urine Bilirubin Negative (NEG) 03/20/18 20:28 Urine Urobilinogen 1.0 mg/dL (0.2-1.0) 03/20/18 20:28 Ur Leukocyte Esterase Negative (NEG) 03/20/18 20:28 Urine RBC None seen /HPF (NONE SEEN) 03/20/18 20:28 Urine WBC <5 /HPF (<5) 03/20/18 20:28 Ur Squamous Epith Cells <5 /HPF (NONE SEEN) 03/20/18 20:28 Urine Bacteria 20-50 /HPF (<20) H 03/20/18 20:28 Urine Culture Reflexed Not needed 03/20/18 20:28 Urine Glucose Negative (NEG) 03/20/18 20:28 Urine Total Protein Negative (NEG) 03/20/18 20:28 Weight: 190 lb Wound Present: No Closed Surgical Incision Present: Yes Negative Pressure Wound Therapy Present: No Physician Update: She is doing better with physical and occupational therapy especially after increasing her Sinemet 25/100 three times daily. Her blood work is within normal limits. Functional Improvement: Patient was SBA w/ transfers and gait tx., prior to being informed of DVT in R LE, however currently is apprehensive toward PT for these reasons. Will continue to work w/ patient per results of DVT. Functional Improvement Occupational Therapy: pt can benifit with therapy services to increase pt's UB strength for adl and for all functional transfers. Cont to educate and train the pt on energy conservation techniques and safety using the A/E for LB dressing. Cont to increase pt's static/dynamic standing tolerance for adl tasks. Cont with the POC and the goals by the supervising OTR. Summary: Patient's care plan and residential goals have been reviewed and revised as necessary. Please see the Rehabilitation Signature page for all necessary signatures.
--- NOTE | 2018-03-25 15:09 | FAST ---
ENCOUNTER DATE AND TIME: 03/25/2018 08:00 (CDT) NAME DOC HINKLE DATE OF : 1945 DATE OF ADMISSION: 03/20/2018 11:23 (CDT) PHONE: AGE: 72 N# [id number] GENDER: Female ENCOUNTER PHYSICIAN: Dr. Joao Robles M.D. ADMISSION DIAGNOSIS: - Orthopaedic Disorders 08 - Unilateral Hip Fracture (08.11) RIGHT HIP FEMORAL NECK FRACTURE. EATING: Activity did not occur on this shift EATING - SCORE: 0-UNK GROOMING: Comb/brush hair Wash, rinse, and dry face Wash, rinse, and dry hands GROOMING - STEP 1: Does the patient require assistance when grooming? No. GROOMING - SCORE: 7-IND BATHING: Abdomen Buttocks Chest Left arm Left lower leg and foot Left upper leg Perineal area Right arm Right lower leg and foot Right upper leg BATHING - STEP 1: Does the patient require assistance when bathing? Yes. BATHING - STEP 2: Does the patient require the assistance of a helper? Yes. BATHING - STEP 3: How much assistance does the patient require from the helper? Only supervision, cuing, coaxing, instr uctions, encouragement BATHING - SCORE: 5-SUP DRESSING - UPPER BODY: T-shirt/pullover shirt (four steps) ARTICLES SCORE Total number of steps: 4 DRESSING - UPPER BODY - STEP 1: Does the patient require help when dressing above the waist? Yes. DRESSING - UPPER BODY - STEP 2: Does the patient require the assistance of a helper? Yes. DRESSING - UPPER BODY - STEP 3: Does the helper touch the patient while dressing? No. DRESSING - UPPER BODY - SCORE: 5-SUP DRESSING - LOWER BODY: Elastic waist pants (three steps) Sock - Left foot (one step) Sock - Right foot (one step) Underwear (three steps) ARTICLES SCORE Total number of steps: 8 DRESSING - LOWER BODY - STEP 1: Does the patient require help when dressing below the waist? Yes. DRESSING - LOWER BODY - STEP 2: Does the patient require the assistance of a helper? Yes. DRESSING - LOWER BODY - STEP 3: Does the helper touch the patient while dressing? No. DRESSING - LOWER BODY - SCORE: 5-SUP TOILETING: TOILETING - STEP 1: Does the patient require assistance with toileting? Yes. TOILETING - STEP 2: Does the patient require the assistance of a helper? Yes. TOILETING - STEP 3: How much assistance does the patient require from the helper? Only supervision TOILETING - SCORE: 5-SUP BLADDER MANAGEMENT: Activity did not occur on this shift BLADDER MANAGEMENT - SCORE: 7-IND BOWEL MANAGEMENT: Activity did not occur on this shift BOWEL MANAGEMENT - SCORE: 7-IND TRANSFERS: BED, CHAIR, WHEELCHAIR: Activity did not occur on this shift TRANSFERS: BED, CHAIR, WHEELCHAIR - SCORE: 0-UNK TRANSFERS: TOILET: TRANSFERS: TOILET - STEP 1: Does the patient require assistance with toilet transfers? Yes. TRANSFERS: TOILET - STEP 2: Does the patient require the assistance of a helper? Yes. TRANSFERS: TOILET - STEP 3: How much assistance does the patient require from the helper? Only supervision, cuing, coaxing, OR he lp to set out transfer equipment or to lock brakes and/or lift foot rests TRANSFERS: TOILET - SCORE: 5-SUP TRANSFERS: SHOWER: TRANSFERS: SHOWER - STEP 1: Does the patient require assistance with shower transfers? Yes. TRANSFERS: SHOWER - STEP 2: Does the patient require the assistance of a helper? Yes. TRANSFERS: SHOWER - STEP 3: How much assistance does the patient require from the helper? Only supervision, cuing, coaxing, or he lp to set out transfer equipment or to lock brakes and/or lift foot rests TRANSFERS: SHOWER - SCORE: 5-SUP TRANSFERS: TUB: Activity did not occur on this shift TRANSFERS: TUB - SCORE: 0-UNK LOCOMOTION: WALK: Activity did not occur on this shift LOCOMOTION: WALK - SCORE: 0-UNK LOCOMOTION: WHEELCHAIR: Activity did not occur on this shift LOCOMOTION: WHEELCHAIR - SCORE: 0-UNK LOCOMOTION: STAIRS: Activity did not occur on this shift LOCOMOTION: STAIRS - SCORE: 0-UNK COMPREHENSION: COMPREHENSION: TYPE: Visual COMPREHENSION - STEP 1: Does the patient require help to understand complex and abstract ideas (such as current events, finan neal, discharge planning, medical issues, relationships, etc)? No. COMPREHENSION - STEP 2: Does the patient need extra time, require an assistive device (such as glasses, hearing aids, or an a ugmentative communication system), OR does s/he have mild difficulty expressing complex and abstract ideas (including mild dysarthria or mild word-finding problems)? Yes. COMPREHENSION - SCORE: 6-CADEN EXPRESSION EXPRESSION: TYPE: Non-Vocal EXPRESSION - STEP 1: Does the patient require help expressing complex and abstract ideas (such as current events, finances , discharge planning, medical issues, relationships, etc)? No. EXPRESSION - STEP 2: Does the patient need extra time, require an assistive device (such as augmentive communication syste m or a communication board), OR does s/he have mild difficulty expressing complex and abstract ideas (including mild dysarthria or mild word-find problems)? No. EXPRESSION - SCORE: 7-IND SOCIAL INTERACTION: SOCIAL INTERACTION - STEP 1: Does the patient require a helper to interact with others in social and therapeutic situations? No. SOCIAL INTERACTION - STEP 2: Does the patient need extra time in social situations, OR does s/he interact with staff, other patien ts, and family members ONLY in structured environments, OR does s/he require medication for social in teraction? No. SOCIAL INTERACTION - SCORE: 7-IND PROBLEM SOLVING: PROBLEM SOLVING - STEP 1: Does the patient need help to solve complex problems such as managing a checking account or confronti ng interpersonal problems? No. PROBLEM SOLVING - STEP 2: Does the patient require extra time to make decisions or solve problems, OR does s/he have slight dif ficulty reading, initiating, or self-correcting in unfamiliar situations? No. PROBLEM SOLVING - SCORE: 7-IND MEMORY: MEMORY - STEP 1: Does the patient need help to remember frequently encountered people, daily routines, and executing r equests? No. MEMORY - STEP 2: Does the patient have slight difficulty recognizing frequently encountered people, daily routines, or executing requests without the need for repetition or using self-initiated or environmental cues to remember? No. MEMORY - SCORE: 7-IND SIGNATURE PANEL: The following modified sections: Eating - Score, Grooming - Score, Bathing - Score, Dressing - Upper Body - Score, Dressing - Lower Body - Score, Toileting - Score, Transfers: Bed, Chair, Wheelchair - S core, Transfers: Toilet - Score, Transfers: Shower - Score, Transfers: Tub - Score, Comprehension - S core, Expression - Score, Social Interaction - Score, Problem Solving - Score, Memory - Score were [e lectronically] signed by PERCY Graham on WedMar 25 2018 14:09:52 [facility]-0500 (Critical access hospital Time)
--- NOTE | 2018-03-25 15:09 | FAST ---
SHIFT START DATE/TIME: 03/25/2018 07:00 (CDT) SHIFT END DATE/TIME: 03/25/2018 19:00 (CDT) NAME DOC HINKLE DATE OF : 1945 DATE OF ADMISSION: 03/20/2018 11:23 (CDT) PHONE: AGE: 72 [facility]# [id number] GENDER: Female ENCOUNTER PHYSICIAN: Dr. Joao Robles M.D. ADMISSION DIAGNOSIS: - Orthopaedic Disorders 08 - Unilateral Hip Fracture (08.11) RIGHT HIP FEMORAL NECK FRACTURE. EATING: EATING - STEP 1: Does the patient require assistance when eating? Yes. EATING - STEP 2: Does the patient require the assistance of a helper? No, patient only requires an assistive device, O R s/he takes more than reasonable time to eat, OR there is a safety concern, OR s/he requires modifie d food consistency EATING - SCORE: 6-CADEN GROOMING: Comb/brush hair Oral care Wash, rinse, and dry face Wash, rinse, and dry hands GROOMING - STEP 1: Does the patient require assistance when grooming? Yes. GROOMING - STEP 2: Does the patient require the assistance of a helper? No. The patient only requires an assistive devic e, OR takes more than reasonable time to groom, OR there is a concern for safety as the patient groom s GROOMING - SCORE: 6-CADEN BATHING: Activity did not occur on this shift BATHING - SCORE: 0-UNK DRESSING - UPPER BODY: ARTICLES SCORE Total number of steps: 0 DRESSING - UPPER BODY - STEP 1: Does the patient require help when dressing above the waist? Yes. DRESSING - UPPER BODY - STEP 2: Does the patient require the assistance of a helper? No. Patient only requires an assistive device, s uch as a button hook, velcro, or ostrich farmer. OR s/he takes more than reasonable time as s/he dresses the upper body. OR there is a concern for safety when s/he dresses the upper body DRESSING - UPPER BODY - SCORE: 6-CADEN DRESSING - LOWER BODY: Elastic waist pants (three steps) Slip-on shoe - Left foot (one step) Slip-on shoe - Right foot (one step) Underwear (three steps) ARTICLES SCORE Total number of steps: 8 DRESSING - LOWER BODY - STEP 1: Does the patient require help when dressing below the waist? Yes. DRESSING - LOWER BODY - STEP 2: Does the patient require the assistance of a helper? Yes. DRESSING - LOWER BODY - STEP 3: Does the helper touch the patient while dressing? No. DRESSING - LOWER BODY - SCORE: 5-SUP TOILETING: TOILETING - STEP 1: Does the patient require assistance with toileting? Yes. TOILETING - STEP 2: Does the patient require the assistance of a helper? Yes. TOILETING - STEP 3: How much assistance does the patient require from the helper? Only supervision TOILETING - SCORE: 5-SUP BLADDER MANAGEMENT: BLADDER MANAGEMENT - STEP 1: Does the patient control the bladder completely and intentionally without equipment or devices or med ications, and is always continent? No. BLADDER MANAGEMENT - STEP 2: Does the patient require the assistance of a helper? No, patient requires and independently uses an a ssistive device, such as a urinal, bedpan, bedside commode, catheter, absorbent pad, or collecting de vice BLADDER MANAGEMENT - SCORE: 6-CADEN BLADDER MANAGEMENT - FREQUENCY OF ACCIDENTS: BLADDER MANAGEMENT(FA) - STEP 1: How many accidents has the patient had during the current shift? 0 BOWEL MANAGEMENT: Activity did not occur on this shift BOWEL MANAGEMENT - SCORE: 7-IND BOWEL MANAGEMENT - FREQUENCY OF ACCIDENTS: BOWEL MANAGEMENT(FA) - STEP 1: How many accidents has the patient had during the current shift? 0 TRANSFERS: BED, CHAIR, WHEELCHAIR: TRANSFERS: BED, CHAIR, WHEELCHAIR - STEP 1: Does the patient require assistance with bed, chair, or wheelchair transfers? Yes. TRANSFERS: BED, CHAIR, WHEELCHAIR - STEP 2: Does the patient require the assistance of a helper? Yes. TRANSFERS: BED, CHAIR, WHEELCHAIR - STEP 3: How much assistance does the patient require from the helper? Only supervision TRANSFERS: BED, CHAIR, WHEELCHAIR - SCORE: 5-SUP TRANSFERS: TOILET: TRANSFERS: TOILET - STEP 1: Does the patient require assistance with toilet transfers? Yes. TRANSFERS: TOILET - STEP 2: Does the patient require the assistance of a helper? No. Patient only requires an assistive device cunningham ch as a grab bar or special seat, OR s/he takes more than reasonable time to perform toilet transfers , OR there is a safety concern when s/he performs toilet transfers. TRANSFERS: TOILET - SCORE: 6-CADEN TRANSFERS: SHOWER: Activity did not occur on this shift TRANSFERS: SHOWER - SCORE: 0-UNK TRANSFERS: TUB: Activity did not occur on this shift TRANSFERS: TUB - SCORE: 0-UNK LOCOMOTION: WALK: Activity did not occur on this shift LOCOMOTION: WALK - SCORE: 0-UNK LOCOMOTION: WHEELCHAIR: LOCOMOTION: WHEELCHAIR - STEP 1: Does the patient need help to go 150 feet in a wheelchair? Yes. LOCOMOTION: WHEELCHAIR - STEP 2: How much assistance does the patient need from the helper? Only supervision, cuing, or coaxing LOCOMOTION: WHEELCHAIR - SCORE: 5-SUP COMPREHENSION: COMPREHENSION: TYPE: Both COMPREHENSION - STEP 1: Does the patient require help to understand complex and abstract ideas (such as current events, finan neal, discharge planning, medical issues, relationships, etc)? No. COMPREHENSION - STEP 2: Does the patient need extra time, require an assistive device (such as glasses, hearing aids, or an a ugmentative communication system), OR does s/he have mild difficulty expressing complex and abstract ideas (including mild dysarthria or mild word-finding problems)? Yes. COMPREHENSION - SCORE: 6-CADEN EXPRESSION EXPRESSION: TYPE: Both EXPRESSION - STEP 1: Does the patient require help expressing complex and abstract ideas (such as current events, finances , discharge planning, medical issues, relationships, etc)? No. EXPRESSION - STEP 2: Does the patient need extra time, require an assistive device (such as augmentive communication syste m or a communication board), OR does s/he have mild difficulty expressing complex and abstract ideas (including mild dysarthria or mild word-find problems)? Yes. EXPRESSION - SCORE: 6-CADEN SOCIAL INTERACTION: SOCIAL INTERACTION - STEP 1: Does the patient require a helper to interact with others in social and therapeutic situations? No. SOCIAL INTERACTION - STEP 2: Does the patient need extra time in social situations, OR does s/he interact with staff, other patien ts, and family members ONLY in structured environments, OR does s/he require medication for social in teraction? Yes, patient needs extra time SOCIAL INTERACTION - SCORE: 6-CADEN PROBLEM SOLVING: PROBLEM SOLVING - STEP 1: Does the patient need help to solve complex problems such as managing a checking account or confronti ng interpersonal problems? No. PROBLEM SOLVING - STEP 2: Does the patient require extra time to make decisions or solve problems, OR does s/he have slight dif ficulty reading, initiating, or self-correcting in unfamiliar situations? Yes, patient needs extra ti me. PROBLEM SOLVING - SCORE: 6-CADEN MEMORY: MEMORY - STEP 1: Does the patient need help to remember frequently encountered people, daily routines, and executing r equests? No. MEMORY - STEP 2: Does the patient have slight difficulty recognizing frequently encountered people, daily routines, or executing requests without the need for repetition or using self-initiated or environmental cues to remember? Yes. MEMORY - SCORE: 6-CADEN SIGNATURE PANEL: The following modified sections: Eating - Score, Grooming - Score, Bathing - Score, Dressing - Upper Body - Score, Dressing - Lower Body - Score, Toileting - Score, Bladder Management - Score, Bowel Man agement - Score, Transfers: Bed, Chair, Wheelchair - Score, Transfers: Toilet - Score, Transfers: Coby wer - Score, Transfers: Tub - Score, Locomotion: Walk - Score, Locomotion: Wheelchair - Score, Compre hension - Score, Expression - Score, Social Interaction - Score, Problem Solving - Score, Memory - Sc ore were [electronically] signed by Cesia Dumont C.N.A. on WedMar 25 2018 14:09:47 T-0500 (Centra l Daylight Time)
--- NOTE | 2018-03-25 15:26 | FAST ---
ENCOUNTER DATE AND TIME: 03/24/2018 08:00 (CDT) NAME DOC HINKLE DATE OF : 1945 DATE OF ADMISSION: 03/20/2018 11:23 (CDT) PHONE: AGE: 72 N# [id number] GENDER: Female ENCOUNTER PHYSICIAN: Dr. Joao Robles M.D. ADMISSION DIAGNOSIS: - Orthopaedic Disorders 08 - Unilateral Hip Fracture (08.11) RIGHT HIP FEMORAL NECK FRACTURE. EATING: Activity did not occur on this shift EATING - SCORE: 0-UNK GROOMING: Activity did not occur on this shift GROOMING - SCORE: 0-UNK BATHING: Activity did not occur on this shift BATHING - SCORE: 0-UNK DRESSING - UPPER BODY: Activity did not occur on this shift Patient is not dressing in public clothing ARTICLES SCORE Total number of steps: 0 DRESSING - UPPER BODY - SCORE: 0-UNK DRESSING - LOWER BODY: Activity did not occur on this shift Patient is not dressing in public clothing ARTICLES SCORE Total number of steps: 0 DRESSING - LOWER BODY - SCORE: 0-UNK TOILETING: Activity did not occur on this shift TOILETING - SCORE: 0-UNK BLADDER MANAGEMENT: Activity did not occur on this shift BLADDER MANAGEMENT - SCORE: 7-IND BOWEL MANAGEMENT: Activity did not occur on this shift BOWEL MANAGEMENT - SCORE: 7-IND TRANSFERS: BED, CHAIR, WHEELCHAIR: TRANSFERS: BED, CHAIR, WHEELCHAIR - STEP 1: Does the patient require assistance with bed, chair, or wheelchair transfers? Yes. TRANSFERS: BED, CHAIR, WHEELCHAIR - STEP 2: Does the patient require the assistance of a helper? Yes. TRANSFERS: BED, CHAIR, WHEELCHAIR - STEP 3: How much assistance does the patient require from the helper? Steadying/guiding assistance TRANSFERS: BED, CHAIR, WHEELCHAIR - SCORE: 4-MIN TRANSFERS: TOILET: Activity did not occur on this shift TRANSFERS: TOILET - SCORE: 0-UNK TRANSFERS: SHOWER: Activity did not occur on this shift TRANSFERS: SHOWER - SCORE: 0-UNK TRANSFERS: TUB: Activity did not occur on this shift TRANSFERS: TUB - SCORE: 0-UNK LOCOMOTION: WALK: Activity did not occur on this shift LOCOMOTION: WALK - SCORE: 0-UNK LOCOMOTION: WHEELCHAIR: LOCOMOTION: WHEELCHAIR - STEP 1: Does the patient need help to go 150 feet in a wheelchair? No. LOCOMOTION: WHEELCHAIR - SCORE: 6-CADEN LOCOMOTION: STAIRS: Activity did not occur on this shift LOCOMOTION: STAIRS - SCORE: 0-UNK COMPREHENSION: COMPREHENSION - SCORE: 0-UNK EXPRESSION EXPRESSION - SCORE: 0-UNK SOCIAL INTERACTION: SOCIAL INTERACTION - SCORE: 0-UNK PROBLEM SOLVING: PROBLEM SOLVING - SCORE: 0-UNK MEMORY: MEMORY - SCORE: 0-UNK SIGNATURE PANEL: The following modified sections: Transfers: Bed, Chair, Wheelchair - Score, Transfers: Toilet - Score , Locomotion: Walk - Score, Locomotion: Wheelchair - Score, Locomotion: Stairs - Score were [electron ically] signed by Angel Stewart PTA on WedMar 25 2018 14:26:53 T-0500 (Central Daylight Time)
--- NOTE | 2018-03-25 15:36 | FAST ---
ENCOUNTER DATE AND TIME: 03/25/2018 08:00 (CDT) NAME DOC HINKLE DATE OF : 1945 DATE OF ADMISSION: 03/20/2018 11:23 (CDT) PHONE: AGE: 72 N# [id number] GENDER: Female ENCOUNTER PHYSICIAN: Dr. Joao Robles M.D. ADMISSION DIAGNOSIS: - Orthopaedic Disorders 08 - Unilateral Hip Fracture (08.11) RIGHT HIP FEMORAL NECK FRACTURE. EATING: Activity did not occur on this shift EATING - SCORE: 0-UNK GROOMING: Activity did not occur on this shift GROOMING - SCORE: 0-UNK BATHING: Activity did not occur on this shift BATHING - SCORE: 0-UNK DRESSING - UPPER BODY: Activity did not occur on this shift Patient is not dressing in public clothing ARTICLES SCORE Total number of steps: 0 DRESSING - UPPER BODY - SCORE: 0-UNK DRESSING - LOWER BODY: Activity did not occur on this shift Patient is not dressing in public clothing ARTICLES SCORE Total number of steps: 0 DRESSING - LOWER BODY - SCORE: 0-UNK TOILETING: Activity did not occur on this shift TOILETING - SCORE: 0-UNK BLADDER MANAGEMENT: Activity did not occur on this shift BLADDER MANAGEMENT - SCORE: 7-IND BOWEL MANAGEMENT: Activity did not occur on this shift BOWEL MANAGEMENT - SCORE: 7-IND TRANSFERS: BED, CHAIR, WHEELCHAIR: TRANSFERS: BED, CHAIR, WHEELCHAIR - STEP 1: Does the patient require assistance with bed, chair, or wheelchair transfers? Yes. TRANSFERS: BED, CHAIR, WHEELCHAIR - STEP 2: Does the patient require the assistance of a helper? Yes. TRANSFERS: BED, CHAIR, WHEELCHAIR - STEP 3: How much assistance does the patient require from the helper? Steadying/guiding assistance TRANSFERS: BED, CHAIR, WHEELCHAIR - SCORE: 4-MIN TRANSFERS: TOILET: Activity did not occur on this shift TRANSFERS: TOILET - SCORE: 0-UNK TRANSFERS: SHOWER: Activity did not occur on this shift TRANSFERS: SHOWER - SCORE: 0-UNK TRANSFERS: TUB: Activity did not occur on this shift TRANSFERS: TUB - SCORE: 0-UNK LOCOMOTION: WALK: Activity did not occur on this shift LOCOMOTION: WALK - SCORE: 0-UNK LOCOMOTION: WHEELCHAIR: LOCOMOTION: WHEELCHAIR - STEP 1: Does the patient need help to go 150 feet in a wheelchair? No. LOCOMOTION: WHEELCHAIR - SCORE: 6-CADEN LOCOMOTION: STAIRS: Activity did not occur on this shift LOCOMOTION: STAIRS - SCORE: 0-UNK COMPREHENSION: COMPREHENSION - SCORE: 0-UNK EXPRESSION EXPRESSION - SCORE: 0-UNK SOCIAL INTERACTION: SOCIAL INTERACTION - SCORE: 0-UNK PROBLEM SOLVING: PROBLEM SOLVING - SCORE: 0-UNK MEMORY: MEMORY - SCORE: 0-UNK SIGNATURE PANEL: The following modified sections: Transfers: Bed, Chair, Wheelchair - Score, Transfers: Toilet - Score , Locomotion: Walk - Score, Locomotion: Wheelchair - Score, Locomotion: Stairs - Score were [electron ically] signed by Angel Stewart PTA on WedMar 25 2018 14:36:46 T-0500 (Central Daylight Time)
--- NOTE | 2018-03-25 15:36 | P.PN ---
Subjective Date of Service: 03/25/18 Chief Complaint: RIGHT LEG PAIN Subjective: Improving (LESSER PAIN) Review of Systems 10-point ROS is otherwise unremarkable General: Weakness Musculoskeletal: Leg Pain Physical Examination - Vital Signs Temperature: 97.6 F Blood Pressure: 158/79 Pulse: 92 Respirations: 16 Pulse Ox (%): 93 - Physical Exam General: Moderate distress HEENT: Atraumatic, PERRLA, EOMI Neck: Supple, JVD not distended Respiratory: Clear to auscultation bilaterally, Normal air movement Cardiovascular: Regular rate/rhythm, Normal S1 S2 Gastrointestinal: Normal bowel sounds, No tenderness Musculoskeletal: No tenderness Integumentary: No rashes Neurological: Normal speech, Normal tone, Normal affect Lymphatics: No axilla or inguinal lymphadenopathy - Studies Laboratory Data (last 24 hrs) 03/25/18 05:44: WBC 7.9 D, Hgb 8.7 L, Hct 26.4 L, Plt Count 424 H Medications List Reviewed: Yes Assessment And Plan - Current Problems (Diagnosis) (1) HTN (hypertension) Onset Date: 03/22/18 Current Visit: Yes Status: Acute Qualifiers: Hypertension type: essential hypertension Qualified Code(s): I10 - Essential (primary) hypertension (2) Hip fracture, right Onset Date: 03/22/18 Current Visit: Yes Status: Acute Plan: RESUME PT LOW K- FRUIT DAILY CHECK TWICE A WEEK SHE IS NOT ON DIURETICS. Qualifiers: Fracture type: closed (3) Right leg pain Current Visit: Yes Status: Acute Plan: ORDER STAT VENOUS DOPPLER POSITIVE STOPPED LOVENOX STARTED ELIQUIS PO BID 10 MG. STAT. (4) Right leg DVT Current Visit: Yes Status: Acute Plan: LOVENOX BID 90 MG WATCH HG DAILY DR. ANN WANTS TO GIVE THIS FOR TWO DAYS. SHE IS IN MORE PAIN THAN YESTERDAY. WILL RESUME ELIQUIS LATER. LOVNOX SC BID HG LOWER Qualifiers: Affected thrombotic vein of extremity: popliteal (5) Anemia in chronic illness Current Visit: Yes Status: Acute Plan: UNLCLEAR WHY HER FERRITIN IS NORMAL B12 NORMAL WILL CHECK OTTONIEL, ANTI DS DNA . SHE HAS CHRONIC SKIN LESIONS OFF AND ON.
[2018-03-25 15:48] LABS: RBC Red Blood Cell Count 3.25 M/uL (3.86-4.86)
--- NOTE | 2018-03-26 03:27 | FAST ---
SHIFT START DATE/TIME: 03/25/2018 19:00 (CDT) SHIFT END DATE/TIME: 03/26/2018 07:00 (CDT) NAME DOC HINKLE DATE OF : 1945 DATE OF ADMISSION: 03/20/2018 11:23 (CDT) PHONE: AGE: 72 N# [id number] GENDER: Female ENCOUNTER PHYSICIAN: Dr. Joao Robles M.D. ADMISSION DIAGNOSIS: - Orthopaedic Disorders 08 - Unilateral Hip Fracture (08.11) RIGHT HIP FEMORAL NECK FRACTURE. EATING: Activity did not occur on this shift EATING - SCORE: 0-UNK GROOMING: Activity did not occur on this shift GROOMING - SCORE: 0-UNK BATHING: Activity did not occur on this shift BATHING - SCORE: 0-UNK DRESSING - UPPER BODY: Patient is not dressing in public clothing ARTICLES SCORE Total number of steps: 0 DRESSING - UPPER BODY - SCORE: 0-UNK DRESSING - LOWER BODY: Patient is not dressing in public clothing ARTICLES SCORE Total number of steps: 0 DRESSING - LOWER BODY - SCORE: 0-UNK TOILETING: TOILETING - STEP 1: Does the patient require assistance with toileting? Yes. TOILETING - STEP 2: Does the patient require the assistance of a helper? Yes. TOILETING - STEP 3: How much assistance does the patient require from the helper? Hands-on assistance from the helper TOILETING - STEP 4: Of the 3 tasks: 1) Adjusting clothing prior to use, 2) Cleansing of perineal area, 3) Adjusting clot ruperto after use; How many tasks does the patient perform WITHOUT assistance of the helper? Three tasks with steadying assistance from the helper TOILETING - SCORE: 4-MIN BLADDER MANAGEMENT: [place] removes incontinent device (Depends, pull ups, etc.); cleans the patient after accident / inco ntinent episode; and, applies new incontinent device. BLADDER MANAGEMENT - SCORE: 1-DEP BLADDER MANAGEMENT - FREQUENCY OF ACCIDENTS: BLADDER MANAGEMENT(FA) - STEP 1: How many accidents has the patient had during the current shift? 1 BOWEL MANAGEMENT: Activity did not occur on this shift BOWEL MANAGEMENT - SCORE: 7-IND TRANSFERS: BED, CHAIR, WHEELCHAIR: TRANSFERS: BED, CHAIR, WHEELCHAIR - STEP 1: Does the patient require assistance with bed, chair, or wheelchair transfers? Yes. TRANSFERS: BED, CHAIR, WHEELCHAIR - STEP 2: Does the patient require the assistance of a helper? Yes. TRANSFERS: BED, CHAIR, WHEELCHAIR - STEP 3: How much assistance does the patient require from the helper? Lifting of the legs TRANSFERS: BED, CHAIR, WHEELCHAIR - STEP 4: How many legs does the patient require the helper to lift? one leg TRANSFERS: BED, CHAIR, WHEELCHAIR - SCORE: 4-MIN TRANSFERS: TOILET: TRANSFERS: TOILET - STEP 1: Does the patient require assistance with toilet transfers? Yes. TRANSFERS: TOILET - STEP 2: Does the patient require the assistance of a helper? Yes. TRANSFERS: TOILET - STEP 3: How much assistance does the patient require from the helper? Patient performs half or more of the tr ansferring tasks TRANSFERS: TOILET - STEP 4: Does the patient need only incidental help such as contact guard or steadying during toilet transfer? No. Patient needs more than incidental help TRANSFERS: TOILET - SCORE: 3-MOD TRANSFERS: SHOWER: Activity did not occur on this shift TRANSFERS: SHOWER - SCORE: 0-UNK TRANSFERS: TUB: Activity did not occur on this shift TRANSFERS: TUB - SCORE: 0-UNK LOCOMOTION: WALK: Activity did not occur on this shift LOCOMOTION: WALK - SCORE: 0-UNK LOCOMOTION: WHEELCHAIR: Activity did not occur on this shift LOCOMOTION: WHEELCHAIR - SCORE: 0-UNK COMPREHENSION: COMPREHENSION: TYPE: Both COMPREHENSION - STEP 1: Does the patient require help to understand complex and abstract ideas (such as current events, finan neal, discharge planning, medical issues, relationships, etc)? No. COMPREHENSION - STEP 2: Does the patient need extra time, require an assistive device (such as glasses, hearing aids, or an a ugmentative communication system), OR does s/he have mild difficulty expressing complex and abstract ideas (including mild dysarthria or mild word-finding problems)? Yes. COMPREHENSION - SCORE: 6-CADEN EXPRESSION EXPRESSION: TYPE: Both EXPRESSION - STEP 1: Does the patient require help expressing complex and abstract ideas (such as current events, finances , discharge planning, medical issues, relationships, etc)? No. EXPRESSION - STEP 2: Does the patient need extra time, require an assistive device (such as augmentive communication syste m or a communication board), OR does s/he have mild difficulty expressing complex and abstract ideas (including mild dysarthria or mild word-find problems)? No. EXPRESSION - SCORE: 7-IND SOCIAL INTERACTION: SOCIAL INTERACTION - STEP 1: Does the patient require a helper to interact with others in social and therapeutic situations? No. SOCIAL INTERACTION - STEP 2: Does the patient need extra time in social situations, OR does s/he interact with staff, other patien ts, and family members ONLY in structured environments, OR does s/he require medication for social in teraction? No. SOCIAL INTERACTION - SCORE: 7-IND PROBLEM SOLVING: PROBLEM SOLVING - STEP 1: Does the patient need help to solve complex problems such as managing a checking account or confronti ng interpersonal problems? No. PROBLEM SOLVING - STEP 2: Does the patient require extra time to make decisions or solve problems, OR does s/he have slight dif ficulty reading, initiating, or self-correcting in unfamiliar situations? No. PROBLEM SOLVING - SCORE: 7-IND MEMORY: MEMORY - STEP 1: Does the patient need help to remember frequently encountered people, daily routines, and executing r equests? No. MEMORY - STEP 2: Does the patient have slight difficulty recognizing frequently encountered people, daily routines, or executing requests without the need for repetition or using self-initiated or environmental cues to remember? No. MEMORY - SCORE: 7-IND
[2018-03-26 05:50] LABS: Absolute Lymphocytes (CBC) 1.7 K/uL (0.7-4.9); Absolute Monocytes 0.7 K/uL (0.1-1.3); Absolute Neutrophil 4.7 K/uL (1.8-8.0); Basophils % 1.3 % (0-1.3); Eosinophils % 2.9 % (0-4.4); Hematocrit 28.5 % (36.0-45.0); Lymphocytes % 23.2 % (15.3-44.8); MCH 27.5 pg (27.0-35.0); MCV 83.8 fL (80-100); MPV 7.5 fL (7.6-11.3); Monocytes % 9.7 % (3.3-12.3)
[2018-03-26] MEDS: TRIAMCINOLONE ACETONIDE IH SCH (08:00)
[2018-03-26] MEDS: SPIRONOLACTONE 25 MG TABLET PO SCH (08:16)
[2018-03-26] MEDS: FE SULF/FA/VIT B COMP & C TAB PO SCH (08:16)
[2018-03-26] MEDS: DOCUSATE NA 100 MG CAP PO SCH (08:17)
[2018-03-26] MEDS: LOSARTAN POTASSIUM 50 MG TABLET PO SCH (08:17)
[2018-03-26] MEDS: BISOPROLOL 5 MG TABLET PO SCH (08:18)
[2018-03-26] MEDS: POTASSIUM CL SA 10 MEQ TAB PO SCH ×2 (08:19→20:27)
[2018-03-26] MEDS: GABAPENTIN 100 MG CAP PO SCH ×3 (08:19→20:27)
[2018-03-26] MEDS: CARBAMAZEPINE 200 MG TAB PO SCH ×3 (08:20→20:27)
[2018-03-26] MEDS: PROMOD 30 ML DOSE PO SCH ×2 (08:21→20:27)
[2018-03-26] MEDS: FERROUS SULFATE 325 MG TAB PO SCH (08:21)
--- NOTE | 2018-03-26 09:53 | P.PN ---
Subjective Date of Service: 03/26/18 Chief Complaint: RIGHT LEG PAIN Subjective: Improving Review of Systems 10-point ROS is otherwise unremarkable Physical Examination - Vital Signs Temperature: 98.1 F Blood Pressure: 157/68 Pulse: 98 Respirations: 16 Pulse Ox (%): 98 - Physical Exam General: Mild distress HEENT: Atraumatic, PERRLA, EOMI Neck: Supple, JVD not distended Respiratory: Clear to auscultation bilaterally, Normal air movement Cardiovascular: Edema (RIGHT LEG PAIN) Gastrointestinal: Normal bowel sounds, No tenderness Musculoskeletal: No tenderness Integumentary: No rashes Neurological: Normal speech, Normal tone, Normal affect Lymphatics: No axilla or inguinal lymphadenopathy - Studies Laboratory Data (last 24 hrs) 03/26/18 05:34: WBC 7.4, Hgb 9.3 L, Hct 28.5 L, Plt Count 540 H D Medications List Reviewed: Yes Assessment And Plan - Current Problems (Diagnosis) (1) HTN (hypertension) Onset Date: 03/22/18 Current Visit: Yes Status: Acute Qualifiers: Hypertension type: essential hypertension Qualified Code(s): I10 - Essential (primary) hypertension (2) Hip fracture, right Onset Date: 03/22/18 Current Visit: Yes Status: Acute Plan: RESUME PT LOW K- FRUIT DAILY CHECK TWICE A WEEK SHE IS NOT ON DIURETICS. Qualifiers: Fracture type: closed (3) Right leg pain Current Visit: Yes Status: Acute Plan: ORDER STAT VENOUS DOPPLER POSITIVE STOPPED LOVENOX STARTED ELIQUIS PO BID 10 MG. STAT. (4) Right leg DVT Current Visit: Yes Status: Acute Plan: LOVENOX BID 90 MG WATCH HG DAILY DR. ANN WANTS TO GIVE THIS FOR TWO DAYS. SHE IS IN MORE PAIN THAN YESTERDAY. WILL RESUME ELIQUIS LATER. LOVNOX SC BID HG LOWER RIGHT LEG PAIN , DVT, LOVENOX SC BID. Qualifiers: Affected thrombotic vein of extremity: popliteal (5) Anemia in chronic illness Current Visit: Yes Status: Acute Plan: UNLCLEAR WHY HER FERRITIN IS NORMAL B12 NORMAL WILL CHECK OTTONIEL, ANTI DS DNA . SHE HAS CHRONIC SKIN LESIONS OFF AND ON. STABLE, IMPROVED. (6) Hypokalemia Current Visit: Yes Status: Acute Plan: UNUSUAL TO HAVE THIS WITH BOTH LOSARTAN AND SPIRONOLACTONE ONE. SHE SEEMS TO HAVE HIGH ALDOSTERONE LEVELS. WILL CHECK ABD SONOGRAM , ADRENAL.S
[2018-03-26] MEDS: ENOXAPARIN 100 MG/ML SYR SQ SCH ×2 (11:21→20:26)
--- NOTE | 2018-03-26 12:37 | FAST ---
ENCOUNTER DATE AND TIME: 03/26/2018 08:00 (CDT) NAME DOC HINKLE DATE OF : 1945 DATE OF ADMISSION: 03/20/2018 11:23 (CDT) PHONE: AGE: 72 N# [id number] GENDER: Female ENCOUNTER PHYSICIAN: Dr. Joao Robles M.D. ADMISSION DIAGNOSIS: - Orthopaedic Disorders 08 - Unilateral Hip Fracture (08.11) RIGHT HIP FEMORAL NECK FRACTURE. EATING: Activity did not occur on this shift EATING - SCORE: 0-UNK GROOMING: Activity did not occur on this shift GROOMING - SCORE: 0-UNK BATHING: Activity did not occur on this shift BATHING - SCORE: 0-UNK DRESSING - UPPER BODY: Activity did not occur on this shift Patient is not dressing in public clothing ARTICLES SCORE Total number of steps: 0 DRESSING - UPPER BODY - SCORE: 0-UNK DRESSING - LOWER BODY: Activity did not occur on this shift Patient is not dressing in public clothing ARTICLES SCORE Total number of steps: 0 DRESSING - LOWER BODY - SCORE: 0-UNK TOILETING: Activity did not occur on this shift TOILETING - SCORE: 0-UNK BLADDER MANAGEMENT: Activity did not occur on this shift BLADDER MANAGEMENT - SCORE: 7-IND BOWEL MANAGEMENT: Activity did not occur on this shift BOWEL MANAGEMENT - SCORE: 7-IND TRANSFERS: BED, CHAIR, WHEELCHAIR: TRANSFERS: BED, CHAIR, WHEELCHAIR - STEP 1: Does the patient require assistance with bed, chair, or wheelchair transfers? Yes. TRANSFERS: BED, CHAIR, WHEELCHAIR - STEP 2: Does the patient require the assistance of a helper? Yes. TRANSFERS: BED, CHAIR, WHEELCHAIR - STEP 3: How much assistance does the patient require from the helper? Only supervision TRANSFERS: BED, CHAIR, WHEELCHAIR - SCORE: 5-SUP TRANSFERS: TOILET: Activity did not occur on this shift TRANSFERS: TOILET - SCORE: 0-UNK TRANSFERS: SHOWER: Activity did not occur on this shift TRANSFERS: SHOWER - SCORE: 0-UNK TRANSFERS: TUB: Activity did not occur on this shift TRANSFERS: TUB - SCORE: 0-UNK LOCOMOTION: WALK: LOCOMOTION: WALK - STEP 1: Does the patient need help to walk 150 feet? Yes. LOCOMOTION: WALK - STEP 2: How much assistance does the patient require to walk a minimum of 150 feet? Only supervision, cuing, or coaxing LOCOMOTION: WALK - SCORE: 5-SUP LOCOMOTION: WHEELCHAIR: LOCOMOTION: WHEELCHAIR - STEP 1: Does the patient need help to go 150 feet in a wheelchair? Yes. LOCOMOTION: WHEELCHAIR - STEP 2: How much assistance does the patient need from the helper? Only incidental help such as around corner s or over thresholds LOCOMOTION: WHEELCHAIR - SCORE: 4-MIN LOCOMOTION: STAIRS: Activity did not occur on this shift LOCOMOTION: STAIRS - SCORE: 0-UNK COMPREHENSION: COMPREHENSION - SCORE: 0-UNK EXPRESSION EXPRESSION - SCORE: 0-UNK SOCIAL INTERACTION: SOCIAL INTERACTION - SCORE: 0-UNK PROBLEM SOLVING: PROBLEM SOLVING - SCORE: 0-UNK MEMORY: MEMORY - SCORE: 0-UNK SIGNATURE PANEL: The following modified sections: Transfers: Bed, Chair, Wheelchair - Score, Transfers: Toilet - Score , Locomotion: Walk - Score, Locomotion: Wheelchair - Score, Locomotion: Stairs - Score were [electron galo] signed by Loida Stewart PTA on Sat Mar 26 2018 11:36:33 GMT-0500 (Central Daylight Time)
--- NOTE | 2018-03-26 15:34 | FAST ---
ENCOUNTER DATE AND TIME: 03/26/2018 08:00 (CDT) NAME DOC HINKLE DATE OF : 1945 DATE OF ADMISSION: 03/20/2018 11:23 (CDT) PHONE: AGE: 72 N# [id number] GENDER: Female ENCOUNTER PHYSICIAN: Dr. Joao Robles M.D. ADMISSION DIAGNOSIS: - Orthopaedic Disorders 08 - Unilateral Hip Fracture (08.11) RIGHT HIP FEMORAL NECK FRACTURE. EATING: Activity did not occur on this shift EATING - SCORE: 0-UNK GROOMING: Activity did not occur on this shift GROOMING - SCORE: 0-UNK BATHING: Activity did not occur on this shift BATHING - SCORE: 0-UNK DRESSING - UPPER BODY: Activity did not occur on this shift ARTICLES SCORE Total number of steps: 0 DRESSING - UPPER BODY - SCORE: 0-UNK DRESSING - LOWER BODY: Elastic waist pants (three steps) Sock - Left foot (one step) Sock - Right foot (one step) ARTICLES SCORE Total number of steps: 5 DRESSING - LOWER BODY - STEP 1: Does the patient require help when dressing below the waist? Yes. DRESSING - LOWER BODY - STEP 2: Does the patient require the assistance of a helper? Yes. DRESSING - LOWER BODY - STEP 3: Does the helper touch the patient while dressing? Yes. DRESSING - LOWER BODY - STEP 4: How many of the total steps does the patient complete on his/her own? 3 DRESSING - LOWER BODY - SCORE: 3-MOD TOILETING: Activity did not occur on this shift TOILETING - SCORE: 0-UNK BLADDER MANAGEMENT: Activity did not occur on this shift BLADDER MANAGEMENT - SCORE: 7-IND BOWEL MANAGEMENT: Activity did not occur on this shift BOWEL MANAGEMENT - SCORE: 7-IND TRANSFERS: BED, CHAIR, WHEELCHAIR: Activity did not occur on this shift TRANSFERS: BED, CHAIR, WHEELCHAIR - SCORE: 0-UNK TRANSFERS: TOILET: Activity did not occur on this shift TRANSFERS: TOILET - SCORE: 0-UNK TRANSFERS: SHOWER: Activity did not occur on this shift TRANSFERS: SHOWER - SCORE: 0-UNK TRANSFERS: TUB: Activity did not occur on this shift TRANSFERS: TUB - SCORE: 0-UNK LOCOMOTION: WALK: Activity did not occur on this shift LOCOMOTION: WALK - SCORE: 0-UNK LOCOMOTION: WHEELCHAIR: Activity did not occur on this shift LOCOMOTION: WHEELCHAIR - SCORE: 0-UNK LOCOMOTION: STAIRS: Activity did not occur on this shift LOCOMOTION: STAIRS - SCORE: 0-UNK COMPREHENSION: COMPREHENSION: TYPE: Both COMPREHENSION - STEP 1: Does the patient require help to understand complex and abstract ideas (such as current events, finan neal, discharge planning, medical issues, relationships, etc)? No. COMPREHENSION - STEP 2: Does the patient need extra time, require an assistive device (such as glasses, hearing aids, or an a ugmentative communication system), OR does s/he have mild difficulty expressing complex and abstract ideas (including mild dysarthria or mild word-finding problems)? Yes. COMPREHENSION - SCORE: 6-CADEN EXPRESSION EXPRESSION: TYPE: Vocal EXPRESSION - STEP 1: Does the patient require help expressing complex and abstract ideas (such as current events, finances , discharge planning, medical issues, relationships, etc)? No. EXPRESSION - STEP 2: Does the patient need extra time, require an assistive device (such as augmentive communication syste m or a communication board), OR does s/he have mild difficulty expressing complex and abstract ideas (including mild dysarthria or mild word-find problems)? Yes. EXPRESSION - SCORE: 6-CADEN SOCIAL INTERACTION: SOCIAL INTERACTION - STEP 1: Does the patient require a helper to interact with others in social and therapeutic situations? No. SOCIAL INTERACTION - STEP 2: Does the patient need extra time in social situations, OR does s/he interact with staff, other patien ts, and family members ONLY in structured environments, OR does s/he require medication for social in teraction? No. SOCIAL INTERACTION - SCORE: 7-IND PROBLEM SOLVING: PROBLEM SOLVING - STEP 1: Does the patient need help to solve complex problems such as managing a checking account or confronti ng interpersonal problems? Yes. PROBLEM SOLVING - STEP 2: Does the patient solve basic routine problems half or more of the time? Yes. PROBLEM SOLVING - STEP 3: How often does the patient need help to solve basic routine problems? Less than 10% of the time PROBLEM SOLVING - SCORE: 5-SUP MEMORY: MEMORY - STEP 1: Does the patient need help to remember frequently encountered people, daily routines, and executing r equests? Yes. MEMORY - STEP 2: How often does the patient need help to remember frequently encountered people, daily routines, and e xecuting requests? Less than 10% of the time MEMORY - SCORE: 5-SUP SIGNATURE PANEL: The following modified sections: Eating - Score, Grooming - Score, Bathing - Score, Dressing - Upper Body - Score, Dressing - Lower Body - Score, Toileting - Score, Transfers: Bed, Chair, Wheelchair - S core, Transfers: Toilet - Score, Transfers: Shower - Score, Transfers: Tub - Score, Comprehension - S core, Expression - Score, Social Interaction - Score, Problem Solving - Score, Memory - Score were [e lectronically] signed by Marisela Murillo OT on Sat Mar 26 2018 14:34:27 GMT-0500 (Central Daylight Ti me)
--- NOTE | 2018-03-26 17:39 | FAST ---
SHIFT START DATE/TIME: 03/26/2018 07:00 (CDT) SHIFT END DATE/TIME: 03/26/2018 19:00 (CDT) NAME DOC HINKLE DATE OF : 1945 DATE OF ADMISSION: 03/20/2018 11:23 (CDT) PHONE: AGE: 72 [facility]# [id number] GENDER: Female ENCOUNTER PHYSICIAN: Dr. Joao Robles M.D. ADMISSION DIAGNOSIS: - Orthopaedic Disorders 08 - Unilateral Hip Fracture (08.11) RIGHT HIP FEMORAL NECK FRACTURE. EATING: EATING - STEP 1: Does the patient require assistance when eating? Yes. EATING - STEP 2: Does the patient require the assistance of a helper? Yes. EATING - STEP 3: Does the patient perform half or more of the eating tasks? Yes. EATING - STEP 4: Does the patient need only supervision, cuing, coaxing OR help to apply an orthosis OR help to cut fo od, open containers, pour liquids, or butter bread? Yes. EATING - SCORE: 5-SUP GROOMING: Comb/brush hair Oral care Wash, rinse, and dry face Wash, rinse, and dry hands GROOMING - STEP 1: Does the patient require assistance when grooming? Yes. GROOMING - STEP 2: Does the patient require the assistance of a helper? Yes. GROOMING - STEP 3: How much assistance does the patient require from the helper? Only prior equipment preparation/set up from the helper GROOMING - SCORE: 5-SUP BATHING: Activity did not occur on this shift BATHING - SCORE: 0-UNK DRESSING - UPPER BODY: Bra (three steps) T-shirt/pullover shirt (four steps) ARTICLES SCORE Total number of steps: 7 DRESSING - UPPER BODY - STEP 1: Does the patient require help when dressing above the waist? Yes. DRESSING - UPPER BODY - STEP 2: Does the patient require the assistance of a helper? Yes. DRESSING - UPPER BODY - STEP 3: Does the helper touch the patient while dressing? No. DRESSING - UPPER BODY - SCORE: 5-SUP DRESSING - LOWER BODY: Elastic waist pants (three steps) Slip-on shoe - Left foot (one step) Slip-on shoe - Right foot (one step) Underwear (three steps) ARTICLES SCORE Total number of steps: 8 DRESSING - LOWER BODY - STEP 1: Does the patient require help when dressing below the waist? Yes. DRESSING - LOWER BODY - STEP 2: Does the patient require the assistance of a helper? Yes. DRESSING - LOWER BODY - STEP 3: Does the helper touch the patient while dressing? Yes. DRESSING - LOWER BODY - STEP 4: How many of the total steps does the patient complete on his/her own? 4 DRESSING - LOWER BODY - SCORE: 3-MOD TOILETING: TOILETING - STEP 1: Does the patient require assistance with toileting? Yes. TOILETING - STEP 2: Does the patient require the assistance of a helper? Yes. TOILETING - STEP 3: How much assistance does the patient require from the helper? Only supervision TOILETING - SCORE: 5-SUP BLADDER MANAGEMENT: BLADDER MANAGEMENT - STEP 1: Does the patient control the bladder completely and intentionally without equipment or devices or med ications, and is always continent? No. BLADDER MANAGEMENT - STEP 2: Does the patient require the assistance of a helper? Yes. BLADDER MANAGEMENT - STEP 3: How much assistance does the patient require from the helper? Only supervision, stand-by, cuing, or c oaxing BLADDER MANAGEMENT - SCORE: 5-SUP BLADDER MANAGEMENT - FREQUENCY OF ACCIDENTS: BLADDER MANAGEMENT(FA) - STEP 1: How many accidents has the patient had during the current shift? 0 BOWEL MANAGEMENT: BOWEL MANAGEMENT - STEP 1: Does the patient control bowels completely and intentionally without equipment devices or medications AND is always continent? No. BOWEL MANAGEMENT - STEP 2: Does the patient require the assistance of a helper? No, patient requires medication for control such as stool softeners, suppositories, laxatives, enemas, or OTC medications BOWEL MANAGEMENT - SCORE: 6-CADEN BOWEL MANAGEMENT - FREQUENCY OF ACCIDENTS: BOWEL MANAGEMENT(FA) - STEP 1: How many accidents has the patient had during the current shift? 0 TRANSFERS: BED, CHAIR, WHEELCHAIR: TRANSFERS: BED, CHAIR, WHEELCHAIR - STEP 1: Does the patient require assistance with bed, chair, or wheelchair transfers? Yes. TRANSFERS: BED, CHAIR, WHEELCHAIR - STEP 2: Does the patient require the assistance of a helper? Yes. TRANSFERS: BED, CHAIR, WHEELCHAIR - STEP 3: How much assistance does the patient require from the helper? Only supervision TRANSFERS: BED, CHAIR, WHEELCHAIR - SCORE: 5-SUP TRANSFERS: TOILET: TRANSFERS: TOILET - STEP 1: Does the patient require assistance with toilet transfers? Yes. TRANSFERS: TOILET - STEP 2: Does the patient require the assistance of a helper? Yes. TRANSFERS: TOILET - STEP 3: How much assistance does the patient require from the helper? Patient performs half or more of the tr ansferring tasks TRANSFERS: TOILET - STEP 4: Does the patient need only incidental help such as contact guard or steadying during toilet transfer? Yes. TRANSFERS: TOILET - SCORE: 4-MIN TRANSFERS: SHOWER: Activity did not occur on this shift TRANSFERS: SHOWER - SCORE: 0-UNK TRANSFERS: TUB: Activity did not occur on this shift TRANSFERS: TUB - SCORE: 0-UNK LOCOMOTION: WALK: Activity did not occur on this shift LOCOMOTION: WALK - SCORE: 0-UNK LOCOMOTION: WHEELCHAIR: Activity did not occur on this shift LOCOMOTION: WHEELCHAIR - SCORE: 0-UNK COMPREHENSION: COMPREHENSION: TYPE: Both COMPREHENSION - STEP 1: Does the patient require help to understand complex and abstract ideas (such as current events, finan neal, discharge planning, medical issues, relationships, etc)? No. COMPREHENSION - STEP 2: Does the patient need extra time, require an assistive device (such as glasses, hearing aids, or an a ugmentative communication system), OR does s/he have mild difficulty expressing complex and abstract ideas (including mild dysarthria or mild word-finding problems)? Yes. COMPREHENSION - SCORE: 6-CADEN EXPRESSION EXPRESSION: TYPE: Both EXPRESSION - STEP 1: Does the patient require help expressing complex and abstract ideas (such as current events, finances , discharge planning, medical issues, relationships, etc)? No. EXPRESSION - STEP 2: Does the patient need extra time, require an assistive device (such as augmentive communication syste m or a communication board), OR does s/he have mild difficulty expressing complex and abstract ideas (including mild dysarthria or mild word-find problems)? Yes. EXPRESSION - SCORE: 6-CADEN SOCIAL INTERACTION: SOCIAL INTERACTION - STEP 1: Does the patient require a helper to interact with others in social and therapeutic situations? No. SOCIAL INTERACTION - STEP 2: Does the patient need extra time in social situations, OR does s/he interact with staff, other patien ts, and family members ONLY in structured environments, OR does s/he require medication for social in teraction? Yes, patient needs extra time SOCIAL INTERACTION - SCORE: 6-CADEN PROBLEM SOLVING: PROBLEM SOLVING - STEP 1: Does the patient need help to solve complex problems such as managing a checking account or confronti ng interpersonal problems? Yes. PROBLEM SOLVING - STEP 2: Does the patient solve basic routine problems half or more of the time? Yes. PROBLEM SOLVING - STEP 3: How often does the patient need help to solve basic routine problems? Less than 10% of the time PROBLEM SOLVING - SCORE: 5-SUP MEMORY: MEMORY - STEP 1: Does the patient need help to remember frequently encountered people, daily routines, and executing r equests? No. MEMORY - STEP 2: Does the patient have slight difficulty recognizing frequently encountered people, daily routines, or executing requests without the need for repetition or using self-initiated or environmental cues to remember? Yes. MEMORY - SCORE: 6-CADEN SIGNATURE PANEL: The following modified sections: Eating - Score, Grooming - Score, Bathing - Score, Dressing - Upper Body - Score, Dressing - Lower Body - Score, Toileting - Score, Bladder Management - Score, Bowel Man agement - Score, Transfers: Bed, Chair, Wheelchair - Score, Transfers: Toilet - Score, Transfers: Coby wer - Score, Transfers: Tub - Score, Locomotion: Walk - Score, Locomotion: Wheelchair - Score, Compre hension - Score, Expression - Score, Social Interaction - Score, Problem Solving - Score, Memory - Sc ore were [electronically] signed by Cesia Dumont C.N.A. on Sat Mar 26 2018 16:39:18 T-0500 (Centra l Daylight Time)
--- NOTE | 2018-03-26 18:05 | RAD REPORT ---
EXAM DESCRIPTION: US - Abdomen Exam Complete - 03/26/2018 5:51 pm CLINICAL HISTORY: Abdominal pain. HYPOKALEMIA, DVT, EVALUATE ADRENALS. COMPARISON: Abdomen Exam Complete dated 03/19/2016Abdomen Exam Complete dated 03/19/2016; Chest Single View dated 03/18/2018 FINDINGS: The liver is normal in size, shape and echotexture. No focal liver lesions or intrahepatic biliary dilatation is seen. Small slightly complex liver cyst noted measuring 18 x 11 mm. Shadowing gallstones are present in the gallbladder. Small amount of gallbladder sludge is seen. Com mon bile duct is normal in caliber measuring 5 millimeters. Both kidneys are normal in size, shape and echotexture. No hydronephrosis, focal lesion of concern or perinephric fluid. The spleen is normal in size measuring 11 cm. The pancreas and aorta are obscured by bowel gas. The visualized aspects of the IVC are grossly normal. IMPRESSION: Cholelithiasis. Small, slightly complicated liver cyst measuring 18 x 11 mm.
--- NOTE | 2018-03-27 03:18 | FAST ---
SHIFT START DATE/TIME: 03/26/2018 19:00 (CDT) SHIFT END DATE/TIME: 03/27/2018 07:00 (CDT) NAME DOC HINKLE DATE OF : 1945 DATE OF ADMISSION: 03/20/2018 11:23 (CDT) PHONE: AGE: 72 [facility] [place]# [phone] GENDER: Female ENCOUNTER PHYSICIAN: Dr. Joao Robles M.D. ADMISSION DIAGNOSIS: - Orthopaedic Disorders 08 - Unilateral Hip Fracture (08.11) RIGHT HIP FEMORAL NECK FRACTURE. EATING: Activity did not occur on this shift EATING - SCORE: 0-UNK GROOMING: Wash, rinse, and dry hands GROOMING - STEP 1: Does the patient require assistance when grooming? Yes. GROOMING - STEP 2: Does the patient require the assistance of a helper? Yes. GROOMING - STEP 3: How much assistance does the patient require from the helper? Only prior equipment preparation/set up from the helper GROOMING - SCORE: 5-SUP BATHING: Activity did not occur on this shift BATHING - SCORE: 0-UNK DRESSING - UPPER BODY: Patient is not dressing in public clothing ARTICLES SCORE Total number of steps: 0 DRESSING - UPPER BODY - SCORE: 0-UNK DRESSING - LOWER BODY: Patient is not dressing in public clothing ARTICLES SCORE Total number of steps: 0 DRESSING - LOWER BODY - SCORE: 0-UNK TOILETING: TOILETING - STEP 1: Does the patient require assistance with toileting? Yes. TOILETING - STEP 2: Does the patient require the assistance of a helper? Yes. TOILETING - STEP 3: How much assistance does the patient require from the helper? Hands-on assistance from the helper TOILETING - STEP 4: Of the 3 tasks: 1) Adjusting clothing prior to use, 2) Cleansing of perineal area, 3) Adjusting clot ruperto after use; How many tasks does the patient perform WITHOUT assistance of the helper? Three tasks with steadying assistance from the helper TOILETING - SCORE: 4-MIN BLADDER MANAGEMENT: BLADDER MANAGEMENT - STEP 1: Does the patient control the bladder completely and intentionally without equipment or devices or med ications, and is always continent? No. BLADDER MANAGEMENT - STEP 2: Does the patient require the assistance of a helper? Yes. BLADDER MANAGEMENT - STEP 3: How much assistance does the patient require from the helper? Patient requires contact assistance fro m the helper BLADDER MANAGEMENT - STEP 4: How much contact assistance does the patient require from the helper? Patient requires minimal assist ance to maintain an external device - by positioning, and the patient performs 75% or more of bladder management tasks, while the helper provides less than 25% of the assistance to position patient on / off bedpan BLADDER MANAGEMENT - SCORE: 4-MIN BOWEL MANAGEMENT: Activity did not occur on this shift BOWEL MANAGEMENT - SCORE: 7-IND TRANSFERS: BED, CHAIR, WHEELCHAIR: TRANSFERS: BED, CHAIR, WHEELCHAIR - STEP 1: Does the patient require assistance with bed, chair, or wheelchair transfers? Yes. TRANSFERS: BED, CHAIR, WHEELCHAIR - STEP 2: Does the patient require the assistance of a helper? Yes. TRANSFERS: BED, CHAIR, WHEELCHAIR - STEP 3: How much assistance does the patient require from the helper? Steadying/guiding assistance TRANSFERS: BED, CHAIR, WHEELCHAIR - SCORE: 4-MIN TRANSFERS: TOILET: TRANSFERS: TOILET - STEP 1: Does the patient require assistance with toilet transfers? Yes. TRANSFERS: TOILET - STEP 2: Does the patient require the assistance of a helper? Yes. TRANSFERS: TOILET - STEP 3: How much assistance does the patient require from the helper? Patient performs half or more of the tr ansferring tasks TRANSFERS: TOILET - STEP 4: Does the patient need only incidental help such as contact guard or steadying during toilet transfer? No. Patient needs more than incidental help TRANSFERS: TOILET - SCORE: 3-MOD TRANSFERS: SHOWER: Activity did not occur on this shift TRANSFERS: SHOWER - SCORE: 0-UNK TRANSFERS: TUB: Activity did not occur on this shift TRANSFERS: TUB - SCORE: 0-UNK LOCOMOTION: WALK: Activity did not occur on this shift LOCOMOTION: WALK - SCORE: 0-UNK LOCOMOTION: WHEELCHAIR: Activity did not occur on this shift LOCOMOTION: WHEELCHAIR - SCORE: 0-UNK COMPREHENSION: COMPREHENSION: TYPE: Visual COMPREHENSION - STEP 1: Does the patient require help to understand complex and abstract ideas (such as current events, finan neal, discharge planning, medical issues, relationships, etc)? No. COMPREHENSION - STEP 2: Does the patient need extra time, require an assistive device (such as glasses, hearing aids, or an a ugmentative communication system), OR does s/he have mild difficulty expressing complex and abstract ideas (including mild dysarthria or mild word-finding problems)? Yes. COMPREHENSION - SCORE: 6-CADEN EXPRESSION EXPRESSION: TYPE: Vocal EXPRESSION - STEP 1: Does the patient require help expressing complex and abstract ideas (such as current events, finances , discharge planning, medical issues, relationships, etc)? No. EXPRESSION - STEP 2: Does the patient need extra time, require an assistive device (such as augmentive communication syste m or a communication board), OR does s/he have mild difficulty expressing complex and abstract ideas (including mild dysarthria or mild word-find problems)? No. EXPRESSION - SCORE: 7-IND SOCIAL INTERACTION: SOCIAL INTERACTION - STEP 1: Does the patient require a helper to interact with others in social and therapeutic situations? No. SOCIAL INTERACTION - STEP 2: Does the patient need extra time in social situations, OR does s/he interact with staff, other patien ts, and family members ONLY in structured environments, OR does s/he require medication for social in teraction? No. SOCIAL INTERACTION - SCORE: 7-IND PROBLEM SOLVING: PROBLEM SOLVING - STEP 1: Does the patient need help to solve complex problems such as managing a checking account or confronti ng interpersonal problems? No. PROBLEM SOLVING - STEP 2: Does the patient require extra time to make decisions or solve problems, OR does s/he have slight dif ficulty reading, initiating, or self-correcting in unfamiliar situations? No. PROBLEM SOLVING - SCORE: 7-IND MEMORY: MEMORY - STEP 1: Does the patient need help to remember frequently encountered people, daily routines, and executing r equests? No. MEMORY - STEP 2: Does the patient have slight difficulty recognizing frequently encountered people, daily routines, or executing requests without the need for repetition or using self-initiated or environmental cues to remember? No. MEMORY - SCORE: 7-IND
[2018-03-27] MEDS: POTASSIUM CL SA 10 MEQ TAB PO SCH ×2 (08:27→20:19)
[2018-03-27] MEDS: SPIRONOLACTONE 25 MG TABLET PO SCH (08:27)
[2018-03-27] MEDS: LOSARTAN POTASSIUM 50 MG TABLET PO SCH (08:27)
[2018-03-27] MEDS: FERROUS SULFATE 325 MG TAB PO SCH (08:27)
[2018-03-27] MEDS: FE SULF/FA/VIT B COMP & C TAB PO SCH (08:28)
[2018-03-27] MEDS: CARBAMAZEPINE 200 MG TAB PO SCH ×3 (08:28→20:20)
[2018-03-27] MEDS: GABAPENTIN 100 MG CAP PO SCH ×3 (08:28→20:19)
[2018-03-27] MEDS: BISOPROLOL 5 MG TABLET PO SCH (08:28)
[2018-03-27] MEDS: DOCUSATE NA 100 MG CAP PO SCH (08:29)
[2018-03-27] MEDS: PROMOD 30 ML DOSE PO SCH ×2 (08:29→20:22)
[2018-03-27] MEDS: ENOXAPARIN 100 MG/ML SYR SQ SCH (09:34)
[2018-03-27] MEDS: TRIAMCINOLONE ACETONIDE IH SCH (09:34)
--- NOTE | 2018-03-27 12:36 | P.PN ---
Subjective Date of Service: 03/27/18 Chief Complaint: RIGHT LEG PAIN Subjective: Improving Review of Systems 10-point ROS is otherwise unremarkable Physical Examination - Vital Signs Temperature: 98 F Blood Pressure: 155/67 Pulse: 89 Respirations: 16 Pulse Ox (%): 98 - Physical Exam General: Alert, In no apparent distress HEENT: Atraumatic, PERRLA, EOMI Neck: Supple, JVD not distended Respiratory: Clear to auscultation bilaterally, Normal air movement Cardiovascular: Regular rate/rhythm, Normal S1 S2, Edema (RIGHT LEG STABLE.) Gastrointestinal: Normal bowel sounds, No tenderness Musculoskeletal: No tenderness Integumentary: No rashes Neurological: Normal speech, Normal tone, Normal affect Lymphatics: No axilla or inguinal lymphadenopathy - Studies Medications List Reviewed: Yes Assessment And Plan - Current Problems (Diagnosis) (1) HTN (hypertension) Onset Date: 03/22/18 Current Visit: Yes Status: Acute Qualifiers: Hypertension type: essential hypertension Qualified Code(s): I10 - Essential (primary) hypertension (2) Hip fracture, right Onset Date: 03/22/18 Current Visit: Yes Status: Acute Plan: RESUME PT LOW K- FRUIT DAILY CHECK TWICE A WEEK SHE IS NOT ON DIURETICS. Qualifiers: Fracture type: closed (3) Right leg pain Current Visit: Yes Status: Acute Plan: ORDER STAT VENOUS DOPPLER POSITIVE STOPPED LOVENOX STARTED ELIQUIS PO BID 10 MG. STAT. (4) Right leg DVT Current Visit: Yes Status: Acute Plan: LOVENOX BID 90 MG WATCH HG DAILY DR. ANN WANTS TO GIVE THIS FOR TWO DAYS. SHE IS IN MORE PAIN THAN YESTERDAY. WILL RESUME ELIQUIS LATER. LOVNOX SC BID HG LOWER RIGHT LEG PAIN , DVT, LOVENOX SC BID. Qualifiers: Affected thrombotic vein of extremity: popliteal (5) Anemia in chronic illness Current Visit: Yes Status: Acute Plan: UNLCLEAR WHY HER FERRITIN IS NORMAL B12 NORMAL WILL CHECK OTTONIEL, ANTI DS DNA . SHE HAS CHRONIC SKIN LESIONS OFF AND ON. STABLE, IMPROVED. REDUCED FREQ OF LAB NOT HAPPY ABOUT CHECK OF HG I TOLD HER I HAD TO CHECK HG IT WAS DROPPING. WILL DO TWICE A WEEK NOW. (6) Hypokalemia Current Visit: Yes Status: Acute Plan: UNUSUAL TO HAVE THIS WITH BOTH LOSARTAN AND SPIRONOLACTONE ONE. SHE SEEMS TO HAVE HIGH ALDOSTERONE LEVELS. WILL CHECK ABD SONOGRAM , ADRENAL.S
--- NOTE | 2018-03-27 15:47 | FAST ---
SHIFT START DATE/TIME: 03/27/2018 07:00 (CDT) SHIFT END DATE/TIME: 03/27/2018 19:00 (CDT) NAME DOC HINKLE DATE OF : 1945 DATE OF ADMISSION: 03/20/2018 11:23 (CDT) PHONE: AGE: 72 N# [id number] GENDER: Female ENCOUNTER PHYSICIAN: Dr. Joao Robles M.D. ADMISSION DIAGNOSIS: - Orthopaedic Disorders 08 - Unilateral Hip Fracture (08.11) RIGHT HIP FEMORAL NECK FRACTURE. EATING: EATING - STEP 1: Does the patient require assistance when eating? Yes. EATING - STEP 2: Does the patient require the assistance of a helper? No, patient only requires an assistive device, O R s/he takes more than reasonable time to eat, OR there is a safety concern, OR s/he requires modifie d food consistency EATING - SCORE: 6-CADEN GROOMING: Comb/brush hair Oral care Wash, rinse, and dry face Wash, rinse, and dry hands GROOMING - STEP 1: Does the patient require assistance when grooming? Yes. GROOMING - STEP 2: Does the patient require the assistance of a helper? No. The patient only requires an assistive devic e, OR takes more than reasonable time to groom, OR there is a concern for safety as the patient groom s GROOMING - SCORE: 6-CADEN BATHING: Activity did not occur on this shift BATHING - SCORE: 0-UNK DRESSING - UPPER BODY: T-shirt/pullover shirt (four steps) ARTICLES SCORE Total number of steps: 4 DRESSING - UPPER BODY - STEP 1: Does the patient require help when dressing above the waist? Yes. DRESSING - UPPER BODY - STEP 2: Does the patient require the assistance of a helper? No. Patient only requires an assistive device, s uch as a button hook, velcro, or nude model. OR s/he takes more than reasonable time as s/he dresses the upper body. OR there is a concern for safety when s/he dresses the upper body DRESSING - UPPER BODY - SCORE: 6-CADEN DRESSING - LOWER BODY: Elastic waist pants (three steps) Sock - Left foot (one step) Sock - Right foot (one step) Underwear (three steps) ARTICLES SCORE Total number of steps: 8 DRESSING - LOWER BODY - STEP 1: Does the patient require help when dressing below the waist? Yes. DRESSING - LOWER BODY - STEP 2: Does the patient require the assistance of a helper? No. Patient requires an assistive device such as a nude model. OR s/he takes more than reasonable time as s/he dresses the lower body, OR there is a con cern for safety when s/he dresses the lower body DRESSING - LOWER BODY - SCORE: 6-CADEN TOILETING: TOILETING - STEP 1: Does the patient require assistance with toileting? Yes. TOILETING - STEP 2: Does the patient require the assistance of a helper? Yes. TOILETING - STEP 3: How much assistance does the patient require from the helper? Only supervision TOILETING - SCORE: 5-SUP BLADDER MANAGEMENT: BLADDER MANAGEMENT - STEP 1: Does the patient control the bladder completely and intentionally without equipment or devices or med ications, and is always continent? No. BLADDER MANAGEMENT - STEP 2: Does the patient require the assistance of a helper? Yes. BLADDER MANAGEMENT - STEP 3: How much assistance does the patient require from the helper? Only supervision, stand-by, cuing, or c oaxing BLADDER MANAGEMENT - SCORE: 5-SUP BLADDER MANAGEMENT - FREQUENCY OF ACCIDENTS: BLADDER MANAGEMENT(FA) - STEP 1: How many accidents has the patient had during the current shift? 0 BOWEL MANAGEMENT: Activity did not occur on this shift BOWEL MANAGEMENT - SCORE: 7-IND BOWEL MANAGEMENT - FREQUENCY OF ACCIDENTS: BOWEL MANAGEMENT(FA) - STEP 1: How many accidents has the patient had during the current shift? 0 TRANSFERS: BED, CHAIR, WHEELCHAIR: TRANSFERS: BED, CHAIR, WHEELCHAIR - STEP 1: Does the patient require assistance with bed, chair, or wheelchair transfers? Yes. TRANSFERS: BED, CHAIR, WHEELCHAIR - STEP 2: Does the patient require the assistance of a helper? Yes. TRANSFERS: BED, CHAIR, WHEELCHAIR - STEP 3: How much assistance does the patient require from the helper? Only supervision TRANSFERS: BED, CHAIR, WHEELCHAIR - SCORE: 5-SUP TRANSFERS: TOILET: TRANSFERS: TOILET - STEP 1: Does the patient require assistance with toilet transfers? Yes. TRANSFERS: TOILET - STEP 2: Does the patient require the assistance of a helper? Yes. TRANSFERS: TOILET - STEP 3: How much assistance does the patient require from the helper? Only supervision, cuing, coaxing, OR he lp to set out transfer equipment or to lock brakes and/or lift foot rests TRANSFERS: TOILET - SCORE: 5-SUP TRANSFERS: SHOWER: Activity did not occur on this shift TRANSFERS: SHOWER - SCORE: 0-UNK TRANSFERS: TUB: Activity did not occur on this shift TRANSFERS: TUB - SCORE: 0-UNK LOCOMOTION: WALK: Activity did not occur on this shift LOCOMOTION: WALK - SCORE: 0-UNK LOCOMOTION: WHEELCHAIR: LOCOMOTION: WHEELCHAIR - STEP 1: Does the patient need help to go 150 feet in a wheelchair? Yes. LOCOMOTION: WHEELCHAIR - STEP 2: How much assistance does the patient need from the helper? Only supervision, cuing, or coaxing LOCOMOTION: WHEELCHAIR - SCORE: 5-SUP COMPREHENSION: COMPREHENSION: TYPE: Both COMPREHENSION - STEP 1: Does the patient require help to understand complex and abstract ideas (such as current events, finan neal, discharge planning, medical issues, relationships, etc)? No. COMPREHENSION - STEP 2: Does the patient need extra time, require an assistive device (such as glasses, hearing aids, or an a ugmentative communication system), OR does s/he have mild difficulty expressing complex and abstract ideas (including mild dysarthria or mild word-finding problems)? Yes. COMPREHENSION - SCORE: 6-CADEN EXPRESSION EXPRESSION: TYPE: Both EXPRESSION - STEP 1: Does the patient require help expressing complex and abstract ideas (such as current events, finances , discharge planning, medical issues, relationships, etc)? No. EXPRESSION - STEP 2: Does the patient need extra time, require an assistive device (such as augmentive communication syste m or a communication board), OR does s/he have mild difficulty expressing complex and abstract ideas (including mild dysarthria or mild word-find problems)? Yes. EXPRESSION - SCORE: 6-CADEN SOCIAL INTERACTION: SOCIAL INTERACTION - STEP 1: Does the patient require a helper to interact with others in social and therapeutic situations? No. SOCIAL INTERACTION - STEP 2: Does the patient need extra time in social situations, OR does s/he interact with staff, other patien ts, and family members ONLY in structured environments, OR does s/he require medication for social in teraction? Yes, patient needs extra time SOCIAL INTERACTION - SCORE: 6-CADEN PROBLEM SOLVING: PROBLEM SOLVING - STEP 1: Does the patient need help to solve complex problems such as managing a checking account or confronti ng interpersonal problems? Yes. PROBLEM SOLVING - STEP 2: Does the patient solve basic routine problems half or more of the time? Yes. PROBLEM SOLVING - STEP 3: How often does the patient need help to solve basic routine problems? Less than 10% of the time PROBLEM SOLVING - SCORE: 5-SUP MEMORY: MEMORY - STEP 1: Does the patient need help to remember frequently encountered people, daily routines, and executing r equests? Yes. MEMORY - STEP 2: How often does the patient need help to remember frequently encountered people, daily routines, and e xecuting requests? Less than 10% of the time MEMORY - SCORE: 5-SUP SIGNATURE PANEL: The following modified sections: Eating - Score, Grooming - Score, Bathing - Score, Dressing - Upper Body - Score, Dressing - Lower Body - Score, Toileting - Score, Bladder Management - Score, Bowel Man agement - Score, Transfers: Bed, Chair, Wheelchair - Score, Transfers: Toilet - Score, Transfers: Coby wer - Score, Transfers: Tub - Score, Locomotion: Walk - Score, Locomotion: Wheelchair - Score, Compre hension - Score, Expression - Score, Social Interaction - Score, Problem Solving - Score, Memory - Sc ore were [electronically] signed by Cesia Dumont C.N.A. on WedMar 27 2018 14:46:28 T-0500 (Centra l Daylight Time)
[2018-03-27] MEDS: APIXABAN 5 MG TABLET PO SCH (20:19)
--- NOTE | 2018-03-28 03:24 | FAST ---
SHIFT START DATE/TIME: 03/27/2018 19:00 (CDT) SHIFT END DATE/TIME: 03/28/2018 07:00 (CDT) NAME DOC HINKLE DATE OF : 1945 DATE OF ADMISSION: 03/20/2018 11:23 (CDT) PHONE: AGE: 72 [facility]# [id number] GENDER: Female ENCOUNTER PHYSICIAN: Dr. Joao Robles M.D. ADMISSION DIAGNOSIS: - Orthopaedic Disorders 08 - Unilateral Hip Fracture (08.11) RIGHT HIP FEMORAL NECK FRACTURE. EATING: Activity did not occur on this shift EATING - SCORE: 0-UNK GROOMING: Activity did not occur on this shift GROOMING - SCORE: 0-UNK BATHING: Activity did not occur on this shift BATHING - SCORE: 0-UNK DRESSING - UPPER BODY: Patient is not dressing in public clothing ARTICLES SCORE Total number of steps: 0 DRESSING - UPPER BODY - SCORE: 0-UNK DRESSING - LOWER BODY: Patient is not dressing in public clothing ARTICLES SCORE Total number of steps: 0 DRESSING - LOWER BODY - SCORE: 0-UNK TOILETING: TOILETING - STEP 1: Does the patient require assistance with toileting? Yes. TOILETING - STEP 2: Does the patient require the assistance of a helper? Yes. TOILETING - STEP 3: How much assistance does the patient require from the helper? Hands-on assistance from the helper TOILETING - STEP 4: Of the 3 tasks: 1) Adjusting clothing prior to use, 2) Cleansing of perineal area, 3) Adjusting clot ruperto after use; How many tasks does the patient perform WITHOUT assistance of the helper? Three tasks with steadying assistance from the helper TOILETING - SCORE: 4-MIN BLADDER MANAGEMENT: BLADDER MANAGEMENT - STEP 1: Does the patient control the bladder completely and intentionally without equipment or devices or med ications, and is always continent? No. BLADDER MANAGEMENT - STEP 2: Does the patient require the assistance of a helper? Yes. BLADDER MANAGEMENT - STEP 3: How much assistance does the patient require from the helper? Patient requires contact assistance fro m the helper BLADDER MANAGEMENT - STEP 4: How much contact assistance does the patient require from the helper? Patient requires minimal assist ance to maintain an external device - by positioning, and the patient performs 75% or more of bladder management tasks, while the helper provides less than 25% of the assistance to position patient on / off bedpan BLADDER MANAGEMENT - SCORE: 4-MIN BOWEL MANAGEMENT: Activity did not occur on this shift BOWEL MANAGEMENT - SCORE: 7-IND TRANSFERS: BED, CHAIR, WHEELCHAIR: TRANSFERS: BED, CHAIR, WHEELCHAIR - STEP 1: Does the patient require assistance with bed, chair, or wheelchair transfers? Yes. TRANSFERS: BED, CHAIR, WHEELCHAIR - STEP 2: Does the patient require the assistance of a helper? Yes. TRANSFERS: BED, CHAIR, WHEELCHAIR - STEP 3: How much assistance does the patient require from the helper? Lifting of the legs TRANSFERS: BED, CHAIR, WHEELCHAIR - STEP 4: How many legs does the patient require the helper to lift? one leg TRANSFERS: BED, CHAIR, WHEELCHAIR - SCORE: 4-MIN TRANSFERS: TOILET: TRANSFERS: TOILET - STEP 1: Does the patient require assistance with toilet transfers? Yes. TRANSFERS: TOILET - STEP 2: Does the patient require the assistance of a helper? Yes. TRANSFERS: TOILET - STEP 3: How much assistance does the patient require from the helper? Patient performs half or more of the tr ansferring tasks TRANSFERS: TOILET - STEP 4: Does the patient need only incidental help such as contact guard or steadying during toilet transfer? No. Patient needs more than incidental help TRANSFERS: TOILET - SCORE: 3-MOD TRANSFERS: SHOWER: Activity did not occur on this shift TRANSFERS: SHOWER - SCORE: 0-UNK TRANSFERS: TUB: Activity did not occur on this shift TRANSFERS: TUB - SCORE: 0-UNK LOCOMOTION: WALK: Activity did not occur on this shift LOCOMOTION: WALK - SCORE: 0-UNK LOCOMOTION: WHEELCHAIR: Activity did not occur on this shift LOCOMOTION: WHEELCHAIR - SCORE: 0-UNK COMPREHENSION: COMPREHENSION: TYPE: Visual COMPREHENSION - STEP 1: Does the patient require help to understand complex and abstract ideas (such as current events, finan neal, discharge planning, medical issues, relationships, etc)? No. COMPREHENSION - STEP 2: Does the patient need extra time, require an assistive device (such as glasses, hearing aids, or an a ugmentative communication system), OR does s/he have mild difficulty expressing complex and abstract ideas (including mild dysarthria or mild word-finding problems)? Yes. COMPREHENSION - SCORE: 6-CADEN EXPRESSION EXPRESSION: TYPE: Vocal EXPRESSION - STEP 1: Does the patient require help expressing complex and abstract ideas (such as current events, finances , discharge planning, medical issues, relationships, etc)? No. EXPRESSION - STEP 2: Does the patient need extra time, require an assistive device (such as augmentive communication syste m or a communication board), OR does s/he have mild difficulty expressing complex and abstract ideas (including mild dysarthria or mild word-find problems)? No. EXPRESSION - SCORE: 7-IND SOCIAL INTERACTION: SOCIAL INTERACTION - STEP 1: Does the patient require a helper to interact with others in social and therapeutic situations? No. SOCIAL INTERACTION - STEP 2: Does the patient need extra time in social situations, OR does s/he interact with staff, other patien ts, and family members ONLY in structured environments, OR does s/he require medication for social in teraction? No. SOCIAL INTERACTION - SCORE: 7-IND PROBLEM SOLVING: PROBLEM SOLVING - STEP 1: Does the patient need help to solve complex problems such as managing a checking account or confronti ng interpersonal problems? No. PROBLEM SOLVING - STEP 2: Does the patient require extra time to make decisions or solve problems, OR does s/he have slight dif ficulty reading, initiating, or self-correcting in unfamiliar situations? No. PROBLEM SOLVING - SCORE: 7-IND MEMORY: MEMORY - STEP 1: Does the patient need help to remember frequently encountered people, daily routines, and executing r equests? No. MEMORY - STEP 2: Does the patient have slight difficulty recognizing frequently encountered people, daily routines, or executing requests without the need for repetition or using self-initiated or environmental cues to remember? No. MEMORY - SCORE: 7-IND
[2018-03-28 05:46] LABS: Absolute Lymphocytes (CBC) 2.1 K/uL (0.7-4.9); Absolute Monocytes 0.7 K/uL (0.1-1.3); Absolute Neutrophil 5.4 K/uL (1.8-8.0); Basophils % 0.9 % (0-1.3); Eosinophils % 3.1 % (0-4.4); Hematocrit 30.7 % (36.0-45.0); Lymphocytes % 24.1 % (15.3-44.8); MCH 27.4 pg (27.0-35.0); MCV 84.8 fL (80-100); MPV 7.3 fL (7.6-11.3); Monocytes % 8.4 % (3.3-12.3); RBC Red Blood Cell Count 3.61 M/uL (3.86-4.86)
[2018-03-28 05:57] LABS: Potassium 4.7 mmol/L (3.5-5.1)
[2018-03-28] MEDS: ACETAMINOPHEN 500 MG TAB PO PRN (07:41)
[2018-03-28] MEDS: POTASSIUM CL SA 10 MEQ TAB PO SCH ×2 (07:52→20:07)
[2018-03-28] MEDS: DOCUSATE NA 100 MG CAP PO SCH (07:52)
[2018-03-28] MEDS: APIXABAN 5 MG TABLET PO SCH ×2 (07:52→20:07)
[2018-03-28] MEDS: FERROUS SULFATE 325 MG TAB PO SCH (07:52)
[2018-03-28] MEDS: FE SULF/FA/VIT B COMP & C TAB PO SCH (07:52)
[2018-03-28] MEDS: LOSARTAN POTASSIUM 50 MG TABLET PO SCH (07:53)
[2018-03-28] MEDS: BISOPROLOL 5 MG TABLET PO SCH (07:53)
[2018-03-28] MEDS: SPIRONOLACTONE 25 MG TABLET PO SCH (07:53)
[2018-03-28] MEDS: PROMOD 30 ML DOSE PO SCH ×2 (07:57→20:08)
[2018-03-28] MEDS: TRIAMCINOLONE ACETONIDE IH SCH (07:58)
[2018-03-28] MEDS: GABAPENTIN 100 MG CAP PO SCH ×3 (07:59→20:07)
[2018-03-28] MEDS: CARBAMAZEPINE 200 MG TAB PO SCH ×3 (07:59→20:07)
--- NOTE | 2018-03-28 16:42 | FAST ---
SHIFT START DATE/TIME: 03/28/2018 07:00 (CDT) SHIFT END DATE/TIME: 03/28/2018 19:00 (CDT) NAME DOC HINKLE DATE OF : 1945 DATE OF ADMISSION: 03/20/2018 11:23 (CDT) PHONE: AGE: 72 [employer] [facility] [employer] [facility]# [id number] GENDER: Female ENCOUNTER PHYSICIAN: Dr. Joao Robles M.D. ADMISSION DIAGNOSIS: - Orthopaedic Disorders 08 - Unilateral Hip Fracture (08.11) RIGHT HIP FEMORAL NECK FRACTURE. EATING: EATING - STEP 1: Does the patient require assistance when eating? Yes. EATING - STEP 2: Does the patient require the assistance of a helper? No, patient only requires an assistive device, O R s/he takes more than reasonable time to eat, OR there is a safety concern, OR s/he requires modifie d food consistency EATING - SCORE: 6-CADEN GROOMING: Comb/brush hair Oral care GROOMING - STEP 1: Does the patient require assistance when grooming? Yes. GROOMING - STEP 2: Does the patient require the assistance of a helper? No. The patient only requires an assistive devic e, OR takes more than reasonable time to groom, OR there is a concern for safety as the patient groom s GROOMING - SCORE: 6-CADEN BATHING: Activity did not occur on this shift BATHING - SCORE: 0-UNK DRESSING - UPPER BODY: Activity did not occur on this shift ARTICLES SCORE Total number of steps: 0 DRESSING - UPPER BODY - SCORE: 0-UNK DRESSING - LOWER BODY: Activity did not occur on this shift ARTICLES SCORE Total number of steps: 0 DRESSING - LOWER BODY - SCORE: 0-UNK TOILETING: TOILETING - STEP 1: Does the patient require assistance with toileting? Yes. TOILETING - STEP 2: Does the patient require the assistance of a helper? No. TOILETING - SCORE: 6-CADEN BLADDER MANAGEMENT: BLADDER MANAGEMENT - STEP 1: Does the patient control the bladder completely and intentionally without equipment or devices or med ications, and is always continent? No. BLADDER MANAGEMENT - STEP 2: Does the patient require the assistance of a helper? No, patient requires and independently uses an a ssistive device, such as a urinal, bedpan, bedside commode, catheter, absorbent pad, or collecting de vice BLADDER MANAGEMENT - SCORE: 6-CADEN BOWEL MANAGEMENT: Activity did not occur on this shift BOWEL MANAGEMENT - SCORE: 7-IND TRANSFERS: BED, CHAIR, WHEELCHAIR: TRANSFERS: BED, CHAIR, WHEELCHAIR - STEP 1: Does the patient require assistance with bed, chair, or wheelchair transfers? Yes. TRANSFERS: BED, CHAIR, WHEELCHAIR - STEP 2: Does the patient require the assistance of a helper? No. Patient only requires an assistive device fo r bed, chair, wheelchair transfers such as a sliding board, grab bar, or brace, OR s/he takes more th an reasonable time, OR there is a safety concern when s/he performs the transfers TRANSFERS: BED, CHAIR, WHEELCHAIR - SCORE: 6-CADEN TRANSFERS: TOILET: TRANSFERS: TOILET - STEP 1: Does the patient require assistance with toilet transfers? Yes. TRANSFERS: TOILET - STEP 2: Does the patient require the assistance of a helper? Yes. TRANSFERS: TOILET - STEP 3: How much assistance does the patient require from the helper? Only supervision, cuing, coaxing, OR he lp to set out transfer equipment or to lock brakes and/or lift foot rests TRANSFERS: TOILET - SCORE: 5-SUP TRANSFERS: SHOWER: Activity did not occur on this shift TRANSFERS: SHOWER - SCORE: 0-UNK TRANSFERS: TUB: Activity did not occur on this shift TRANSFERS: TUB - SCORE: 0-UNK LOCOMOTION: WALK: Activity did not occur on this shift LOCOMOTION: WALK - SCORE: 0-UNK LOCOMOTION: WHEELCHAIR: Activity did not occur on this shift LOCOMOTION: WHEELCHAIR - SCORE: 0-UNK COMPREHENSION: COMPREHENSION - SCORE: 0-UNK EXPRESSION EXPRESSION - SCORE: 0-UNK SOCIAL INTERACTION: SOCIAL INTERACTION - SCORE: 0-UNK PROBLEM SOLVING: PROBLEM SOLVING - SCORE: 0-UNK MEMORY: MEMORY - SCORE: 0-UNK SIGNATURE PANEL: The following modified sections: Eating - Score, Grooming - Score, Bathing - Score, Dressing - Upper Body - Score, Dressing - Lower Body - Score, Toileting - Score, Bladder Management - Score, Bowel Man agement - Score, Transfers: Bed, Chair, Wheelchair - Score, Transfers: Toilet - Score, Transfers: Coby wer - Score, Transfers: Tub - Score, Locomotion: Walk - Score, Locomotion: Wheelchair - Score, Compre hension - Score, Expression - Score, Social Interaction - Score, Problem Solving - Score, Memory - Sc ore were [electronically] signed by Tigre Wilson on WedMar 28 2018 15:41:32 GMT-0500 (Central Daylight Time)
--- NOTE | 2018-03-28 16:53 | FAST ---
ENCOUNTER DATE AND TIME: 03/28/2018 08:00 (CDT) NAME DOC HINKLE DATE OF : 1945 DATE OF ADMISSION: 03/20/2018 11:23 (CDT) PHONE: AGE: 72 N# [id number] GENDER: Female ENCOUNTER PHYSICIAN: Dr. Joao Robles M.D. ADMISSION DIAGNOSIS: - Orthopaedic Disorders 08 - Unilateral Hip Fracture (08.11) RIGHT HIP FEMORAL NECK FRACTURE. EATING: Activity did not occur on this shift EATING - SCORE: 0-UNK GROOMING: Activity did not occur on this shift GROOMING - SCORE: 0-UNK BATHING: Activity did not occur on this shift BATHING - SCORE: 0-UNK DRESSING - UPPER BODY: Activity did not occur on this shift Patient is not dressing in public clothing ARTICLES SCORE Total number of steps: 0 DRESSING - UPPER BODY - SCORE: 0-UNK DRESSING - LOWER BODY: Activity did not occur on this shift Patient is not dressing in public clothing ARTICLES SCORE Total number of steps: 0 DRESSING - LOWER BODY - SCORE: 0-UNK TOILETING: Activity did not occur on this shift TOILETING - SCORE: 0-UNK BLADDER MANAGEMENT: Activity did not occur on this shift BLADDER MANAGEMENT - SCORE: 7-IND BOWEL MANAGEMENT: Activity did not occur on this shift BOWEL MANAGEMENT - SCORE: 7-IND TRANSFERS: BED, CHAIR, WHEELCHAIR: TRANSFERS: BED, CHAIR, WHEELCHAIR - STEP 1: Does the patient require assistance with bed, chair, or wheelchair transfers? Yes. TRANSFERS: BED, CHAIR, WHEELCHAIR - STEP 2: Does the patient require the assistance of a helper? No. Patient only requires an assistive device fo r bed, chair, wheelchair transfers such as a sliding board, grab bar, or brace, OR s/he takes more th an reasonable time, OR there is a safety concern when s/he performs the transfers TRANSFERS: BED, CHAIR, WHEELCHAIR - SCORE: 6-CADEN TRANSFERS: TOILET: TRANSFERS: TOILET - STEP 1: Does the patient require assistance with toilet transfers? Yes. TRANSFERS: TOILET - STEP 2: Does the patient require the assistance of a helper? No. Patient only requires an assistive device cunningham ch as a grab bar or special seat, OR s/he takes more than reasonable time to perform toilet transfers , OR there is a safety concern when s/he performs toilet transfers. TRANSFERS: TOILET - SCORE: 6-CADEN TRANSFERS: SHOWER: Activity did not occur on this shift TRANSFERS: SHOWER - SCORE: 0-UNK TRANSFERS: TUB: Activity did not occur on this shift TRANSFERS: TUB - SCORE: 0-UNK LOCOMOTION: WALK: LOCOMOTION: WALK - STEP 1: Does the patient need help to walk 150 feet? No. LOCOMOTION: WALK - STEP 2: Does the patient need an assistive device (such as an orthosis, prosthesis, crutches, or walker) to g o 150 feet, OR does s/he take more than reasonable time, OR is there a concern for safety? Yes, the p atient needs an assistive device LOCOMOTION: WALK - SCORE: 6-CADEN LOCOMOTION: WHEELCHAIR: Activity did not occur on this shift LOCOMOTION: WHEELCHAIR - SCORE: 0-UNK LOCOMOTION: STAIRS: LOCOMOTION: STAIRS - STEP 1: Does the patient need help to go up and down 12 to 14 stairs? No. LOCOMOTION: STAIRS - STEP 2: Does the patient require an assistive device - such as handrails or cane - to go up and down one flig ht of stairs, OR does s/he take more than reasonable time, OR is there a concern for safety? Yes, the patient requires an assistive device LOCOMOTION: STAIRS - SCORE: 6-CADEN COMPREHENSION: COMPREHENSION - SCORE: 0-UNK EXPRESSION EXPRESSION - SCORE: 0-UNK SOCIAL INTERACTION: SOCIAL INTERACTION - SCORE: 0-UNK PROBLEM SOLVING: PROBLEM SOLVING - SCORE: 0-UNK MEMORY: MEMORY - SCORE: 0-UNK SIGNATURE PANEL: The following modified sections: Transfers: Bed, Chair, Wheelchair - Score, Transfers: Toilet - Score , Locomotion: Walk - Score, Locomotion: Wheelchair - Score, Locomotion: Stairs - Score were [electron [email or web address]] signed by Mauro Rodriguez PT on WedMar 28 2018 15:52:59 GMT-0500 (Central Daylight Time)
--- NOTE | 2018-03-28 17:22 | FAST ---
ENCOUNTER DATE AND TIME: 03/24/2018 08:00 (CDT) NAME DOC HINKLE DATE OF : 1945 DATE OF ADMISSION: 03/20/2018 11:23 (CDT) PHONE: AGE: 72 N# [id number] GENDER: Female ENCOUNTER PHYSICIAN: Dr. Joao Robles M.D. ADMISSION DIAGNOSIS: - Orthopaedic Disorders 08 - Unilateral Hip Fracture (08.11) RIGHT HIP FEMORAL NECK FRACTURE. EATING: EATING - STEP 1: Does the patient require assistance when eating? No. EATING - SCORE: 7-IND GROOMING: Comb/brush hair Oral care Wash, rinse, and dry face Wash, rinse, and dry hands GROOMING - STEP 1: Does the patient require assistance when grooming? No. GROOMING - SCORE: 7-IND BATHING: Abdomen Buttocks Chest Left arm Left lower leg and foot Left upper leg Perineal area Right arm Right lower leg and foot Right upper leg BATHING - STEP 1: Does the patient require assistance when bathing? Yes. BATHING - STEP 2: Does the patient require the assistance of a helper? Yes. BATHING - STEP 3: How much assistance does the patient require from the helper? Only supervision, cuing, coaxing, instr uctions, encouragement BATHING - SCORE: 5-SUP DRESSING - UPPER BODY: Bra (three steps) T-shirt/pullover shirt (four steps) ARTICLES SCORE Total number of steps: 7 DRESSING - UPPER BODY - STEP 1: Does the patient require help when dressing above the waist? Yes. DRESSING - UPPER BODY - STEP 2: Does the patient require the assistance of a helper? Yes. DRESSING - UPPER BODY - STEP 3: Does the helper touch the patient while dressing? No. DRESSING - UPPER BODY - SCORE: 5-SUP DRESSING - LOWER BODY: Elastic waist pants (three steps) Sock - Left foot (one step) Sock - Right foot (one step) Underwear (three steps) ARTICLES SCORE Total number of steps: 8 DRESSING - LOWER BODY - STEP 1: Does the patient require help when dressing below the waist? Yes. DRESSING - LOWER BODY - STEP 2: Does the patient require the assistance of a helper? Yes. DRESSING - LOWER BODY - STEP 3: Does the helper touch the patient while dressing? Yes. DRESSING - LOWER BODY - STEP 4: How many of the total steps does the patient complete on his/her own? 6 DRESSING - LOWER BODY - SCORE: 4-MIN TOILETING: TOILETING - STEP 1: Does the patient require assistance with toileting? Yes. TOILETING - STEP 2: Does the patient require the assistance of a helper? Yes. TOILETING - STEP 3: How much assistance does the patient require from the helper? Only supervision TOILETING - SCORE: 5-SUP BLADDER MANAGEMENT: Activity did not occur on this shift BLADDER MANAGEMENT - SCORE: 7-IND BOWEL MANAGEMENT: Activity did not occur on this shift BOWEL MANAGEMENT - SCORE: 7-IND TRANSFERS: BED, CHAIR, WHEELCHAIR: Activity did not occur on this shift TRANSFERS: BED, CHAIR, WHEELCHAIR - SCORE: 0-UNK TRANSFERS: TOILET: TRANSFERS: TOILET - STEP 1: Does the patient require assistance with toilet transfers? Yes. TRANSFERS: TOILET - STEP 2: Does the patient require the assistance of a helper? Yes. TRANSFERS: TOILET - STEP 3: How much assistance does the patient require from the helper? Only supervision, cuing, coaxing, OR he lp to set out transfer equipment or to lock brakes and/or lift foot rests TRANSFERS: TOILET - SCORE: 5-SUP TRANSFERS: SHOWER: TRANSFERS: SHOWER - STEP 1: Does the patient require assistance with shower transfers? Yes. TRANSFERS: SHOWER - STEP 2: Does the patient require the assistance of a helper? Yes. TRANSFERS: SHOWER - STEP 3: How much assistance does the patient require from the helper? Only supervision, cuing, coaxing, or he lp to set out transfer equipment or to lock brakes and/or lift foot rests TRANSFERS: SHOWER - SCORE: 5-SUP TRANSFERS: TUB: Activity did not occur on this shift TRANSFERS: TUB - SCORE: 0-UNK LOCOMOTION: WALK: Activity did not occur on this shift LOCOMOTION: WALK - SCORE: 0-UNK LOCOMOTION: WHEELCHAIR: Activity did not occur on this shift LOCOMOTION: WHEELCHAIR - SCORE: 0-UNK LOCOMOTION: STAIRS: Activity did not occur on this shift LOCOMOTION: STAIRS - SCORE: 0-UNK COMPREHENSION: COMPREHENSION: TYPE: Both COMPREHENSION - STEP 1: Does the patient require help to understand complex and abstract ideas (such as current events, finan neal, discharge planning, medical issues, relationships, etc)? No. COMPREHENSION - STEP 2: Does the patient need extra time, require an assistive device (such as glasses, hearing aids, or an a ugmentative communication system), OR does s/he have mild difficulty expressing complex and abstract ideas (including mild dysarthria or mild word-finding problems)? No. COMPREHENSION - SCORE: 7-IND EXPRESSION EXPRESSION: TYPE: Both EXPRESSION - STEP 1: Does the patient require help expressing complex and abstract ideas (such as current events, finances , discharge planning, medical issues, relationships, etc)? No. EXPRESSION - STEP 2: Does the patient need extra time, require an assistive device (such as augmentive communication syste m or a communication board), OR does s/he have mild difficulty expressing complex and abstract ideas (including mild dysarthria or mild word-find problems)? No. EXPRESSION - SCORE: 7-IND SOCIAL INTERACTION: SOCIAL INTERACTION - STEP 1: Does the patient require a helper to interact with others in social and therapeutic situations? No. SOCIAL INTERACTION - STEP 2: Does the patient need extra time in social situations, OR does s/he interact with staff, other patien ts, and family members ONLY in structured environments, OR does s/he require medication for social in teraction? No. SOCIAL INTERACTION - SCORE: 7-IND PROBLEM SOLVING: PROBLEM SOLVING - STEP 1: Does the patient need help to solve complex problems such as managing a checking account or confronti ng interpersonal problems? No. PROBLEM SOLVING - STEP 2: Does the patient require extra time to make decisions or solve problems, OR does s/he have slight dif ficulty reading, initiating, or self-correcting in unfamiliar situations? No. PROBLEM SOLVING - SCORE: 7-IND MEMORY: MEMORY - STEP 1: Does the patient need help to remember frequently encountered people, daily routines, and executing r equests? No. MEMORY - STEP 2: Does the patient have slight difficulty recognizing frequently encountered people, daily routines, or executing requests without the need for repetition or using self-initiated or environmental cues to remember? No. MEMORY - SCORE: 7-IND SIGNATURE PANEL: The following modified sections: Eating - Score, Grooming - Score, Bathing - Score, Dressing - Upper Body - Score, Dressing - Lower Body - Score, Toileting - Score, Transfers: Bed, Chair, Wheelchair - S core, Transfers: Toilet - Score, Transfers: Shower - Score, Transfers: Tub - Score, Comprehension - S core, Expression - Score, Social Interaction - Score, Problem Solving - Score, Memory - Score were [e lectronically] signed by Izabela Callahan OT on WedMar 28 2018 16:22:17 T-0500 (Central Daylight T [place])
--- NOTE | 2018-03-28 18:03 | P.PN ---
Subjective Date of Service: 03/28/18 Chief Complaint: RIGHT LEG PAIN Subjective: Improving (SOFTER) Review of Systems 10-point ROS is otherwise unremarkable Physical Examination - Vital Signs Temperature: 97.2 F Blood Pressure: 123/68 Pulse: 92 Respirations: 16 Pulse Ox (%): 96 - Physical Exam General: Mild distress HEENT: Atraumatic, PERRLA, EOMI Neck: Supple, JVD not distended Respiratory: Clear to auscultation bilaterally, Normal air movement Cardiovascular: Regular rate/rhythm, Normal S1 S2 Gastrointestinal: Normal bowel sounds, No tenderness Musculoskeletal: No tenderness Integumentary: No rashes Neurological: Normal speech, Normal tone, Normal affect Lymphatics: No axilla or inguinal lymphadenopathy - Studies Laboratory Data (last 24 hrs) 03/28/18 05:30: Sodium 139, Potassium 4.7, BUN 13, Creatinine 0.70, Glucose 110 H 03/28/18 05:30: WBC 8.5 D, Hgb 9.9 L, Hct 30.7 L, Plt Count 719 H D Medications List Reviewed: Yes Assessment And Plan - Current Problems (Diagnosis) (1) HTN (hypertension) Onset Date: 03/22/18 Current Visit: Yes Status: Acute Qualifiers: Hypertension type: essential hypertension Qualified Code(s): I10 - Essential (primary) hypertension (2) Hip fracture, right Onset Date: 03/22/18 Current Visit: Yes Status: Acute Plan: RESUME PT LOW K- FRUIT DAILY CHECK TWICE A WEEK SHE IS NOT ON DIURETICS. Qualifiers: Fracture type: closed (3) Right leg pain Current Visit: Yes Status: Acute Plan: ORDER STAT VENOUS DOPPLER POSITIVE STOPPED LOVENOX STARTED ELIQUIS PO BID 10 MG. STAT. (4) Right leg DVT Current Visit: Yes Status: Acute Plan: LOVENOX BID 90 MG WATCH HG DAILY DR. ANN WANTS TO GIVE THIS FOR TWO DAYS. SHE IS IN MORE PAIN THAN YESTERDAY. WILL RESUME ELIQUIS LATER. LOVNOX SC BID HG LOWER RIGHT LEG PAIN , DVT, LOVENOX SC BID. Qualifiers: Affected thrombotic vein of extremity: popliteal (5) Anemia in chronic illness Current Visit: Yes Status: Acute Plan: UNLCLEAR WHY HER FERRITIN IS NORMAL B12 NORMAL WILL CHECK OTTONIEL, ANTI DS DNA . SHE HAS CHRONIC SKIN LESIONS OFF AND ON. STABLE, IMPROVED. REDUCED FREQ OF LAB NOT HAPPY ABOUT CHECK OF HG I TOLD HER I HAD TO CHECK HG IT WAS DROPPING. WILL DO TWICE A WEEK NOW. HG HAS IMPROVED. (6) Hypokalemia Current Visit: Yes Status: Acute Plan: UNUSUAL TO HAVE THIS WITH BOTH LOSARTAN AND SPIRONOLACTONE ONE. SHE SEEMS TO HAVE HIGH ALDOSTERONE LEVELS. WILL CHECK ABD SONOGRAM , ADRENAL.S
--- NOTE | 2018-03-28 19:57 | R.PN ---
ENCOUNTER DATE AND TIME: 03/28/2018 18:54 (CDT) NAME DOC HINKLE DATE OF : 1945 DATE OF ADMISSION: 03/20/2018 11:23 (CDT) RIGHT HIP FEMORAL NECK FRACTURECHIEF COMPLAINT: Right hip fracture SUBJECTIVE: Pt denied any Shortness of Breath. Pt denied any depression. Ambulated 480' with contact guard assistance using a rolling walker. Ambulated 670' with a rolling walker modified independence. VITAL SIGNS Temperature: 97.2 F SBP/DBP: 123/68 Pulse: 92 Resp: 16 MEDICATION ALLERGIES: GUAIFENESIN PENICILLIN Sulfamethoxazole TRIMETHOPRIM ENVIRONMENTAL ALLERGIES: None Known - Substance Allergies None Known - Other Allergies None Known NURSING: - Shower allowing shower - Skin care per protocol PRECAUTIONS: - Weight Bearing Precaution WBAT right LE - Fall Precaution Bed and chair alarm ACTIVITIES OOB only with supervision THERAPIES: - Occupational Therapy Evaluate and Treat. - Physical Therapy Evaluate and Treat. PHYSICAL EXAM - Gen Alert and awake Lying in bed No apparent distress Oriented to: person, time, and place - Skin No skin breakdown. Normacephalic - Eyes No abnormalities - ENMT No abnormalities - Neck No abnormalities - CVS RRR - Chest Clear - Abd Soft - GI + bowel sound Deferred - No abnormalities - Ext Right hip surgical site has good hemostasis. - MSK 4+/5 weakness in right lower extremity - Neuro 4/5 strength right lower extremity. - Psych No abnormalities ASSESSMENT: Pt. is a 72 yo Right-handed white female.Her impairment category is Orthopaedic Disorders 08 - Femur (Shaft) Fracture (08.2).Pre-morbidly, Pt. was independent/mod-I in Social Cognition, Self-Care, [place] motion, Sphincter Control, Transfers Control, and Communication; and she had good Sphincter Control.C urrently, she has deficits of Balance, Locomotion, Endurance, Safety Awareness, Transfers Control, an d Self-Care.Pt. is now referred to [facility] for acute in-patient rehabilitat ion in order to maximize patient's functional independence in activities of daily living, strength, R OM, and mobility.- Rehab Goal Patient has realistic goal of being discharged at assistance level 6-Sherrie to reside at Home with Fam syed/Relatives. MDM/PLAN: - Diet Type Continue Regular - Physical Therapy Decreased range of motion - to improve, our physical therapists will perform initial evaluation of p t's status upon admission and devise an individualized program for increasing patient's Range of [place] on. Gait dysfunction - to improve, our physical therapists will perform initial evaluation of pt's statu s upon admission and devise an individualized program for Gait Training, and Wheel Chair mobility Inability to transfer - to improve, our physical therapists will perform initial evaluation of pt's status upon admission and devise an individualized program for Bed mobility Need for home safety evaluation - to improve, our physical therapists will perform initial evaluatio n of pt's status upon admission and devise an individualized program for Home Evaluation Need in caregiver upon discharge - to improve, our physical therapists will perform initial evaluati on of pt's status upon admission and devise an individualized program for Caregiver Training New precaution - to improve, our physical therapists will perform initial evaluation of pt's status upon admission and devise an individualized program for Patient precaution education Poor balance - to improve, our physical therapists will perform initial evaluation of pt's status up on admission and devise an individualized program for Balance Training Poor endurance - to improve, our physical therapists will perform initial evaluation of pt's status upon admission and devise an individualized program for Endurance Training Weakness - to improve, our physical therapists will perform initial evaluation of pt's status upon a dmission and devise an individualized program for Aquatic Therapy, Neuromuscular Reeducation, and Str engthening Achieving independence - to improve, our physical therapists will perform initial evaluation of pt's status upon admission and devise an individualized program for Community Reintegration Activities - Diet - Liquid Texture Continue Regular - Tube Feed Continue N/A - Weight Bearing Precaution WBAT right LE - Fall Precaution Bed and chair alarm - Skin care per protocol - Diet - Solid Texture Continue Regular - Shower allowing shower - Occupational Therapy ADL deficits - to improve, our occupation therapists will perform initial evaluation of pt's status upon admission and devise an individualized program for Bathing, Bed mobility, Community Reintegratio n, Cooking, Dressing, Eating, Fine Motor Skills, Grooming, Homemaking, Kitchen Mobility, Laundry, Pat ient Education, Safety Awareness, Splinting - Positioning, Transfers(Toilet, Tub, Shower), and Wheel Chair Management Need for anesthesiologist and critical care - to improve, our occupation therapists will perform initial evaluation of pt's status upon admission and devise an individualized program for Caregiver Training Weakness - to improve, our occupation therapists will perform initial evaluation of pt's status upon admission and devise an individualized program for Aquatic Therapy, Balance, Endurance, UE ROM, and UE strengthening FUNCTIONAL STATUS: UPDATED AT WEEKLY TEAM CONFERENCE - Bladder Same accident frequency: 7-Ind - No accidents in the past 7 days - Bowel Same accident frequency: 7-Ind - No accidents in the past 7 days - Walking Same score based on distance walked: 1(<=50ft) - Wheelchair Same score based on distance traveled: 0(N/A) FUNCTIONAL STATUS: - Self-Care A. Eating Ind B. Grooming Sherrie C. Bathing Dot D. Dressing - Upper Dot E. Dressing - Lower Dot F. Toileting Dot - Sphincter Control G: Bladder control Ind H: Bowel control Ind - Transfers Control I. Bed/Chair/Wheelchair maxA J. Toilet maxA K. Tub/Shower ADNO - Locomotion L. Walk/Wheelchair (C) maxA L. Walk/Wheelchair (W) maxA M. Stairs ADNO - Communication N. Comprehension (B) Ind O. Expression (B) Ind - Social Cognition P. Social Interaction Ind Q. Problem Solving Ind R. Memory Ind - Endurance Fair - Balance Fair - Safety Awareness Fair CURRENT FUNC. DEFICITS: Balance, Locomotion, Endurance, Safety Awareness, Transfers Control, and Self-Care SIGNATURE PANEL: (CDT)
[2018-03-28] MEDS: NYSTATIN PWDR 100000 UNIT/GM TOP SCH (20:08)
--- NOTE | 2018-03-29 03:05 | FAST ---
SHIFT START DATE/TIME: 03/28/2018 19:00 (CDT) SHIFT END DATE/TIME: 03/29/2018 07:00 (CDT) NAME DOC HINKLE DATE OF : 1945 DATE OF ADMISSION: 03/20/2018 11:23 (CDT) PHONE: AGE: 72 N# [id number] GENDER: Female ENCOUNTER PHYSICIAN: Dr. Joao Robles M.D. ADMISSION DIAGNOSIS: - Orthopaedic Disorders 08 - Unilateral Hip Fracture (08.11) RIGHT HIP FEMORAL NECK FRACTURE. EATING: Activity did not occur on this shift EATING - SCORE: 0-UNK GROOMING: Activity did not occur on this shift GROOMING - SCORE: 0-UNK BATHING: Activity did not occur on this shift BATHING - SCORE: 0-UNK DRESSING - UPPER BODY: Patient is not dressing in public clothing ARTICLES SCORE Total number of steps: 0 DRESSING - UPPER BODY - SCORE: 0-UNK DRESSING - LOWER BODY: Patient is not dressing in public clothing ARTICLES SCORE Total number of steps: 0 DRESSING - LOWER BODY - SCORE: 0-UNK TOILETING: TOILETING - STEP 1: Does the patient require assistance with toileting? Yes. TOILETING - STEP 2: Does the patient require the assistance of a helper? No. TOILETING - SCORE: 6-CADEN BLADDER MANAGEMENT: BLADDER MANAGEMENT - STEP 1: Does the patient control the bladder completely and intentionally without equipment or devices or med ications, and is always continent? No. BLADDER MANAGEMENT - STEP 2: Does the patient require the assistance of a helper? No, patient requires and independently uses an a ssistive device, such as a urinal, bedpan, bedside commode, catheter, absorbent pad, or collecting de vice BLADDER MANAGEMENT - SCORE: 6-CADEN BOWEL MANAGEMENT: Activity did not occur on this shift BOWEL MANAGEMENT - SCORE: 7-IND TRANSFERS: BED, CHAIR, WHEELCHAIR: TRANSFERS: BED, CHAIR, WHEELCHAIR - STEP 1: Does the patient require assistance with bed, chair, or wheelchair transfers? Yes. TRANSFERS: BED, CHAIR, WHEELCHAIR - STEP 2: Does the patient require the assistance of a helper? No. Patient only requires an assistive device fo r bed, chair, wheelchair transfers such as a sliding board, grab bar, or brace, OR s/he takes more th an reasonable time, OR there is a safety concern when s/he performs the transfers TRANSFERS: BED, CHAIR, WHEELCHAIR - SCORE: 6-CADEN TRANSFERS: TOILET: TRANSFERS: TOILET - STEP 1: Does the patient require assistance with toilet transfers? Yes. TRANSFERS: TOILET - STEP 2: Does the patient require the assistance of a helper? No. Patient only requires an assistive device cunningham ch as a grab bar or special seat, OR s/he takes more than reasonable time to perform toilet transfers , OR there is a safety concern when s/he performs toilet transfers. TRANSFERS: TOILET - SCORE: 6-CADEN TRANSFERS: SHOWER: Activity did not occur on this shift TRANSFERS: SHOWER - SCORE: 0-UNK TRANSFERS: TUB: Activity did not occur on this shift TRANSFERS: TUB - SCORE: 0-UNK LOCOMOTION: WALK: Activity did not occur on this shift LOCOMOTION: WALK - SCORE: 0-UNK LOCOMOTION: WHEELCHAIR: Activity did not occur on this shift LOCOMOTION: WHEELCHAIR - SCORE: 0-UNK COMPREHENSION: COMPREHENSION - STEP 1: Does the patient require help to understand complex and abstract ideas (such as current events, finan neal, discharge planning, medical issues, relationships, etc)? No. COMPREHENSION - STEP 2: Does the patient need extra time, require an assistive device (such as glasses, hearing aids, or an a ugmentative communication system), OR does s/he have mild difficulty expressing complex and abstract ideas (including mild dysarthria or mild word-finding problems)? Yes. COMPREHENSION - SCORE: 6-CADEN EXPRESSION EXPRESSION - STEP 1: Does the patient require help expressing complex and abstract ideas (such as current events, finances , discharge planning, medical issues, relationships, etc)? No. EXPRESSION - STEP 2: Does the patient need extra time, require an assistive device (such as augmentive communication syste m or a communication board), OR does s/he have mild difficulty expressing complex and abstract ideas (including mild dysarthria or mild word-find problems)? Yes. EXPRESSION - SCORE: 6-CADEN SOCIAL INTERACTION: SOCIAL INTERACTION - STEP 1: Does the patient require a helper to interact with others in social and therapeutic situations? No. SOCIAL INTERACTION - STEP 2: Does the patient need extra time in social situations, OR does s/he interact with staff, other patien ts, and family members ONLY in structured environments, OR does s/he require medication for social in teraction? No. SOCIAL INTERACTION - SCORE: 7-IND PROBLEM SOLVING: PROBLEM SOLVING - STEP 1: Does the patient need help to solve complex problems such as managing a checking account or confronti ng interpersonal problems? No. PROBLEM SOLVING - STEP 2: Does the patient require extra time to make decisions or solve problems, OR does s/he have slight dif ficulty reading, initiating, or self-correcting in unfamiliar situations? No. PROBLEM SOLVING - SCORE: 7-IND MEMORY: MEMORY - STEP 1: Does the patient need help to remember frequently encountered people, daily routines, and executing r equests? No. MEMORY - STEP 2: Does the patient have slight difficulty recognizing frequently encountered people, daily routines, or executing requests without the need for repetition or using self-initiated or environmental cues to remember? No. MEMORY - SCORE: 7-IND SIGNATURE PANEL: The following modified sections: Eating - Score, Grooming - Score, Bathing - Score, Dressing - Upper Body - Score, Dressing - Lower Body - Score, Toileting - Score, Bladder Management - Score, Bowel Man agement - Score, Transfers: Bed, Chair, Wheelchair - Score, Transfers: Toilet - Score, Transfers: Coby wer - Score, Transfers: Tub - Score, Locomotion: Walk - Score, Locomotion: Wheelchair - Score, Compre hension - Score, Expression - Score, Social Interaction - Score, Problem Solving - Score, Memory - Sc ore were [electronically] signed by Teresa Bo RN on WedMar 29 2018 02:05:14 [facility]-0500 ([facility] Time)
[2018-03-29] MEDS: NYSTATIN PWDR 100000 UNIT/GM TOP SCH ×2 (07:16→20:21)
[2018-03-29] MEDS: DOCUSATE NA 100 MG CAP PO SCH (07:29)
[2018-03-29] MEDS: FERROUS SULFATE 325 MG TAB PO SCH (07:29)
[2018-03-29] MEDS: FE SULF/FA/VIT B COMP & C TAB PO SCH (07:29)
[2018-03-29] MEDS: APIXABAN 5 MG TABLET PO SCH ×2 (07:30→20:19)
[2018-03-29] MEDS: ACETAMINOPHEN 500 MG TAB PO PRN (07:30)
[2018-03-29] MEDS: POTASSIUM CL SA 10 MEQ TAB PO SCH (07:30)
[2018-03-29] MEDS: SPIRONOLACTONE 25 MG TABLET PO SCH (07:31)
[2018-03-29] MEDS: LOSARTAN POTASSIUM 50 MG TABLET PO SCH (07:31)
[2018-03-29] MEDS: BISOPROLOL 5 MG TABLET PO SCH (07:33)
[2018-03-29] MEDS: PROMOD 30 ML DOSE PO SCH ×2 (07:52→20:18)
[2018-03-29] MEDS: TRIAMCINOLONE ACETONIDE IH SCH (07:52)
[2018-03-29] MEDS: CARBAMAZEPINE 200 MG TAB PO SCH ×3 (08:02→20:19)
[2018-03-29] MEDS: GABAPENTIN 100 MG CAP PO SCH ×3 (08:02→20:19)
--- NOTE | 2018-03-29 13:09 | P.PN ---
Subjective Date of Service: 03/29/18 Chief Complaint: RIGHT LEG PAIN Subjective: Improving Review of Systems 10-point ROS is otherwise unremarkable Physical Examination - Vital Signs Temperature: 97.9 F Blood Pressure: 149/81 Pulse: 89 Respirations: 16 Pulse Ox (%): 95 - Physical Exam General: Alert, In no apparent distress HEENT: Atraumatic, PERRLA, EOMI Neck: Supple, JVD not distended Respiratory: Clear to auscultation bilaterally, Normal air movement Cardiovascular: Regular rate/rhythm, Normal S1 S2 Gastrointestinal: Normal bowel sounds, No tenderness Musculoskeletal: No tenderness Integumentary: No rashes Neurological: Normal speech, Normal tone, Normal affect Lymphatics: No axilla or inguinal lymphadenopathy - Studies Laboratory Data (last 24 hrs) 03/29/18 : Sodium Cancelled, Potassium Cancelled, BUN Cancelled, Creatinine Cancelled, Glucose Cancelled Microbiology Data (last 24 hrs): 03/29/18 08:55 Stool Occult Blood - Final Medications List Reviewed: Yes Assessment And Plan - Current Problems (Diagnosis) (1) HTN (hypertension) Onset Date: 03/22/18 Current Visit: Yes Status: Acute Qualifiers: Hypertension type: essential hypertension Qualified Code(s): I10 - Essential (primary) hypertension (2) Hip fracture, right Onset Date: 03/22/18 Current Visit: Yes Status: Acute Plan: RESUME PT LOW K- FRUIT DAILY CHECK TWICE A WEEK SHE IS NOT ON DIURETICS. Qualifiers: Fracture type: closed (3) Right leg pain Current Visit: Yes Status: Acute Plan: ORDER STAT VENOUS DOPPLER POSITIVE STOPPED LOVENOX STARTED ELIQUIS PO BID 10 MG. STAT. (4) Right leg DVT Current Visit: Yes Status: Acute Plan: LOVENOX BID 90 MG WATCH HG DAILY DR. ANN WANTS TO GIVE THIS FOR TWO DAYS. SHE IS IN MORE PAIN THAN YESTERDAY. WILL RESUME ELIQUIS LATER. LOVNOX SC BID HG LOWER RIGHT LEG PAIN , DVT, LOVENOX SC BID. IMPROVE. CONTINUE CARE DC IN AM. Qualifiers: Affected thrombotic vein of extremity: popliteal (5) Anemia in chronic illness Current Visit: Yes Status: Acute Plan: UNLCLEAR WHY HER FERRITIN IS NORMAL B12 NORMAL WILL CHECK OTTONIEL, ANTI DS DNA . SHE HAS CHRONIC SKIN LESIONS OFF AND ON. STABLE, IMPROVED. REDUCED FREQ OF LAB NOT HAPPY ABOUT CHECK OF HG I TOLD HER I HAD TO CHECK HG IT WAS DROPPING. WILL DO TWICE A WEEK NOW. HG HAS IMPROVED. (6) Hypokalemia Current Visit: Yes Status: Acute Plan: UNUSUAL TO HAVE THIS WITH BOTH LOSARTAN AND SPIRONOLACTONE ONE. SHE SEEMS TO HAVE HIGH ALDOSTERONE LEVELS. WILL CHECK ABD SONOGRAM , ADRENAL.S
--- NOTE | 2018-03-29 16:31 | FAST ---
ENCOUNTER DATE AND TIME: 03/28/2018 08:00 (CDT) NAME DOC HINKLE DATE OF : 1945 DATE OF ADMISSION: 03/20/2018 11:23 (CDT) PHONE: AGE: 72 N# [id number] GENDER: Female ENCOUNTER PHYSICIAN: Dr. Joao Robles M.D. ADMISSION DIAGNOSIS: - Orthopaedic Disorders 08 - Unilateral Hip Fracture (08.11) RIGHT HIP FEMORAL NECK FRACTURE. EATING: EATING - STEP 1: Does the patient require assistance when eating? No. EATING - SCORE: 7-IND GROOMING: Comb/brush hair Oral care Wash, rinse, and dry face Wash, rinse, and dry hands GROOMING - STEP 1: Does the patient require assistance when grooming? No. GROOMING - SCORE: 7-IND BATHING: Abdomen Buttocks Chest Left arm Left lower leg and foot Left upper leg Perineal area Right arm Right lower leg and foot Right upper leg BATHING - STEP 1: Does the patient require assistance when bathing? Yes. BATHING - STEP 2: Does the patient require the assistance of a helper? No. The patient only requires an assistive devic e such as a bath siri, OR the patient takes more than reasonable time to bathe, OR there is a concern for safety such as regulating water temperature as the patient bathes. BATHING - SCORE: 6-CADEN DRESSING - UPPER BODY: Bra (three steps) T-shirt/pullover shirt (four steps) ARTICLES SCORE Total number of steps: 7 DRESSING - UPPER BODY - STEP 1: Does the patient require help when dressing above the waist? No. DRESSING - UPPER BODY - SCORE: 7-IND DRESSING - LOWER BODY: Elastic waist pants (three steps) Sock - Left foot (one step) Sock - Right foot (one step) Underwear (three steps) ARTICLES SCORE Total number of steps: 8 DRESSING - LOWER BODY - STEP 1: Does the patient require help when dressing below the waist? Yes. DRESSING - LOWER BODY - STEP 2: Does the patient require the assistance of a helper? Yes. DRESSING - LOWER BODY - STEP 3: Does the helper touch the patient while dressing? No. DRESSING - LOWER BODY - SCORE: 5-SUP TOILETING: Activity did not occur on this shift TOILETING - SCORE: 0-UNK BLADDER MANAGEMENT: Activity did not occur on this shift BLADDER MANAGEMENT - SCORE: 7-IND BOWEL MANAGEMENT: Activity did not occur on this shift BOWEL MANAGEMENT - SCORE: 7-IND TRANSFERS: BED, CHAIR, WHEELCHAIR: Activity did not occur on this shift TRANSFERS: BED, CHAIR, WHEELCHAIR - SCORE: 0-UNK TRANSFERS: TOILET: Activity did not occur on this shift TRANSFERS: TOILET - SCORE: 0-UNK TRANSFERS: SHOWER: TRANSFERS: SHOWER - STEP 1: Does the patient require assistance with shower transfers? Yes. TRANSFERS: SHOWER - STEP 2: Does the patient require the assistance of a helper? No. The patient only uses an assistive device, t akes more than reasonable time, OR there is a concern for safety when s/he performs transfers. TRANSFERS: SHOWER - SCORE: 6-CADEN TRANSFERS: TUB: Activity did not occur on this shift TRANSFERS: TUB - SCORE: 0-UNK LOCOMOTION: WALK: Activity did not occur on this shift LOCOMOTION: WALK - SCORE: 0-UNK LOCOMOTION: WHEELCHAIR: Activity did not occur on this shift LOCOMOTION: WHEELCHAIR - SCORE: 0-UNK LOCOMOTION: STAIRS: Activity did not occur on this shift LOCOMOTION: STAIRS - SCORE: 0-UNK COMPREHENSION: COMPREHENSION: TYPE: Both COMPREHENSION - STEP 1: Does the patient require help to understand complex and abstract ideas (such as current events, finan neal, discharge planning, medical issues, relationships, etc)? No. COMPREHENSION - STEP 2: Does the patient need extra time, require an assistive device (such as glasses, hearing aids, or an a ugmentative communication system), OR does s/he have mild difficulty expressing complex and abstract ideas (including mild dysarthria or mild word-finding problems)? No. COMPREHENSION - SCORE: 7-IND EXPRESSION EXPRESSION: TYPE: Both EXPRESSION - STEP 1: Does the patient require help expressing complex and abstract ideas (such as current events, finances , discharge planning, medical issues, relationships, etc)? No. EXPRESSION - STEP 2: Does the patient need extra time, require an assistive device (such as augmentive communication syste m or a communication board), OR does s/he have mild difficulty expressing complex and abstract ideas (including mild dysarthria or mild word-find problems)? No. EXPRESSION - SCORE: 7-IND SOCIAL INTERACTION: SOCIAL INTERACTION - STEP 1: Does the patient require a helper to interact with others in social and therapeutic situations? No. SOCIAL INTERACTION - STEP 2: Does the patient need extra time in social situations, OR does s/he interact with staff, other patien ts, and family members ONLY in structured environments, OR does s/he require medication for social in teraction? Yes, patient requires medication for social interaction SOCIAL INTERACTION - SCORE: 6-CADEN PROBLEM SOLVING: PROBLEM SOLVING - STEP 1: Does the patient need help to solve complex problems such as managing a checking account or confronti ng interpersonal problems? No. PROBLEM SOLVING - STEP 2: Does the patient require extra time to make decisions or solve problems, OR does s/he have slight dif ficulty reading, initiating, or self-correcting in unfamiliar situations? No. PROBLEM SOLVING - SCORE: 7-IND MEMORY: MEMORY - STEP 1: Does the patient need help to remember frequently encountered people, daily routines, and executing r equests? No. MEMORY - STEP 2: Does the patient have slight difficulty recognizing frequently encountered people, daily routines, or executing requests without the need for repetition or using self-initiated or environmental cues to remember? No. MEMORY - SCORE: 7-IND SIGNATURE PANEL: The following modified sections: Eating - Score, Grooming - Score, Bathing - Score, Dressing - Upper Body - Score, Dressing - Lower Body - Score, Toileting - Score, Transfers: Bed, Chair, Wheelchair - S core, Transfers: Toilet - Score, Transfers: Tub - Score, Transfers: Shower - Score, Comprehension - S core, Expression - Score, Social Interaction - Score, Problem Solving - Score, Memory - Score were [e lectronically] signed by Izabela Callahan OT on WedMar 29 2018 15:31:33 GMT-0500 ([facility]
--- NOTE | 2018-03-29 16:36 | FAST ---
SHIFT START DATE/TIME: 03/29/2018 07:00 (CDT) SHIFT END DATE/TIME: 03/29/2018 19:00 (CDT) NAME DOC HINKLE DATE OF : 1945 DATE OF ADMISSION: 03/20/2018 11:23 (CDT) PHONE: AGE: 72 [facility]# [id number] GENDER: Female ENCOUNTER PHYSICIAN: Dr. Joao Robles M.D. ADMISSION DIAGNOSIS: - Orthopaedic Disorders 08 - Unilateral Hip Fracture (08.11) RIGHT HIP FEMORAL NECK FRACTURE. EATING: EATING - STEP 1: Does the patient require assistance when eating? Yes. EATING - STEP 2: Does the patient require the assistance of a helper? No, patient only requires an assistive device, O R s/he takes more than reasonable time to eat, OR there is a safety concern, OR s/he requires modifie d food consistency EATING - SCORE: 6-CADEN GROOMING: Comb/brush hair Oral care GROOMING - STEP 1: Does the patient require assistance when grooming? Yes. GROOMING - STEP 2: Does the patient require the assistance of a helper? No. The patient only requires an assistive devic e, OR takes more than reasonable time to groom, OR there is a concern for safety as the patient groom s GROOMING - SCORE: 6-CADEN BATHING: Activity did not occur on this shift BATHING - SCORE: 0-UNK DRESSING - UPPER BODY: Activity did not occur on this shift ARTICLES SCORE Total number of steps: 0 DRESSING - UPPER BODY - SCORE: 0-UNK DRESSING - LOWER BODY: Activity did not occur on this shift ARTICLES SCORE Total number of steps: 0 DRESSING - LOWER BODY - SCORE: 0-UNK TOILETING: TOILETING - STEP 1: Does the patient require assistance with toileting? Yes. TOILETING - STEP 2: Does the patient require the assistance of a helper? No. TOILETING - SCORE: 6-CADEN BLADDER MANAGEMENT: BLADDER MANAGEMENT - STEP 1: Does the patient control the bladder completely and intentionally without equipment or devices or med ications, and is always continent? No. BLADDER MANAGEMENT - STEP 2: Does the patient require the assistance of a helper? No, patient requires and independently uses an a ssistive device, such as a urinal, bedpan, bedside commode, catheter, absorbent pad, or collecting de vice BLADDER MANAGEMENT - SCORE: 6-CADEN BOWEL MANAGEMENT: Activity did not occur on this shift BOWEL MANAGEMENT - SCORE: 7-IND TRANSFERS: BED, CHAIR, WHEELCHAIR: TRANSFERS: BED, CHAIR, WHEELCHAIR - STEP 1: Does the patient require assistance with bed, chair, or wheelchair transfers? Yes. TRANSFERS: BED, CHAIR, WHEELCHAIR - STEP 2: Does the patient require the assistance of a helper? No. Patient only requires an assistive device fo r bed, chair, wheelchair transfers such as a sliding board, grab bar, or brace, OR s/he takes more th an reasonable time, OR there is a safety concern when s/he performs the transfers TRANSFERS: BED, CHAIR, WHEELCHAIR - SCORE: 6-CADEN TRANSFERS: TOILET: TRANSFERS: TOILET - STEP 1: Does the patient require assistance with toilet transfers? Yes. TRANSFERS: TOILET - STEP 2: Does the patient require the assistance of a helper? No. Patient only requires an assistive device cunningham ch as a grab bar or special seat, OR s/he takes more than reasonable time to perform toilet transfers , OR there is a safety concern when s/he performs toilet transfers. TRANSFERS: TOILET - SCORE: 6-CADEN TRANSFERS: SHOWER: Activity did not occur on this shift TRANSFERS: SHOWER - SCORE: 0-UNK TRANSFERS: TUB: Activity did not occur on this shift TRANSFERS: TUB - SCORE: 0-UNK LOCOMOTION: WALK: Activity did not occur on this shift LOCOMOTION: WALK - SCORE: 0-UNK LOCOMOTION: WHEELCHAIR: Activity did not occur on this shift LOCOMOTION: WHEELCHAIR - SCORE: 0-UNK COMPREHENSION: COMPREHENSION - SCORE: 0-UNK EXPRESSION EXPRESSION - SCORE: 0-UNK SOCIAL INTERACTION: SOCIAL INTERACTION - SCORE: 0-UNK PROBLEM SOLVING: PROBLEM SOLVING - SCORE: 0-UNK MEMORY: MEMORY - SCORE: 0-UNK SIGNATURE PANEL: The following modified sections: Eating - Score, Grooming - Score, Bathing - Score, Dressing - Upper Body - Score, Dressing - Lower Body - Score, Toileting - Score, Bladder Management - Score, Bowel Man agement - Score, Transfers: Bed, Chair, Wheelchair - Score, Transfers: Toilet - Score, Transfers: Coby wer - Score, Transfers: Tub - Score, Locomotion: Walk - Score, Locomotion: Wheelchair - Score, Compre hension - Score, Expression - Score, Social Interaction - Score, Problem Solving - Score, Memory - Sc ore were [electronically] signed by Tigre Wilson on WedMar 29 2018 15:36:30 GMT-0500 (Central Daylight Time)
--- NOTE | 2018-03-29 19:39 | R.PN ---
ENCOUNTER DATE AND TIME: 03/29/2018 18:35 (CDT) NAME DOC HINKLE DATE OF : 1945 DATE OF ADMISSION: 03/20/2018 11:23 (CDT) RIGHT HIP FEMORAL NECK FRACTURECHIEF COMPLAINT: Right hip fracture SUBJECTIVE: Pt denied any Shortness of Breath. Pt denied any depression. Ambulated 250' using a rolling walker with modified independence. Low blood pressures today 103-106/43-47. Cut diuretic in half and DC Cozaar. VITAL SIGNS Temperature: 97.2 F SBP/DBP: 123/68 Pulse: 92 Resp: 16 MEDICATION ALLERGIES: GUAIFENESIN PENICILLIN Sulfamethoxazole TRIMETHOPRIM ENVIRONMENTAL ALLERGIES: None Known - Substance Allergies None Known - Other Allergies None Known NURSING: - Shower allowing shower - Skin care per protocol PRECAUTIONS: - Weight Bearing Precaution WBAT right LE - Fall Precaution Bed and chair alarm ACTIVITIES OOB only with supervision THERAPIES: - Occupational Therapy Evaluate and Treat. - Physical Therapy Evaluate and Treat. PHYSICAL EXAM - Gen Alert and awake Lying in bed No apparent distress Oriented to: person, time, and place - Skin No skin breakdown. Normacephalic - Eyes No abnormalities - ENMT No abnormalities - Neck No abnormalities - CVS RRR - Chest Clear - Abd Soft - GI + bowel sound Deferred - No abnormalities - Ext Right hip surgical site has good hemostasis. - MSK 4+/5 weakness in right lower extremity - Neuro 4/5 strength right lower extremity. - Psych No abnormalities ASSESSMENT: Pt. is a 72 yo Right-handed white female.Her impairment category is Orthopaedic Disorders 08 - Femur (Shaft) Fracture (08.2).Pre-morbidly, Pt. was independent/mod-I in Social Cognition, Self-Care, [place] motion, Sphincter Control, Transfers Control, and Communication; and she had good Sphincter Control.C urrently, she has deficits of Balance, Locomotion, Endurance, Safety Awareness, Transfers Control, an d Self-Care.Pt. is now referred to [facility] for acute in-patient rehabilitat ion in order to maximize patient's functional independence in activities of daily living, strength, R OM, and mobility.- Rehab Goal Patient has realistic goal of being discharged at assistance level 6-Sherrie to reside at Home with Fam syed/Relatives. MDM/PLAN: - Diet Type Continue Regular - Physical Therapy Decreased range of motion - to improve, our physical therapists will perform initial evaluation of p t's status upon admission and devise an individualized program for increasing patient's Range of [place] on. Gait dysfunction - to improve, our physical therapists will perform initial evaluation of pt's statu s upon admission and devise an individualized program for Gait Training, and Wheel Chair mobility Inability to transfer - to improve, our physical therapists will perform initial evaluation of pt's status upon admission and devise an individualized program for Bed mobility Need for home safety evaluation - to improve, our physical therapists will perform initial evaluatio n of pt's status upon admission and devise an individualized program for Home Evaluation Need in caregiver upon discharge - to improve, our physical therapists will perform initial evaluati on of pt's status upon admission and devise an individualized program for Caregiver Training New precaution - to improve, our physical therapists will perform initial evaluation of pt's status upon admission and devise an individualized program for Patient precaution education Poor balance - to improve, our physical therapists will perform initial evaluation of pt's status up on admission and devise an individualized program for Balance Training Poor endurance - to improve, our physical therapists will perform initial evaluation of pt's status upon admission and devise an individualized program for Endurance Training Weakness - to improve, our physical therapists will perform initial evaluation of pt's status upon a dmission and devise an individualized program for Aquatic Therapy, Neuromuscular Reeducation, and Str engthening Achieving independence - to improve, our physical therapists will perform initial evaluation of pt's status upon admission and devise an individualized program for Community Reintegration Activities - Diet - Liquid Texture Continue Regular - Tube Feed Continue N/A - Weight Bearing Precaution WBAT right LE - Fall Precaution Bed and chair alarm - Skin care per protocol - Diet - Solid Texture Continue Regular - Shower allowing shower - Occupational Therapy ADL deficits - to improve, our occupation therapists will perform initial evaluation of pt's status upon admission and devise an individualized program for Bathing, Bed mobility, Community Reintegratio n, Cooking, Dressing, Eating, Fine Motor Skills, Grooming, Homemaking, Kitchen Mobility, Laundry, Pat ient Education, Safety Awareness, Splinting - Positioning, Transfers(Toilet, Tub, Shower), and Wheel Chair Management Need for wound care rn - to improve, our occupation therapists will perform initial evaluation of pt's status upon admission and devise an individualized program for Caregiver Training Weakness - to improve, our occupation therapists will perform initial evaluation of pt's status upon admission and devise an individualized program for Aquatic Therapy, Balance, Endurance, UE ROM, and UE strengthening FUNCTIONAL STATUS: UPDATED AT WEEKLY TEAM CONFERENCE - Bladder Same accident frequency: 7-Ind - No accidents in the past 7 days - Bowel Same accident frequency: 7-Ind - No accidents in the past 7 days - Walking Same score based on distance walked: 1(<=50ft) - Wheelchair Same score based on distance traveled: 0(N/A) FUNCTIONAL STATUS: - Self-Care A. Eating Ind B. Grooming Sherrie C. Bathing Dot D. Dressing - Upper Dot E. Dressing - Lower Dot F. Toileting Dot - Sphincter Control G: Bladder control Ind H: Bowel control Ind - Transfers Control I. Bed/Chair/Wheelchair maxA J. Toilet maxA K. Tub/Shower ADNO - Locomotion L. Walk/Wheelchair (C) maxA L. Walk/Wheelchair (W) maxA M. Stairs ADNO - Communication N. Comprehension (B) Ind O. Expression (B) Ind - Social Cognition P. Social Interaction Ind Q. Problem Solving Ind R. Memory Ind - Endurance Fair - Balance Fair - Safety Awareness Fair CURRENT FUNC. DEFICITS: Balance, Locomotion, Endurance, Safety Awareness, Transfers Control, and Self-Care SIGNATURE PANEL: (CDT)
--- NOTE | 2018-03-30 03:19 | FAST ---
SHIFT START DATE/TIME: 03/29/2018 19:00 (CDT) SHIFT END DATE/TIME: 03/30/2018 07:00 (CDT) NAME DOC HINKLE DATE OF : 1945 DATE OF ADMISSION: 03/20/2018 11:23 (CDT) PHONE: AGE: 72 N# [id number] GENDER: Female ENCOUNTER PHYSICIAN: Dr. Joao Robles M.D. ADMISSION DIAGNOSIS: - Orthopaedic Disorders 08 - Unilateral Hip Fracture (08.11) RIGHT HIP FEMORAL NECK FRACTURE. EATING: Activity did not occur on this shift EATING - SCORE: 0-UNK GROOMING: Activity did not occur on this shift GROOMING - SCORE: 0-UNK BATHING: Activity did not occur on this shift BATHING - SCORE: 0-UNK DRESSING - UPPER BODY: Patient is not dressing in public clothing ARTICLES SCORE Total number of steps: 0 DRESSING - UPPER BODY - SCORE: 0-UNK DRESSING - LOWER BODY: Patient is not dressing in public clothing ARTICLES SCORE Total number of steps: 0 DRESSING - LOWER BODY - SCORE: 0-UNK TOILETING: TOILETING - STEP 1: Does the patient require assistance with toileting? Yes. TOILETING - STEP 2: Does the patient require the assistance of a helper? No. TOILETING - SCORE: 6-CADEN BLADDER MANAGEMENT: BLADDER MANAGEMENT - STEP 1: Does the patient control the bladder completely and intentionally without equipment or devices or med ications, and is always continent? No. BLADDER MANAGEMENT - STEP 2: Does the patient require the assistance of a helper? No, patient requires and independently uses an a ssistive device, such as a urinal, bedpan, bedside commode, catheter, absorbent pad, or collecting de vice BLADDER MANAGEMENT - SCORE: 6-CADEN BLADDER MANAGEMENT - FREQUENCY OF ACCIDENTS: BLADDER MANAGEMENT(FA) - STEP 1: How many accidents has the patient had during the current shift? 1 BOWEL MANAGEMENT: Activity did not occur on this shift BOWEL MANAGEMENT - SCORE: 7-IND TRANSFERS: BED, CHAIR, WHEELCHAIR: TRANSFERS: BED, CHAIR, WHEELCHAIR - STEP 1: Does the patient require assistance with bed, chair, or wheelchair transfers? Yes. TRANSFERS: BED, CHAIR, WHEELCHAIR - STEP 2: Does the patient require the assistance of a helper? Yes. TRANSFERS: BED, CHAIR, WHEELCHAIR - STEP 3: How much assistance does the patient require from the helper? Lifting of the legs TRANSFERS: BED, CHAIR, WHEELCHAIR - STEP 4: How many legs does the patient require the helper to lift? one leg TRANSFERS: BED, CHAIR, WHEELCHAIR - SCORE: 4-MIN TRANSFERS: TOILET: TRANSFERS: TOILET - STEP 1: Does the patient require assistance with toilet transfers? Yes. TRANSFERS: TOILET - STEP 2: Does the patient require the assistance of a helper? No. Patient only requires an assistive device cunningham ch as a grab bar or special seat, OR s/he takes more than reasonable time to perform toilet transfers , OR there is a safety concern when s/he performs toilet transfers. TRANSFERS: TOILET - SCORE: 6-CADEN TRANSFERS: SHOWER: Activity did not occur on this shift TRANSFERS: SHOWER - SCORE: 0-UNK TRANSFERS: TUB: Activity did not occur on this shift TRANSFERS: TUB - SCORE: 0-UNK LOCOMOTION: WALK: Activity did not occur on this shift LOCOMOTION: WALK - SCORE: 0-UNK LOCOMOTION: WHEELCHAIR: Activity did not occur on this shift LOCOMOTION: WHEELCHAIR - SCORE: 0-UNK COMPREHENSION: COMPREHENSION - STEP 1: Does the patient require help to understand complex and abstract ideas (such as current events, finan neal, discharge planning, medical issues, relationships, etc)? No. COMPREHENSION - STEP 2: Does the patient need extra time, require an assistive device (such as glasses, hearing aids, or an a ugmentative communication system), OR does s/he have mild difficulty expressing complex and abstract ideas (including mild dysarthria or mild word-finding problems)? Yes. COMPREHENSION - SCORE: 6-CADEN EXPRESSION EXPRESSION - STEP 1: Does the patient require help expressing complex and abstract ideas (such as current events, finances , discharge planning, medical issues, relationships, etc)? No. EXPRESSION - STEP 2: Does the patient need extra time, require an assistive device (such as augmentive communication syste m or a communication board), OR does s/he have mild difficulty expressing complex and abstract ideas (including mild dysarthria or mild word-find problems)? No. EXPRESSION - SCORE: 7-IND SOCIAL INTERACTION: SOCIAL INTERACTION - STEP 1: Does the patient require a helper to interact with others in social and therapeutic situations? No. SOCIAL INTERACTION - STEP 2: Does the patient need extra time in social situations, OR does s/he interact with staff, other patien ts, and family members ONLY in structured environments, OR does s/he require medication for social in teraction? No. SOCIAL INTERACTION - SCORE: 7-IND PROBLEM SOLVING: PROBLEM SOLVING - STEP 1: Does the patient need help to solve complex problems such as managing a checking account or confronti ng interpersonal problems? No. PROBLEM SOLVING - STEP 2: Does the patient require extra time to make decisions or solve problems, OR does s/he have slight dif ficulty reading, initiating, or self-correcting in unfamiliar situations? No. PROBLEM SOLVING - SCORE: 7-IND MEMORY: MEMORY - STEP 1: Does the patient need help to remember frequently encountered people, daily routines, and executing r equests? No. MEMORY - STEP 2: Does the patient have slight difficulty recognizing frequently encountered people, daily routines, or executing requests without the need for repetition or using self-initiated or environmental cues to remember? No. MEMORY - SCORE: 7-IND SIGNATURE PANEL: The following modified sections: Eating - Score, Grooming - Score, Bathing - Score, Dressing - Upper Body - Score, Dressing - Lower Body - Score, Toileting - Score, Bladder Management - Score, Bowel Man agement - Score, Transfers: Bed, Chair, Wheelchair - Score, Transfers: Toilet - Score, Transfers: Coby wer - Score, Transfers: Tub - Score, Locomotion: Walk - Score, Locomotion: Wheelchair - Score, Compre hension - Score, Expression - Score, Social Interaction - Score, Problem Solving - Score, Memory - Sc ore were [electronically] signed by Teresa Bo RN on WedMar 30 2018 02:19:17 T-0500 (Formerly [facility], later [facility])
[2018-03-30 07:26] VITALS: BP 102/69; TEMP 97.8
[2018-03-30] MEDS: SPIRONOLACTONE 25 MG TABLET PO SCH (08:00)
[2018-03-30] MEDS: PROMOD 30 ML DOSE PO SCH (08:00)
[2018-03-30] MEDS: FERROUS SULFATE 325 MG TAB PO SCH (08:00)
[2018-03-30] MEDS: NYSTATIN PWDR 100000 UNIT/GM TOP SCH (08:00)
[2018-03-30] MEDS: TRIAMCINOLONE ACETONIDE IH SCH (08:00)
[2018-03-30] MEDS: DOCUSATE NA 100 MG CAP PO SCH (08:00)
[2018-03-30] MEDS: BISOPROLOL 5 MG TABLET PO SCH (08:00)
[2018-03-30] MEDS: ACETAMINOPHEN 500 MG TAB PO PRN (08:15)
[2018-03-30] MEDS: CARBAMAZEPINE 200 MG TAB PO SCH (08:17)
[2018-03-30] MEDS: FE SULF/FA/VIT B COMP & C TAB PO SCH (08:17)
[2018-03-30] MEDS: GABAPENTIN 100 MG CAP PO SCH (08:17)
[2018-03-30] MEDS: APIXABAN 5 MG TABLET PO SCH (08:17)
--- NOTE | 2018-03-30 11:51 | FAST ---
SHIFT START DATE/TIME: 03/30/2018 07:00 (CDT) SHIFT END DATE/TIME: 03/30/2018 19:00 (CDT) NAME DOC HINKLE DATE OF : 1945 DATE OF ADMISSION: 03/20/2018 11:23 (CDT) PHONE: AGE: 72 BANNER# [id number] GENDER: Female ENCOUNTER PHYSICIAN: Dr. Joao Robles M.D. ADMISSION DIAGNOSIS: - Orthopaedic Disorders 08 - Unilateral Hip Fracture (08.11) RIGHT HIP FEMORAL NECK FRACTURE. EATING: EATING - STEP 1: Does the patient require assistance when eating? Yes. EATING - STEP 2: Does the patient require the assistance of a helper? No, patient only requires an assistive device, O R s/he takes more than reasonable time to eat, OR there is a safety concern, OR s/he requires modifie d food consistency EATING - SCORE: 6-CADEN GROOMING: Comb/brush hair Oral care Wash, rinse, and dry face Wash, rinse, and dry hands GROOMING - STEP 1: Does the patient require assistance when grooming? Yes. GROOMING - STEP 2: Does the patient require the assistance of a helper? No. The patient only requires an assistive devic e, OR takes more than reasonable time to groom, OR there is a concern for safety as the patient groom s GROOMING - SCORE: 6-CADEN BATHING: Activity did not occur on this shift BATHING - SCORE: 0-UNK DRESSING - UPPER BODY: Activity did not occur on this shift ARTICLES SCORE Total number of steps: 0 DRESSING - UPPER BODY - SCORE: 0-UNK DRESSING - LOWER BODY: Activity did not occur on this shift ARTICLES SCORE Total number of steps: 0 DRESSING - LOWER BODY - SCORE: 0-UNK TOILETING: TOILETING - STEP 1: Does the patient require assistance with toileting? No. TOILETING - SCORE: 7-IND BLADDER MANAGEMENT: BLADDER MANAGEMENT - STEP 1: Does the patient control the bladder completely and intentionally without equipment or devices or med ications, and is always continent? No. BLADDER MANAGEMENT - STEP 2: Does the patient require the assistance of a helper? No, patient requires and independently uses an a ssistive device, such as a urinal, bedpan, bedside commode, catheter, absorbent pad, or collecting de vice BLADDER MANAGEMENT - SCORE: 6-CADEN BLADDER MANAGEMENT - FREQUENCY OF ACCIDENTS: BLADDER MANAGEMENT(FA) - STEP 1: How many accidents has the patient had during the current shift? 0 BOWEL MANAGEMENT: Activity did not occur on this shift BOWEL MANAGEMENT - SCORE: 7-IND BOWEL MANAGEMENT - FREQUENCY OF ACCIDENTS: BOWEL MANAGEMENT(FA) - STEP 1: How many accidents has the patient had during the current shift? 0 TRANSFERS: BED, CHAIR, WHEELCHAIR: TRANSFERS: BED, CHAIR, WHEELCHAIR - STEP 1: Does the patient require assistance with bed, chair, or wheelchair transfers? No. TRANSFERS: BED, CHAIR, WHEELCHAIR - SCORE: 7-IND TRANSFERS: TOILET: TRANSFERS: TOILET - STEP 1: Does the patient require assistance with toilet transfers? No. TRANSFERS: TOILET - SCORE: 7-IND TRANSFERS: SHOWER: Activity did not occur on this shift TRANSFERS: SHOWER - SCORE: 0-UNK TRANSFERS: TUB: Activity did not occur on this shift TRANSFERS: TUB - SCORE: 0-UNK LOCOMOTION: WALK: Activity did not occur on this shift LOCOMOTION: WALK - SCORE: 0-UNK LOCOMOTION: WHEELCHAIR: LOCOMOTION: WHEELCHAIR - STEP 1: Does the patient need help to go 150 feet in a wheelchair? Yes. LOCOMOTION: WHEELCHAIR - STEP 2: How much assistance does the patient need from the helper? Only supervision, cuing, or coaxing LOCOMOTION: WHEELCHAIR - SCORE: 5-SUP COMPREHENSION: COMPREHENSION: TYPE: Both COMPREHENSION - STEP 1: Does the patient require help to understand complex and abstract ideas (such as current events, finan neal, discharge planning, medical issues, relationships, etc)? No. COMPREHENSION - STEP 2: Does the patient need extra time, require an assistive device (such as glasses, hearing aids, or an a ugmentative communication system), OR does s/he have mild difficulty expressing complex and abstract ideas (including mild dysarthria or mild word-finding problems)? Yes. COMPREHENSION - SCORE: 6-CADEN EXPRESSION EXPRESSION: TYPE: Both EXPRESSION - STEP 1: Does the patient require help expressing complex and abstract ideas (such as current events, finances , discharge planning, medical issues, relationships, etc)? No. EXPRESSION - STEP 2: Does the patient need extra time, require an assistive device (such as augmentive communication syste m or a communication board), OR does s/he have mild difficulty expressing complex and abstract ideas (including mild dysarthria or mild word-find problems)? Yes. EXPRESSION - SCORE: 6-CADEN SOCIAL INTERACTION: SOCIAL INTERACTION - STEP 1: Does the patient require a helper to interact with others in social and therapeutic situations? No. SOCIAL INTERACTION - STEP 2: Does the patient need extra time in social situations, OR does s/he interact with staff, other patien ts, and family members ONLY in structured environments, OR does s/he require medication for social in teraction? No. SOCIAL INTERACTION - SCORE: 7-IND PROBLEM SOLVING: PROBLEM SOLVING - STEP 1: Does the patient need help to solve complex problems such as managing a checking account or confronti ng interpersonal problems? No. PROBLEM SOLVING - STEP 2: Does the patient require extra time to make decisions or solve problems, OR does s/he have slight dif ficulty reading, initiating, or self-correcting in unfamiliar situations? Yes, patient needs extra ti me. PROBLEM SOLVING - SCORE: 6-CADEN MEMORY: MEMORY - STEP 1: Does the patient need help to remember frequently encountered people, daily routines, and executing r equests? No. MEMORY - STEP 2: Does the patient have slight difficulty recognizing frequently encountered people, daily routines, or executing requests without the need for repetition or using self-initiated or environmental cues to remember? Yes. MEMORY - SCORE: 6-CADEN SIGNATURE PANEL: The following modified sections: Eating - Score, Grooming - Score, Bathing - Score, Dressing - Upper Body - Score, Dressing - Lower Body - Score, Toileting - Score, Bladder Management - Score, Bowel Man agement - Score, Transfers: Bed, Chair, Wheelchair - Score, Transfers: Toilet - Score, Transfers: Coby wer - Score, Transfers: Tub - Score, Locomotion: Walk - Score, Locomotion: Wheelchair - Score, Compre hension - Score, Expression - Score, Social Interaction - Score, Problem Solving - Score, Memory - Sc ore were [electronically] signed by Cesia Dumont C.N.A. on WedMar 30 2018 10:51:23 T-0500 ([place])
--- NOTE | 2018-03-30 14:46 | FAST ---
ENCOUNTER DATE AND TIME: 03/30/2018 08:00 (CDT) NAME DOC HINKLE DATE OF : 1945 DATE OF ADMISSION: 03/20/2018 11:23 (CDT) PHONE: AGE: 72 N# [id number] GENDER: Female ENCOUNTER PHYSICIAN: Dr. Joao Robles M.D. ADMISSION DIAGNOSIS: - Orthopaedic Disorders 08 - Unilateral Hip Fracture (08.11) RIGHT HIP FEMORAL NECK FRACTURE. EATING: Activity did not occur on this shift EATING - SCORE: 0-UNK GROOMING: Comb/brush hair Wash, rinse, and dry face Wash, rinse, and dry hands GROOMING - STEP 1: Does the patient require assistance when grooming? No. GROOMING - SCORE: 7-IND BATHING: Abdomen Buttocks Chest Left arm Left lower leg and foot Left upper leg Perineal area Right arm Right lower leg and foot Right upper leg BATHING - STEP 1: Does the patient require assistance when bathing? Yes. BATHING - STEP 2: Does the patient require the assistance of a helper? No. The patient only requires an assistive devic e such as a bath siri, OR the patient takes more than reasonable time to bathe, OR there is a concern for safety such as regulating water temperature as the patient bathes. BATHING - SCORE: 6-CADEN DRESSING - UPPER BODY: T-shirt/pullover shirt (four steps) ARTICLES SCORE Total number of steps: 4 DRESSING - UPPER BODY - STEP 1: Does the patient require help when dressing above the waist? No. DRESSING - UPPER BODY - SCORE: 7-IND DRESSING - LOWER BODY: Elastic waist pants (three steps) Slip-on shoe - Left foot (one step) Slip-on shoe - Right foot (one step) Sock - Left foot (one step) Sock - Right foot (one step) Underwear (three steps) ARTICLES SCORE Total number of steps: 10 DRESSING - LOWER BODY - STEP 1: Does the patient require help when dressing below the waist? Yes. DRESSING - LOWER BODY - STEP 2: Does the patient require the assistance of a helper? No. Patient requires an assistive device such as a director cardiovascular. OR s/he takes more than reasonable time as s/he dresses the lower body, OR there is a con cern for safety when s/he dresses the lower body DRESSING - LOWER BODY - SCORE: 6-CADEN TOILETING: Activity did not occur on this shift TOILETING - SCORE: 0-UNK BLADDER MANAGEMENT: Activity did not occur on this shift BLADDER MANAGEMENT - SCORE: 7-IND BOWEL MANAGEMENT: Activity did not occur on this shift BOWEL MANAGEMENT - SCORE: 7-IND TRANSFERS: BED, CHAIR, WHEELCHAIR: Activity did not occur on this shift TRANSFERS: BED, CHAIR, WHEELCHAIR - SCORE: 0-UNK TRANSFERS: TOILET: Activity did not occur on this shift TRANSFERS: TOILET - SCORE: 0-UNK TRANSFERS: SHOWER: TRANSFERS: SHOWER - STEP 1: Does the patient require assistance with shower transfers? Yes. TRANSFERS: SHOWER - STEP 2: Does the patient require the assistance of a helper? No. The patient only uses an assistive device, t akes more than reasonable time, OR there is a concern for safety when s/he performs transfers. TRANSFERS: SHOWER - SCORE: 6-CADEN TRANSFERS: TUB: Activity did not occur on this shift TRANSFERS: TUB - SCORE: 0-UNK LOCOMOTION: WALK: Activity did not occur on this shift LOCOMOTION: WALK - SCORE: 0-UNK LOCOMOTION: WHEELCHAIR: Activity did not occur on this shift LOCOMOTION: WHEELCHAIR - SCORE: 0-UNK LOCOMOTION: STAIRS: Activity did not occur on this shift LOCOMOTION: STAIRS - SCORE: 0-UNK COMPREHENSION: COMPREHENSION: TYPE: Visual COMPREHENSION - STEP 1: Does the patient require help to understand complex and abstract ideas (such as current events, finan neal, discharge planning, medical issues, relationships, etc)? No. COMPREHENSION - STEP 2: Does the patient need extra time, require an assistive device (such as glasses, hearing aids, or an a ugmentative communication system), OR does s/he have mild difficulty expressing complex and abstract ideas (including mild dysarthria or mild word-finding problems)? Yes. COMPREHENSION - SCORE: 6-CADEN EXPRESSION EXPRESSION: TYPE: Non-Vocal EXPRESSION - STEP 1: Does the patient require help expressing complex and abstract ideas (such as current events, finances , discharge planning, medical issues, relationships, etc)? No. EXPRESSION - STEP 2: Does the patient need extra time, require an assistive device (such as augmentive communication syste m or a communication board), OR does s/he have mild difficulty expressing complex and abstract ideas (including mild dysarthria or mild word-find problems)? No. EXPRESSION - SCORE: 7-IND SOCIAL INTERACTION: SOCIAL INTERACTION - STEP 1: Does the patient require a helper to interact with others in social and therapeutic situations? No. SOCIAL INTERACTION - STEP 2: Does the patient need extra time in social situations, OR does s/he interact with staff, other patien ts, and family members ONLY in structured environments, OR does s/he require medication for social in teraction? No. SOCIAL INTERACTION - SCORE: 7-IND PROBLEM SOLVING: PROBLEM SOLVING - STEP 1: Does the patient need help to solve complex problems such as managing a checking account or confronti ng interpersonal problems? No. PROBLEM SOLVING - STEP 2: Does the patient require extra time to make decisions or solve problems, OR does s/he have slight dif ficulty reading, initiating, or self-correcting in unfamiliar situations? No. PROBLEM SOLVING - SCORE: 7-IND MEMORY: MEMORY - STEP 1: Does the patient need help to remember frequently encountered people, daily routines, and executing r equests? No. MEMORY - STEP 2: Does the patient have slight difficulty recognizing frequently encountered people, daily routines, or executing requests without the need for repetition or using self-initiated or environmental cues to remember? No. MEMORY - SCORE: 7-IND SIGNATURE PANEL: The following modified sections: Eating - Score, Grooming - Score, Bathing - Score, Dressing - Upper Body - Score, Dressing - Lower Body - Score, Toileting - Score, Transfers: Bed, Chair, Wheelchair - S core, Transfers: Toilet - Score, Transfers: Shower - Score, Transfers: Tub - Score, Comprehension - S core, Expression - Score, Social Interaction - Score, Problem Solving - Score, Memory - Score were [e lectronically] signed by PERCY Graham on WedMar 30 2018 13:45:58 T-0500 ([facility])
--- NOTE | 2018-03-30 15:35 | FAST ---
ENCOUNTER DATE AND TIME: 03/30/2018 08:00 (CDT) NAME DOC HINKLE DATE OF : 1945 DATE OF ADMISSION: 03/20/2018 11:23 (CDT) PHONE: AGE: 72 N# [id number] GENDER: Female ENCOUNTER PHYSICIAN: Dr. Joao Robles M.D. ADMISSION DIAGNOSIS: - Orthopaedic Disorders 08 - Unilateral Hip Fracture (08.11) RIGHT HIP FEMORAL NECK FRACTURE. EATING: Activity did not occur on this shift EATING - SCORE: 0-UNK GROOMING: Activity did not occur on this shift GROOMING - SCORE: 0-UNK BATHING: Activity did not occur on this shift BATHING - SCORE: 0-UNK DRESSING - UPPER BODY: Activity did not occur on this shift Patient is not dressing in public clothing ARTICLES SCORE Total number of steps: 0 DRESSING - UPPER BODY - SCORE: 0-UNK DRESSING - LOWER BODY: Activity did not occur on this shift Patient is not dressing in public clothing ARTICLES SCORE Total number of steps: 0 DRESSING - LOWER BODY - SCORE: 0-UNK TOILETING: Activity did not occur on this shift TOILETING - SCORE: 0-UNK BLADDER MANAGEMENT: Activity did not occur on this shift BLADDER MANAGEMENT - SCORE: 7-IND BOWEL MANAGEMENT: Activity did not occur on this shift BOWEL MANAGEMENT - SCORE: 7-IND TRANSFERS: BED, CHAIR, WHEELCHAIR: TRANSFERS: BED, CHAIR, WHEELCHAIR - STEP 1: Does the patient require assistance with bed, chair, or wheelchair transfers? Yes. TRANSFERS: BED, CHAIR, WHEELCHAIR - STEP 2: Does the patient require the assistance of a helper? No. Patient only requires an assistive device fo r bed, chair, wheelchair transfers such as a sliding board, grab bar, or brace, OR s/he takes more th an reasonable time, OR there is a safety concern when s/he performs the transfers TRANSFERS: BED, CHAIR, WHEELCHAIR - SCORE: 6-CADEN TRANSFERS: TOILET: Activity did not occur on this shift TRANSFERS: TOILET - SCORE: 0-UNK TRANSFERS: SHOWER: Activity did not occur on this shift TRANSFERS: SHOWER - SCORE: 0-UNK TRANSFERS: TUB: Activity did not occur on this shift TRANSFERS: TUB - SCORE: 0-UNK LOCOMOTION: WALK: LOCOMOTION: WALK - STEP 1: Does the patient need help to walk 150 feet? No. LOCOMOTION: WALK - STEP 2: Does the patient need an assistive device (such as an orthosis, prosthesis, crutches, or walker) to g o 150 feet, OR does s/he take more than reasonable time, OR is there a concern for safety? Yes, the p atient needs an assistive device LOCOMOTION: WALK - SCORE: 6-CADEN LOCOMOTION: WHEELCHAIR: LOCOMOTION: WHEELCHAIR - STEP 1: Does the patient need help to go 150 feet in a wheelchair? No. LOCOMOTION: WHEELCHAIR - SCORE: 6-CADEN LOCOMOTION: STAIRS: LOCOMOTION: STAIRS - STEP 1: Does the patient need help to go up and down 12 to 14 stairs? No. LOCOMOTION: STAIRS - STEP 2: Does the patient require an assistive device - such as handrails or cane - to go up and down one flig ht of stairs, OR does s/he take more than reasonable time, OR is there a concern for safety? Yes, the patient requires an assistive device LOCOMOTION: STAIRS - SCORE: 6-CADEN COMPREHENSION: COMPREHENSION - SCORE: 0-UNK EXPRESSION EXPRESSION - SCORE: 0-UNK SOCIAL INTERACTION: SOCIAL INTERACTION - SCORE: 0-UNK PROBLEM SOLVING: PROBLEM SOLVING - SCORE: 0-UNK MEMORY: MEMORY - SCORE: 0-UNK SIGNATURE PANEL: The following modified sections: Transfers: Bed, Chair, Wheelchair - Score, Transfers: Toilet - Score , Locomotion: Walk - Score, Locomotion: Wheelchair - Score, Locomotion: Stairs - Score were [electron galo] signed by Angel Stewart PTA on WedMar 30 2018 14:35:00 GMT-0500 (Central Daylight Time)
[2018-03-30] MEDS ORDERED: APIXABAN 5 MG TABLET PO SCH (20:00)
--- NOTE | 2018-04-20 15:58 | R.DS ---
FACILITY [facility] MR# [id number] NAME DOC HINKLE ADDRESS [address] [place] [address] PHONE DATE OF 1945 AGE 72 N# [id number] GENDER Female DEXTERITY Right-handed MARITAL STATUS RACE White ENCOUNTER PHYSICIAN Dr. Joao Robles M.D. REFERRING DOCTOR Jewel Mendiola REFERRING FACILITY [facility] DISCHARGE DIAGNOSIS: - Orthopaedic Disorders 08 - Unilateral Hip Fracture (08.11) RIGHT HIP FEMORAL NECK FRACTURE. DISCHARGE COMORBIDITIES: - N/A HTN TRIGEMINAL NEURALGIA SKIN CANCER DATE OF ADMISSION 03/20/2018 11:23 (CDT) MEDICATION ALLERGIES: GUAIFENESIN PENICILLIN Sulfamethoxazole TRIMETHOPRIM ENVIRONMENTAL ALLERGIES: None Known - Substance Allergies None Known - Other Allergies None Known NURSING: - Shower allowing shower - Skin care per protocol PRECAUTIONS: - Weight Bearing Precaution WBAT right LE - Fall Precaution Bed and chair alarm ACTIVITIES OOB only with supervision THERAPIES: - Occupational Therapy Evaluate and Treat - Physical Therapy Evaluate and Treat HISTORY OF PRESENT ILLNESS: Pt. is a 72 yo Right-handed white female.Her impairment category is Orthopaedic Disorders 08 - Femur (Shaft) Fracture (08.2).Pre-morbidly, Pt. was independent/mod-I in Self-Care, Sphincter Control, Com munication, and Social Cognition; and she had good Sphincter Control.Currently, she has deficits of B alance, Locomotion, Endurance, Safety Awareness, Transfers Control, and Self-Care.Pt. is now referred to [facility] for acute in-patient rehabilitation in order to maximize patien t's functional independence in activities of daily living, strength, ROM, and mobility.- Rehab Goal Patient has realistic goal of being discharged at assistance level 6-Sherrie to reside at Home with Fam syed/Relatives. HOSPITAL COURSE: On 03/22/2018 the following precautions were removed for the patient: Fall Precaution - Bed and rory r alarm. On 03/18/2018 the following precautions were added for the patient: Fall Precaution - Bed and chair a larm. On 03/21/2018 the following precautions were added for the patient: Fall Precaution - Bed and chair alarm. On 03/28/2018 the following precautions were added for the patient: Fall Precaution - Bed and chair alarm. The following precautions were removed for the patient: Fall Precaution - Bed and chair alarm, and F all Precaution - Bed and chair alarm. On 03/18/2018 the following precautions were added for the patient: Weight Bearing Precaution - WBAT right LE. On 03/21/2018 the following precautions were added for the patient: Weight Bearing Precaution - WBAT right LE. On 03/22/2018 the following precautions were removed for the patient: Weight Bearing Precaution - WB AT right LE. On 03/28/2018 the following precautions were added for the patient: Weight Bearing Precaution - WBAT right LE. DIET - LIQUID TEXTURE: On 03/18/2018 Pt was upgraded to Regular Diet - Liquid Texture. DIET - SOLID TEXTURE: On 03/18/2018 Pt was upgraded to Regular Diet - Solid Texture. DIET TYPE: On 03/18/2018 Pt was upgraded to Regular Diet Type. FALL PRECAUTION: TUBE FEED: On 03/18/2018 Pt was changed to N/A Tube Feed. WEIGHT BEARING PRECAUTION: DISCHARGE PHYSICAL EXAM - Gen Alert and awake Lying in bed No apparent distress Oriented to: person, time, and place - Skin No skin breakdown. Normacephalic - Eyes No abnormalities - ENMT No abnormalities - Neck No abnormalities - CVS RRR - Chest Clear - Abd Soft - GI + bowel sound Deferred - No abnormalities - Ext Right hip surgical site has good hemostasis. - MSK 4+/5 weakness in right lower extremity - Neuro 4/5 strength right lower extremity. - Psych No abnormalities FUNCTIONAL STATUS: - Self-Care A. Eating 7-Ind 7-Ind B. Grooming 6-Sherrie 6-Sherrie C. Bathing 4-Dot 6-Sherrie D. Dressing - Upper 4-Dot 7-Ind E. Dressing - Lower 4-Dot 6-Sherrie F. Toileting 4-Dot 6-Sherrie - Sphincter Control G: Bladder control 7-Ind 7-Ind H: Bowel control 7-Ind 7-Ind - Transfers Control I. Bed/Chair/Wheelchair 2-maxA 6-Sherrie J. Toilet 2-maxA 6-Sherrie K. Tub/Shower 0-ADNO 6-Sherrie - Locomotion L. Walk/Wheelchair (C) 2-maxA 6-Sherrie L. Walk/Wheelchair (W) 2-maxA 6-Sherrie M. Stairs 0-ADNO 6-Sherrie - Communication N. Comprehension (B) 7-Ind 7-Ind O. Expression (B) 7-Ind 7-Ind - Social Cognition P. Social Interaction 7-Ind 7-Ind Q. Problem Solving 7-Ind 7-Ind R. Memory 7-Ind 7-Ind - Endurance Fair - Balance Fair - Safety Awareness Fair DISCHARGE INSTRUCTIONS: - N/A Eliquis 10 mg twice daily. DISCHARGE PLAN, FOLLOW UP CARE PROVISIONS: - Estimated Length of Stay (days) 14. - Consensus on plan Discharge plan has been discussed with primary caregiver. Patient/Family is in agreement with the kalani n. Primary caregiver is in agreement with the plan. - Patient/Family Goals Return home with assistance. - Planned Living Setting Upon Discharge Home, to live with Family/Relatives. SIGNATURE PANEL: (CDT)
== END 2018-03-30 11:45 | disposition home or self-care (01) | DRG 560 ==
LOC: 5TH 03-20 11:23
PROVIDERS: ADMIT Psychiatry & Neurology Neurology with Special Qualifications in Child Neurology; ATTEND Psychiatry & Neurology Neurology with Special Qualifications in Child Neurology
DX: S72.001D Fracture of unspecified part of neck of right femur, subsequent encounter for closed fracture with routine healing (principal); I82.411 Acute embolism and thrombosis of right femoral vein; I10 Essential (primary) hypertension; G50.0 Trigeminal neuralgia; D63.8 Anemia in other chronic diseases classified elsewhere; E87.6 Hypokalemia
CPT/HCPCS: 36415; 76700; 80048; 81001; 82040; 82274; 82607; 82728; 83540; 83615; 83735; 84132; 84134; 84466; 85025; 85044; 85652; 86038; 86140; 86225; 87077; 87086; 87088; 87186; 93971; 97542; J1650

== ENCOUNTER 2020-12-26 14:54 | Observation (INO) | payer OTHER ==
[2020-12-26] MEDS ORDERED: ACETAMINOPHEN 325 MG TABLET PO PRN (19:58)
[2020-12-26] MEDS ORDERED: DIPHENHYDRAMINE 25 MG TAB/CAP PO PRN (19:59)
[2020-12-26] MEDS ORDERED: NACHLORIDE 0.45% 1,000 ML IV SCH (20:00)
[2020-12-26] MEDS ORDERED: ONDANSETRON 4 MG/2 ML VIAL IV PRN (20:00)
[2020-12-26] MEDS ORDERED: HYDROMORPHONE HCL 1 MG/ML INJ IV PRN (20:06)
[2020-12-26 20:43] LABS: Absolute Lymphocytes (CBC) 2.1 K/uL (0.7-4.9); Basophils % 1.3 % (0-1.3); Hematocrit 41.2 % (36.0-45.0); Lymphocytes % 25.1 % (15.3-44.8); MPV 7.4 fL (7.6-11.3); RBC Red Blood Cell Count 4.91 M/uL (3.86-4.86)
[2020-12-26] MEDS ORDERED: CEFOXITIN SODIUM 1 GM/VIAL IVPB SCH (21:00)
[2020-12-26 21:06] LABS: Protime INR 1.03
[2020-12-26 21:35] LABS: ALT/SGPT 23 U/L (12-78); AST/SGOT 19 U/L (15-37); Albumin 3.8 g/dL (3.4-5.0); Alkaline Phosphatase 111 U/L (45-117); BUN Blood Urea Nitrogen 16 mg/dL (7-18); Bicarbonate 27 mmol/L (21-32); Bilirubin Direct < 0.1 mg/dL (0-0.2); Bilirubin Total 0.2 mg/dL (0.2-1.0); Glucose Level 98 mg/dL (74-106); Magnesium 2.4 mg/dL (1.8-2.4); Phosphorus 3.2 mg/dL (2.5-4.9); Potassium 4.3 mmol/L (3.5-5.1); Protein, Total 7.7 g/dL (6.4-8.2); Sodium Level 141 mmol/L (136-145)
[2020-12-26 21:37] VITALS: BMI 30.7
[2020-12-26] MEDS ORDERED: cloNIDine HCL 0.1 MG TAB PO PRN (21:47)
[2020-12-26 21:52] LABS: Urine Appearance CLEAR; Urine Bilirubin NEGATIVE (NEG); Urine Blood NEGATIVE (Negative); Urine Color YELLOW; Urine Glucose NEGATIVE (Negative); Urine Protein NEGATIVE (NEG); Urine Specific Gravity 1.015 (1.005-1.030); Urine Urobilinogen 0.2 mg/dL (0.2-1.0)
[2020-12-26] MEDS: CEFOXITIN/SWI 1gm 1 GM/10 ML SYR IV SCH (22:00)
[2020-12-26 22:03] LABS: Urine Microscopic Reflex NO UMIC
[2020-12-26] MEDS ORDERED: CEFOXITIN SODIUM 1 GM/VIAL ONE (22:36)
[2020-12-27 06:19] LABS: Absolute Lymphocytes (CBC) 1.6 K/uL (0.7-4.9); Basophils % 0.6 % (0-1.3); Hematocrit 38.3 % (36.0-45.0); Lymphocytes % 23.7 % (15.3-44.8); RBC Red Blood Cell Count 4.58 M/uL (3.86-4.86)
[2020-12-27 06:36] LABS: Magnesium 2.3 mg/dL (1.8-2.4); Potassium 3.8 mmol/L (3.5-5.1)
[2020-12-27] MEDS: CEFOXITIN/SWI 1gm 1 GM/10 ML SYR IV SCH (08:17)
--- NOTE | 2020-12-27 08:19 | RAD REPORT ---
EXAM DESCRIPTION: CT - Abdomen Pelvis W Contrast - 12/26/2020 9:51 pm CLINICAL HISTORY: abdominal pain COMPARISON: Abdomen Pelvis W Contrast dated 03/16/2019 TECHNIQUE: Biphasic, helical CT imaging of the abdomen and pelvis was performed following 100 ml non -ionic IV contrast. No oral contrast administered. All CT scans are performed using dose optimization technique as appropriate and may include automated exposure control or mA/KV adjustment according to patient size. FINDINGS: No suspicious findings in the lung bases. No cardiomegaly or pericardial effusion. Several small cysts are present in the hepatic parenchyma unchanged from 2019. No solid mass lesion o r other acute liver finding. Portal vein is normal. No pancreatic or peripancreatic abnormality seen. Granulomatous calcifications present in a normal size spleen. No biliary tree dilatation. Gallstones can be occult on CT imaging. However, gallbladder is similar in appearance to 2019. No wall thickening, edema or other evidence for acute disease. Symmetric renal function is seen with no hydronephrosis or suspicious renal mass. No pyelonephritis o r acute parenchymal process. Contracted urinary bladder shows no suspicious finding No adrenal abnorm alities. Uterus and ovaries show no suspicious findings. There do appear to be small remnant cysts or follicles in each ovary showing no growth from the 2019 study. No adnexal mass. Pelvic floor assessm ent is somewhat limited by the right hip prosthesis spray artifact. However, no significant finding s uspected. No gastric dilatation or gastric wall thickening. No small bowel abnormality identified. The appendix is not clearly defined. No history of appendectomy. There is no wall thickening at the tip of the ce cum and there is no inflammatory stranding or other evidence for acute appendicitis. Moderate stool v olume fills the right-side of the colon. No colon wall thickening, mass or edema identifiable. No free air, free fluid or inflammatory stranding. No hernia, mass or bulky lymphadenopathy. Disc and bone degenerative changes are present. No pathologic changes identifiable. IMPRESSION: Contrast enhanced CT abdomen and pelvis showing no acute or emergent finding. Patient has no direct or indirect evidence for appendicitis or other acute process in the right mid a bdomen and right lower quadrant.
[2020-12-27] MEDS ORDERED: LOSARTAN POTASSIUM 50 MG TABLET PO SCH (09:00)
[2020-12-27] MEDS ORDERED: BISOPROLOL 5 MG TABLET PO SCH (09:00)
[2020-12-27] MEDS ORDERED: ENOXAPARIN 40 MG/0.4 ML SQ SCH (09:00)
[2020-12-27] MEDS ORDERED: carBAMazepine 200 MG TAB PO SCH (09:00)
--- NOTE | 2020-12-27 09:01 | RAD REPORT ---
EXAM DESCRIPTION: RAD - Chest Pa And Lat (2 Views) - 12/26/2020 9:59 pm CLINICAL HISTORY: admission Chest pain. COMPARISON: Chest Single View dated 03/18/2018; Chest Single View dated 03/14/2018 FINDINGS: Small calcified granuloma seen left lung base laterally. The lungs are otherwise mildly em physematous but clear. The heart is normal in size. No displaced fractures. IMPRESSION: No acute or concerning finding suspected.
[2020-12-27 09:15] VITALS: O2SAT 93
[2020-12-27 10:03] VITALS: BP 156/74; TEMP 97.2
--- NOTE | 2020-12-29 08:23 | P.DS ---
Admission Date: 12/26/20 Discharge Date: 12/29/20 Disposition: ROUTINE DISCHARGE Discharge Condition: FAIR Brief History of Present Illness: HAS PAIN R SIDE LOWER ABDOMEN WITH RADIATION TO BACK. SHE WAS TENDER IN OFFICE. I KEPT HER FOR OBSERVATION TO HOSPITAL FOR URGENT TESTING. HER CT ABDOMEN AND PELVIS WITH CONTRAST IS NORMAL. SHE IS STABLE TO GO HOME. SHE DID NOT HAVE APPENDICITIS LIKE SUSPECTED. SHE WILL FU WITH GI DOCTOR FOR COLONOSCOPY. Vital Signs/Physical Exam: Temp Pulse Resp BP Pulse Ox 97.2 F 64 16 156/74 H 97 12/27/20 08:00 12/27/20 08:00 12/27/20 08:00 12/27/20 08:00 12/27/20 08:00 Laboratory Data at Discharge: WBC 6.60 K/uL (4.3-10.9) D 12/27/20 06:02 Hgb 12.9 g/dL (12.0-15.0) 12/27/20 06:02 Hct 38.3 % (36.0-45.0) 12/27/20 06:02 Plt Count 233 K/uL (152-406) 12/27/20 06:02 PT 11.9 SECONDS (9.5-12.5) 12/26/20 20:31 INR 1.03 12/26/20 20:31 APTT 30.4 SECONDS (24.3-36.9) 12/26/20 20:31 Sodium 142 mmol/L (136-145) 12/27/20 06:02 Potassium 3.8 mmol/L (3.5-5.1) 12/27/20 06:02 BUN 14 mg/dL (7-18) 12/27/20 06:02 Creatinine 0.72 mg/dL (0.55-1.3) 12/27/20 06:02 Glucose 94 mg/dL (74-106) 12/27/20 06:02 Phosphorus 3.2 mg/dL (2.5-4.9) 12/26/20 20:31 Magnesium 2.3 mg/dL (1.8-2.4) 12/27/20 06:02 Total Bilirubin 0.2 mg/dL (0.2-1.0) 12/26/20 20:31 AST 19 U/L (15-37) 12/26/20 20:31 ALT 23 U/L (12-78) 12/26/20 20:31 Alkaline Phosphatase 111 U/L (45-117) 12/26/20 20:31 Home Medications: Losartan Potassium [Cozaar] 100 mg PO DAILY 03/14/18 bisoproloL fumarate [Zebeta*] 10 mg PO DAILY 03/14/18 carBAMazepine [Carbamazepine] 100 mg PO TID 03/14/18 Followup: Jewel Mendiola MD [ACTIVE - CAN ADMIT] -
[2020-12-30 18:27] LABS: Vitamin D 1,25-Dihydroxy Total 77 pg/mL (18-72); Vitamin D,1,25-OH2, D2 <8 pg/mL
== END 2020-12-27 10:51 | disposition home or self-care (01) ==
LOC: 2ND 14:54 → ERHOLD 15:19 → 2ND 18:39
PROVIDERS: ADMIT Internal Medicine; ATTEND Internal Medicine
DX: R10.31 Right lower quadrant pain (principal); Z20.822 Contact with and (suspected) exposure to COVID-19
CPT/HCPCS: 93005; 85025 ×2; 80048 ×2; 36415 ×2; 83735 ×2; 84100; 85610; 80076; 85730; 82652; 84443; 81003; 82607; 74177; 71046; U0003; Q9967; J1650; J0694; G0378; G0379

== ENCOUNTER 2021-02-05 06:26 | Day surgery (SDC) | payer OTHER ==
[2021-02-04 10:33] LABS: Absolute Lymphocytes (CBC) 1.2 K/uL (0.7-4.9); Basophils % 0.8 % (0-1.3); Hematocrit 41.6 % (36.0-45.0); Lymphocytes % 20.9 % (15.3-44.8); RBC Red Blood Cell Count 4.96 M/uL (3.86-4.86)
[2021-02-04 11:03] LABS: Albumin 4.1 g/dL (3.4-5.0); Bilirubin Direct 0.1 mg/dL (0-0.2); Bilirubin Total 0.5 mg/dL (0.2-1.0); Potassium 3.8 mmol/L (3.5-5.1); Protein, Total 7.7 g/dL (6.4-8.2)
[2021-02-05] MEDS ORDERED: Ringers Lactate 1,000 ML IV ONE (07:09)
[2021-02-05] MEDS ORDERED: LIDOCAINE 1% MPF 5 ML VIAL ONE (07:37)
[2021-02-05] MEDS ORDERED: dexAMETHasone 10 MG/ML VIAL ONE (07:37)
[2021-02-05] MEDS ORDERED: propofoL 200 MG/20 ML VIAL IV ONE (07:37)
[2021-02-05] MEDS ORDERED: FENTANYL CITR 100 MCG/2 ML ONE (07:37)
[2021-02-05] MEDS ORDERED: MIDAZOLAM HCL 2 MG/2 ML INJ ONE (07:37)
[2021-02-05] MEDS ORDERED: ROCURONIUM 50 MG/5 ML VIAL IV ONE (07:38)
[2021-02-05] MEDS ORDERED: ONDANSETRON 4 MG/2 ML VIAL ONE (07:38)
[2021-02-05] MEDS ORDERED: CEFOXITIN/SWI 1gm 0 GM/0 ML SYR ONE (07:44)
[2021-02-05] MEDS ORDERED: CIPROFLOXACIN 400mg IV 400 MG/200 ML BAG IV ONE (07:47)
[2021-02-05] MEDS ORDERED: GLYCOPYRROLATE 0.2 MG/ML SYR ONE (08:12)
[2021-02-05] MEDS ORDERED: EPHEDRINE SULF 50 MG/ML VIAL ONE (08:15)
[2021-02-05] MEDS ORDERED: KETOROLAC 30 MG/ML INJ ONE (08:48)
[2021-02-05 10:00] VITALS: BP 159/68; TEMP 96.2; O2SAT 98
[2021-02-05] MEDS ORDERED: HYDROCODONE/APAP 7.5/325 MG TAB ONE (10:07)
--- NOTE | 2021-02-05 19:46 | OP ---
Date of Procedure: 02/05/2021 Surgeon: Howie Gunter MD Full Time Babysitter: None. Preoperative Diagnosis: Chronic cholecystitis and cholelithiasis. Postoperative Diagnosis: Chronic cholecystitis and cholelithiasis. Procedure: Laparoscopic cholecystectomy. Estimated Blood Loss: Minimal. Specimen: Gallbladder. Findings: As above. Anesthesia: General. Complications: None. Disposition: The patient tolerated the procedure in stable condition, taken to Recovery in good gene ral condition. Procedure In Detail: The patient was brought to the OR and placed in supine position. General anest hesia begun. The patient was prepped and draped in the usual sterile fashion. Marcaine 0.5% was inf iltrated locally. A 15-blade was used to make a 1 cm infraumbilical midline incision. Subcutaneous tissue was divided. Fascia was identified and divided. #1 Vicryl stay suture was placed. Peritonea l cavity was entered with sharp and blunt dissection. A 12 mm trocar was placed into the peritoneal cavity under direct vision. Pneumoperitoneum was established and then three 5 mm trocars were placed , 1 in the epigastrium just to the right of midline and 2 in the right subcostal region. Laparoscopy revealed chronic inflammation of the gallbladder with some adhesions to it. They were taken down wi th sharp and blunt dissection. Fundus was retracted superiorly. Infundibulum was identified and ret racted inferolaterally. Cystic duct and cystic artery were clearly identified with blunt dissection. Clips were placed. Both structures were divided. Cautery was used to remove the gallbladder from the liver bed. Bleeding of the liver bed was controlled with cautery. Gallbladder was retrieved thr ough the umbilicus via an EndoCatch bag. Right upper quadrant was irrigated. Effluent was clear. N o evidence of bleeding or bile leakage appreciated. Subsequently, all trocars were removed under dir ect vision. Stay sutures were tied to each other to reapproximate the fascial defect. Subcutaneous wounds were irrigated. Bleeding was controlled with cautery. 3-0 chromic was used to reapproximate the subcutaneous tissue and brooks used to close the skin. Sterile dressing was applied. Patient w as awakened and taken to Recovery in good general condition. Discharge Note: The patient will go to Day Surgery and home when stable. Disposition: Home. Condition: Stable. Discharge Instructions: Resume home medications and diet. Activity as tolerated. No heavy lifting. Remove outer dressing in 2 days. Shower. Keep wound clean and dry. Follow up in my office 1 week . Call for appointment. Tylenol No. 3 one tablet p.o. q.4 p.r.n. pain. Incentive spirometry as ord ered. /KVNG Voice ID: [id number] Report ID: [id number]
== END 2021-02-05 10:18 | disposition home health service (06) ==
LOC: OR 06:26
PROVIDERS: ATTEND Surgery
PROC: 0FT44ZZ Resection of Gallbladder, Percutaneous Endoscopic Approach (ICD-10-PCS; principal; 2021-02-05 07:30)
DX: K80.10 Calculus of gallbladder with chronic cholecystitis without obstruction (principal); Z20.822 Contact with and (suspected) exposure to COVID-19; Z88.0 Allergy status to penicillin; Z88.2 Allergy status to sulfonamides
CPT/HCPCS: 85025; 80048; 36415; 82150; 80076; 88304; 47562; U0003; J2704; J2250; J3010; J1100; J7120; J2405; J0744